=== PATIENT | female | born 1950 | race Caucasian/White ===

== ENCOUNTER → 2018-02-27 05:27 | Outpatient (CLI) | payer MEDICARE, MEDICAID, SELFPAY ==
--- NOTE | 2018-02-27 11:06 | STRESSREP_ITS ---
Stress Test Report Date: 02/27/2018 Procedure: Pharmacologic stress nuclear imaging study Indications: Chest pain; CAD; PCI Consent: Per the patient Procedure: The patient underwent pharmacologic (Regadenoson) evaluation with a peak heart rate of 98 beats per minute (63 predicted maximal heart rate) and a peak blood pressure of 170/82 mmHg. The baseline ECG demonstrated normal sinus rhythm; nonspecific T wave abnormality. The peak pharmacologic ECG demonstrated no obvious ECG changes. There was an isolated PVC during recovery. There was no complaint of chest discomfort during pharmacologic infusion or recovery. The examination was discontinued secondary to completion of protocol. Impression: 1. Pharmacologic (Regadenoson) evaluation 2. Peak pharmacologic ECG with no obvious ECG changes. 3. There was an isolated PVC during recovery 4. Nuclear images pending Myocardial perfusion imaging study: Technique: The patient was injected with 14.5 millicuries of technetium 99m Cardiolite and subsequently rest SPECT Cardiolite nuclear imaging was obtained in the horizontal long, vertical long, and short axis views. The patient underwent pharmacologic (Regadenoson) evaluation with a peak heart rate of 98 beats per minute (63 % percent predicted maximal heart rate) and a peak blood pressure of 170/82 mmHg. The patient was injected with 44.2 millicuries of technetium 99m Cardiolite and subsequently stress SPECT Cardiolite nuclear imaging was obtained in the horizontal long, vertical long, and short axis views. A gated Cardiolite study at peak stress was obtained. Interpretation: Rest and stress SPECT Cardiolite nuclear imaging status post realignment, normalization, and attenuation correction demonstrate relative uniform tracer uptake and myocardial perfusion appearing within normal limits. There is end systolic thickening and brightening. The gated Cardiolite study demonstrates myocardial thickening and inward wall motion. The reported LVEF is 73 %. Impression: 1. Rest and stress SPECT Cardiolite nuclear imaging demonstrate relative uniform tracer uptake and myocardial perfusion appearing within normal limits. 2. The gated Cardiolite study reports an LVEF of 73 %. This note was generated with [employer] software. It may contain incorrect words, spelling, and punctuation that were not noted in checking the note before signing.
== END ==
PROVIDERS: Family Provider Family Medicine; PCP Family Medicine; Visit Provider Family Medicine
DX: R07.89 Other chest pain (principal)
CPT/HCPCS: 78452; 93017; A9500; A4216; J2785

== ENCOUNTER 2018-08-28 18:47 | Inpatient (IN) | payer MEDICARE, MEDICAID, SELFPAY ==
[2018-08-28] VITALS (8 sets, daily range): BP systolic 119–158; BP diastolic 75–93; PULSE 95–141; RESP 16–23; TEMP 36.8–36.9; O2SAT 95–98; BMI 46.5; BMI 44.0
--- NOTE | 2018-08-28 19:27 | EKG12_ITS ---
Test Reason : CP Blood Pressure : / mmHG Vent. Rate : 110 BPM Atrial Rate : 110 BPM P-R Int : 166 ms QRS Dur : 088 ms QT Int : 354 ms P-R-T Axes : 083 -04 017 degrees QTc Int : 479 ms Sinus tachycardia Cannot rule out Anterior infarct , age undetermined Abnormal ECG Confirmed by JENA HENDRICKSON, MELODIE ([id number]), editor publications MILTON CALLEJAS ([id number]) on 09/02/2018 3:50:12 PM Referred By: Pantera Pizano Confirmed By:MELODIE BELLA MD
[2018-08-28 19:38] LABS: Absolute Lymphocyte Count 0.47 X10^3/ul (0.83-4.51); Absolute Neutrophil Count 3.3 X10^3/uL (2.0-7.7); Basophil# 0.01 X10^3/uL; Basophil% 0.2 % (0-1); Eosinophil# 0.47 X10^3/uL; Hematocrit 46.6 % (37-47); Lymphocyte # 0.47 X10^3/ul (4.0); Mean Corp Hgb Conc 34.3 g/gl (32-36); Mean Corpuscular Hgb 31.7 pg (27.0-32.0); Mean Corpuscular Volume 92.3 fL (81-99); Monocyte% 17.3 % (0-10); Neutrophil # 3.34 X10^3/uL (2.7-7.7); Neutrophil % 64.3 % (47-70); Platelet Count 170 K/mm3 (150-450); RBC Distribution Width SD 47.1 fl (35.1-43.9); Red Blood Count 5.05 M/mm3 (4.2-5.4); White Blood Count 5.2 K/mm3 (4.4-11.0)
[2018-08-28 19:40] LABS: Differential Indicated SCAN CRITERIA MET; POSITIVE COUNT NO; POSITIVE DIFFERENTIAL YES; POSITIVE MORPHOLOGY NO
--- NOTE | 2018-08-28 19:42 | RAD_ITS ---
STUDY: X-RAY CHEST REASON FOR EXAM: Female, 68 years old. CHEST PAIN TECHNIQUE: Single frontal view of the chest. COMPARISON: 7. FINDINGS: Chronic appearing increased interstitial lung markings. There is no demonstrated pleural abnormality. Normal heart size. Normal mediastinum and lv. Normal visualized pulmonary arteries. There is atherosclerotic calcification of the aortic arch with tortuosity. There are diffuse degenerative changes of the visualized thoracic spine. There is degenerative osteoarthritis of the bilateral shoulders. There is no demonstrated abnormality of the visualized soft tissue structures of the upper abdomen. RAD/Chest 1 View (Portable) IMPRESSION: There are no acute findings. Electronically Signed: John Kitchen MD at 20:17 EST , Service support ,
[2018-08-28 20:05] LABS: Anion Gap 11 (5-15); BUN 22 mg/dL (7-18); BUN/Creat Ratio 23.9 RATIO (10-20); Calcium,Total 8.7 mg/dL (8.5-10.1); Chloride 101 mmol/L (98-107); Creatinine, Serum 0.92 mg/dL (0.55-1.02); EST Glomerular Filtration Rate 65 mL/min (>60); Est Glom Filt Rate - Afr Amer 79 mL/min (>60); Estimated Creatinine Clearance 43.21 ml/min; Glucose 147 mg/dL (74-106); Potassium 3.7 mmol/L (3.5-5.1); Sodium Level 137 mmol/L (136-145)
[2018-08-28 20:14] LABS: Anisocytosis RARE; Macrocytosis RARE; Platelet Estimate ADEQUATE (ADEQ)
[2018-08-28] MEDS: 0.9% Normal Saline 1,000 ML 150 ML IV (20:22)
--- NOTE | 2018-08-28 20:37 | ED.VISSUMM ---
- ER Visit Summary Date of Service: 08/28/18 Chief Complaint: Chest pain History of Present Illness: The patient is a 68 F who presents via EMS with history of chest pain. Patient states that approximately an hour prior to EMS arrival she laid down to listen to some audiobooks and felt heaviness across her chest that radiated to both arms and into her neck. She denies shortness of breath. She got up and took 2 nitro tabs which she admits were quite old. This did not change her pain. EMS was called. EMS gave her aspirin along with 1 sublingual nitro and her pain resolved. Patient does state she was recently started on an antibiotic for UTI. She is been checking her vital signs this week and noted that her heart rate has been higher than normal, in the 90s instead of the 60s. Patient does have history of cardiac disease with 2 stents, hypertension, and high cholesterol. She continues to smoke a pack and a half a day. Physical Examination: Vital signs at triage are significant for heart rate of 118, otherwise unremarkable. Patient sitting upright in bed no acute distress. Heart rate is in the upper 90s at the time of my exam. Head neck examination is grossly unremarkable. Heart is regular rate and rhythm. Lung sounds are grossly clear. Abdomen is soft, obese, nontender. Extremity examination feels palpable distal pulses. Test Results: EKG is sinus tach at [address] change. Portable chest x-ray shows no acute findings. CBC is significant only for hemoglobin concentrated at 16. Chemistry studies significant only for glucose of 147. Troponin is minimally elevated at 0.052. Emergency Department Course and Treatment: Patient received aspirin and 1 sublingual nitro with EMS. She has remained pain-free throughout her ER stay. Patient did have a nuclear stress test in February of this year that was unremarkable. On repeat evaluation patient denies any chest pain and states overall she feels good at this time. She will be given a dose of Lovenox and admitted for further cycling of her cardiac enzymes and evaluation. MOHINI score: 5/7 Treatment Plan: [] Disposition: Admit Impression: Chest pain This note was generated with [employer] dictation software. It may contain incorrect words, spelling, and punctuation that were not noted in review of the chart prior to signing ED Disposition - Plan for ED Patient: Chief Complaint: Chest Pain Referrals: Adin Zaragoza MD [Primary Care Provider] -
--- NOTE | 2018-08-28 20:41 | PCM.HP.STD ---
Problem List (1) NSTEMI (non-ST elevated myocardial infarction) Status: Acute (2) Pre-diabetes Status: Chronic (3) Hyperlipidemia Status: Chronic (4) Hypertension Status: Chronic (5) Coronary artery disease Status: Chronic History of Present Illness Date of Admission: 08/28/18 Chief Complaint: chest Pain The patient is a 68 year old F with a significant history of hypertension; hyperlipidemia; prediabetes; CAD status post stents about 20 years ago who presented with gradual onset progressively worsening chest pain while she was lying down. Her chest pain started about 1 hour to 1/2 hours prior to presentation. Her chest pain span her entire chest. The chest pain radiated to her bilateral neck into bilateral arms. She described the pain as tingling and aching. She denies any nausea, vomiting, or diaphoresis. She thinks that her CAD about 20 years ago requiring stent was different from this 1. She reported at that time she had a more deeper pain. She has some old nitroglycerin tablets at home that she took but she had no relief from it. She thinks she did not have any relief from the nitroglycerin because it was old. The emergency squad gave him 3 baby aspirin and nitroglycerin which relieved her pain. At home patient takes Tylenol 324 mg daily and on the day of presentation he took the same dose in the morning and later received more aspirin from paramedics as stated above. Patient reported that the last couple of days she had noticed that her heart rate has been high. She reported that typically her heart rate is between 60-70s but recently her heart rate has been in the high 90s. At emergency department patient had sinus tachycardia with heart rate in the 110s. Patient reported that she was started on antibiotics for the last 3 days because of UTI. At emergency department patient received Lovenox therapeutic dose. In February of this year (2017) patient had unremarkable nuclear stress test. Past Medical History Past Medical History (Chronic Problems): Chronic Problems Pre-diabetes (Chronic) Hyperlipidemia (Chronic) Hypertension (Chronic) Coronary artery disease (Chronic) Allergies No Known Allergies Allergy (Verified 08/28/18 18:47) Home Medications: Ambulatory Orders Medication Instructions Recorded Furosemide [Lasix] 20 mg PO DAILY #30 tablet 04/09/15 Amlodipine [Norvasc] 10 mg PO DAILY 04/10/15 Simvastatin [Zocor] 40 mg PO QHS 04/10/15 Benazepril HCl [Lotensin] 20 mg PO BID 10/17/15 Clonidine HCl 0.3 mg PO DAILY 10/17/15 Clopidogrel Bisulfate [Plavix] 75 mg PO DAILY 10/17/15 Hydrochlorothiazide [Hctz] 25 mg PO DAILY 10/17/15 Losartan Potassium [Cozaar] 50 mg PO BID 10/17/15 Acetaminophen [Tylenol Arthritis] 650 mg PO Q4H PRN PRN 08/28/18 Ascorbic Acid [Vitamin C] 500 mg PO DAILY@0800 08/28/18 Aspirin 325 mg PO DAILY@0808/28/18 Calcium Carb/Vitamin D 1 tab PO DAILY@0808/28/18 [Caltrate-600 With Vit D Tab] Glucosam/Rashaun-Msm1/C/Godfrey/Bosw 1 tab PO DAILY 08/28/18 [Osteo Bi-Flex Caplet] Multivit-Min/FA/Lycopen/Lutein 1 tab PO DAILY 08/28/18 [Adults 50+ Multivitamin Tablet] [place]-3 Fatty Acids/Fish Oil [Cvs 1 cap PO BID 08/28/18 Fish Oil 1,200 mg Softgel] Smz/Tmp Ds [Bactrim Ds] 1 tab PO BID 08/28/18 Surgical History: - - Leg surgery secondary to trauma, coronary artery stents Psychiatric History: No pertinent psych hx VOCATIONAL TRAINING DIRECTOR History: No pertinent VOCATIONAL 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 Denies: Palpitations Respiratory: Denies: Cough, Shortness of breath at rest, Sputum production Gastrointestinal: Denies: Abdominal Pain, Nausea, Vomiting Genitourinary: Denies: Dysuria Musculoskeletal: Denies: Joint Pain, Joint Tenderness Skin: Denies: Rash, Wounds Neurological: Denies: Confusion, Focal weakness, Numbness Psychiatric: Denies: Anxiety, Depression, Homicidal Ideations, Suicidal Ideations Hematologic/ Lymphatic: Denies: Easy Bruising, Easy Bleeding VTE Information - Inpt Only VTE Present on Admission: No VTE Mechan Device Prophylaxis: None VTE Pharm Prophylaxis ordered?: No Reason prophylaxis not ordered:: Treatment Not Indicated - Received Lovenox therapeutic dose in the emergency department. Patient Problems: Active and Suspected Problems NSTEMI (non-ST elevated myocardial infarction) (Acute) - Physical Exam General: Alert, Oriented x3, Cooperative HEENT: Atraumatic, PERRLA, EOMI, Normocephalic Neck: Supple, No JVD, Negative Carotid Bruits Lungs: Diminished Cardiovascular: No murmurs, Tachycardic Abdomen: Bowel Sounds Present, Soft, Non Tender Extremities: No edema, Capillary Refill Less than 3 Seconds Skin: No rashes, No breakdown Musculoskeletal: No Tenderness to Palpation of Joints or Extremities Neurological: Neuro grossly intact Psych/Mental Status: Normal Affect, Appropriate Vital Signs Temp Pulse Resp BP Pulse Ox 98.4 F 97 21 H 158/79 H 97 08/28/18 18:48 08/28/18 20:19 08/28/18 20:19 08/28/18 20:19 08/28/18 20:19 Oxygen Flow Rate (L/min) 2 Oxygen Delivery Method Nasal Cannula Weight: 108.2 kg Body Mass Index (BMI) 46.5 Laboratory Tests Past 24 Hrs 08/28/18 08/28/18 18:45 18:45 WBC 5.2 RBC 5.05 Hgb 16.0 H Hct 46.6 MCV 92.3 MCH 31.7 MCHC 34.3 RDW 14.0 RDW Differential 47.1 H Plt Count 170 MPV 11.0 Immature Gran % (Auto) 0.200 Neut % (Auto) 64.3 Lymph % (Auto) 9.0 L [place] % (Auto) 17.3 H Eos % (Auto) 9.0 H Baso % (Auto) 0.2 Absolute Neuts (auto) 3.3 Absolute Lymphs (auto) 0.47 L Total Counted Not Reportable Differential Comment SEE COMMENT Platelet Estimate ADEQUATE Anisocytosis RARE Macrocytosis RARE Sodium 137 Potassium 3.7 Chloride 101 Carbon Dioxide 25.0 Anion Gap 11 BUN 22 H Creatinine 0.92 Estim Creat Clear Calc 43.21 Est GFR (MDRD) Af Amer 79 Est GFR (MDRD) Non-Af 65 BUN/Creatinine Ratio 23.9 H Glucose 147 H Calcium 8.7 Troponin I 0.052 H Assessment/Plan All Active Problems NSTEMI (non-ST elevated myocardial infarction) (Acute) The patient is a 68 year old F with a significant history of hypertension; hyperlipidemia; prediabetes; CAD status post stents about 20 years ago who presented with gradual onset progressively worsening chest pain while she was lying down and found to have elevated troponin on admission consented for likely NSTEMI. Probable NSTEMI MOHINI score of UA/ STEMI equal to five-points who translates to 26% all cause mortality risk, new or recurrent LA, or severe recurrent ischemia requiring urgent revascularization. Positive for MOHINI score were: age more than 65 years; more than 3 CAD risk factors (hypertension, hypercholesterolemia, current smoker); known CAD; aspirin use in past 7 days; and positive cardiac marker. Heart score of 6 points; moderate score. Risk of major adverse cardiac even of 12 to16.6%. Parameters of heart score was moderate suspicion; age more than 65 years; more than 3 risks factors or history of atherosclerotic disease (hypertension; hypercholesterolemia; obesity; current smoking; prior LA.) Admit to a monitored bed on PCU CXR independently reviewed confirms no acute cardiopulmonary pathology. But with chronic appearing increased interstitial lung markings. EKG independently reviewed confirms sinus tachycardia We will load with Plavix and Place Nitropaste on patient chest. Continue home aspirin 325 mg daily Continue home maintenance dose Plavix after Plavix loading.. Received Lovenox therapeutic dose x1 at emergency department. We will hold off further Lovenox until cardiology sees patient. On home low-dose simvastatin. Hold. High intensity Lipitor ordered. Serial cardiac enzymes trended up Stat EKG as needed for chest pain Due to high risk will consult cardiology for further risk stratification and management. Hypertension On admission blood pressure was not within goal Continue amlodipine, benazepril, clonidine and hydrochlorthiazide Trend blood pressures and adjust blood pressure medication as necessary Sinus tachycardia This could be due to her chest pain. Will check TSH to rule out hyperthyroidism.. Tobacco abuse Counseled Patient declined nicotine patch. Acute cystitis. Patient was on treatments with home Bactrim. She was prescribed 20 doses of Bactrim. So far she has taken 7 doses. Bactrim continued. History of bilateral leg swelling. Patient denies heart failure Home Lasix continued. Bilateral leg pain Home absorbine plus rapid relief continue. Tylenol as needed continued. DVT prophylaxis Not indicated as patient received therapeutic dose of Lovenox at emergency department. Patient with bilateral leg pain will not place SCD at this time. Evaluate for further need of chemoprophylaxis. Code Visit OBSV E&M: 15330 Initial observation care L3
[2018-08-28] MEDS: Enoxaparin 100 MG/ML Syringe SC (20:53)
--- NOTE | 2018-08-28 22:14 | EKG12_ITS ---
Test Reason : CP ADMIT Blood Pressure : / mmHG Vent. Rate : 097 BPM Atrial Rate : 097 BPM P-R Int : 178 ms QRS Dur : 094 ms QT Int : 392 ms P-R-T Axes : 070 -13 012 degrees QTc Int : 497 ms Normal sinus rhythm Cannot rule out Anterior infarct , age undetermined Abnormal ECG When compared with ECG of 28-AUG-2018 18:55, MANUAL COMPARISON REQUIRED, DATA IS UNCONFIRMED Confirmed by JENA HENDRICKSON, MELODIE ([id number]), tape editor MILTON CALLEJAS ([id number]) on 09/02/2018 4:02:27 PM Referred By: Pantera Pizano Confirmed By:MELODIE BELLA MD
[2018-08-28] MEDS: Nitroglycerin Oint 1 INCH PACKET TRANSDERM. (22:45)
[2018-08-28] MEDS: Atorvastatin Calcium 80 MG Tablet PO (22:45)
[2018-08-28] MEDS: Clopidogrel Bisulfate 300 MG Tablet PO (22:45)
[2018-08-28] MEDS: Acetaminophen 325 MG Tablet 650 MG PO (22:49)
[2018-08-28 23:13] LABS: Thyroid Stim Hormone (TSH) 1.05 uIU/mL (0.358-3.74)
[2018-08-29] VITALS (14 sets, daily range): BP systolic 95–150; BP diastolic 49–84; PULSE 53–135; RESP 14–18; TEMP 36.2–37.1; O2SAT 93–95
--- NOTE | 2018-08-29 05:55 | EKG12_ITS ---
Test Reason : AM EKG Blood Pressure : / mmHG Vent. Rate : 095 BPM Atrial Rate : 095 BPM P-R Int : 172 ms QRS Dur : 086 ms QT Int : 382 ms P-R-T Axes : 052 -20 -03 degrees QTc Int : 480 ms Normal sinus rhythm Low voltage QRS Cannot rule out Anterior infarct , age undetermined Abnormal ECG When compared with ECG of 28-AUG-2018 21:50, MANUAL COMPARISON REQUIRED, DATA IS UNCONFIRMED Confirmed by JENA HENDRICKSON, MELODIE ([id number]), senior editor MILTON CALLEJAS ([id number]) on 09/02/2018 4:01:46 PM Referred By: Pantera Pizano Confirmed By:MELODIE BELLA MD
[2018-08-29] MEDS: Nitroglycerin Oint 1 INCH PACKET TRANSDERM. (06:00)
[2018-08-29 06:26] LABS: Hematocrit 42.3 % (37-47); Hemoglobin 14.2 g/dl (12.0-15.0); Mean Corp Hgb Conc 33.6 g/gl (32-36); Mean Corpuscular Hgb 31.2 pg (27.0-32.0); Mean Platelet Vol. 11.3 fl (6.2-12.0); Platelet Count 141 K/mm3 (150-450); RBC Distribution Width CV 14.2 % (11.6-14.6); RBC Distribution Width SD 46.9 fl (35.1-43.9); Red Blood Count 4.55 M/mm3 (4.2-5.4)
[2018-08-29 06:27] LABS: Scan Indicated on CBC? Y/N NO
[2018-08-29 06:32] LABS: International Normalized Ratio 1.2
[2018-08-29 06:33] LABS: Partial Thromboplast Time 42.5 Seconds (24.1-36.2)
[2018-08-29 06:46] LABS: Anion Gap 9 (5-15); BUN 15 mg/dL (7-18); Chloride 108 mmol/L (98-107); Cholesterol 85 mg/dL (200); Creatinine, Serum 0.75 mg/dL (0.55-1.02); EST Glomerular Filtration Rate 82 mL/min (>60); Est Glom Filt Rate - Afr Amer 100 mL/min (>60); Estimated Creatinine Clearance 39.75 ml/min; Glucose 123 mg/dL (74-106); High Density Lipoprotein 22 mg/dL; Potassium 3.6 mmol/L (3.5-5.1); Sodium Level 141 mmol/L (136-145); Triglycerides 156 mg/dL; Very Low Density Lipoprotein 31 mg/dL (5-40)
--- NOTE | 2018-08-29 10:08 | CON.PCM_ITS ---
Problem List (1) Chest pain Status: Acute Reason for Consult Date of Consultation: 08/29/18 History of Present Illness: The patient is a 68 year old F with past medical history significant for hypertension, coronary artery disease, dyslipidemia, diabetes mellitus and nicotine dependence. She presented to the emergency room with complaints of chest pain yesterday. According to the patient, the discomfort started at rest. She describes it as a heavy sensation across her anterior chest and some tingling in her right arm. She could not identify any exacerbating factors. According to her, the discomfort was relieved when she was given sublingual nitroglycerin in the emergency room. She has not had any recurrence of her chest pain since then. X Patient denies any recent history of exertional angina or shortness of breath. According to her, she has had coronary stents put in few years ago. However she is not sure of the neck timeframe. Denies any orthopnea or paroxysmal nocturnal dyspnea. [] Past Medical History Allergies/Adverse Reactions: Allergies No Known Allergies Allergy (Verified 08/28/18 18:47) Home Medications: Ambulatory Orders Medication Instructions Recorded Furosemide [Lasix] 20 mg PO DAILY #30 tablet 04/09/15 Amlodipine [Norvasc] 10 mg PO DAILY 04/10/15 Simvastatin [Zocor] 40 mg PO QHS 04/10/15 Benazepril HCl [Lotensin] 20 mg PO BID 10/17/15 Clonidine HCl 0.3 mg PO DAILY 10/17/15 Clopidogrel Bisulfate [Plavix] 75 mg PO DAILY 10/17/15 Hydrochlorothiazide [Hctz] 25 mg PO DAILY 10/17/15 Losartan Potassium [Cozaar] 50 mg PO BID 10/17/15 Acetaminophen [Tylenol Arthritis] 650 mg PO Q4H PRN PRN 08/28/18 Ascorbic Acid [Vitamin C] 500 mg PO DAILY@0800 08/28/18 Aspirin 325 mg PO DAILY@0800 08/28/18 Calcium Carb/Vitamin D 1 tab PO DAILY@0800 08/28/18 [Caltrate-600 With Vit D Tab] Glucosam/Rashaun-Msm1/C/[place]/Bosw 1 tab PO DAILY 08/28/18 [Osteo Bi-Flex Caplet] Multivit-Min/FA/Lycopen/Lutein 1 tab PO DAILY 08/28/18 [Adults 50+ Multivitamin Tablet] [place]-3 Fatty Acids/Fish Oil [Cvs 1 cap PO BID 08/28/18 Fish Oil 1,200 mg Softgel] Smz/Tmp Ds [Bactrim Ds] 1 tab PO BID 08/28/18 Past Medical History (Chronic Problems): Chronic Problems Pre-diabetes (Chronic) Hyperlipidemia (Chronic) Hypertension (Chronic) Coronary artery disease (Chronic) Surgical History: - - Leg surgery secondary to trauma, coronary artery stents Psychiatric History: No pertinent psych hx 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: No pertinent PAPER COATING SUPERVISOR history - *Family History Maternal Family History: Family History (Last Updated 08/28/18 @ 22:32 by Pantera Pizano MD) Brother Cancer History Items: No pertinent history Paternal Family History: Family History (Last Updated 08/28/18 @ 22:32 by Pantera Pizano MD) Brother Cancer History Items: Heart Disease Lives: Alone Smoking Status: Current every day smoker Tobacco Use: Cigarettes Alcohol: None Review of Systems - Review of Systems General: Denies: Fever, Chills Cardiovascular: Reports: Chest Discomfort at Rest - See history of presenting illness, Peripheral Edema. Denies: Orthopnea, PND Respiratory: Denies: Cough, Hemoptysis Gastrointestinal: Denies: Abdominal Discomfort, Jaundice, Nausea Neurological: Reports: History of CVA Subjectve: Comfortable. No apparent distress Objective: Vital Signs Temp Pulse Resp BP Pulse Ox 98.6 F 92 16 141/84 H 94 08/29/18 05:58 08/29/18 07:22 08/29/18 05:58 08/29/18 05:58 08/29/18 07:12 Oxygen Flow Rate (L/min) 2 Oxygen Delivery Method Room Air Weight: 102.3 kg Body Mass Index (BMI) 44.0 General: Awake, Alert, Oriented x 3, No Acute Distress HEENT: Atraumatic, Normocephalic Oral: Moist Mucosa Neck: No JVD Lungs: Clear to auscultation Cardiovascular: Regular Rhythm, Normal S1, Normal S2 Vascular: No Carotid Bruits Abdomen: Bowel Sounds Present, Soft Extremities: Bilateral Edema +1 Neurological: - - Grossly intact Psych/Mental Status: Appropriate 08/28/18 18:45: WBC 5.2, RBC 5.05, Hgb 16.0 H, Hct 46.6, MCV 92.3, MCH 31.7, MCHC 34.3, RDW 14.0, RDW Differential 47.1 H, Plt Count 170, MPV 11.0, Immature Gran % (Auto) 0.200, Neut % (Auto) 64.3, Lymph % (Auto) 9.0 L, [place] % (Auto) 17.3 H, Eos % (Auto) 9.0 H, Baso % (Auto) 0.2, Absolute Neuts (auto) 3.3, Total Counted Not Reportable 08/28/18 18:45: Sodium 137, Potassium 3.7, Chloride 101, Carbon Dioxide 25.0, Anion Gap 11, BUN 22 H, Creatinine 0.92, Est GFR (MDRD) Af Amer 79, Est GFR (MDRD) Non-Af 65, BUN/Creatinine Ratio 23.9 H, Glucose 147 H, Calcium 8.7, Troponin I 0.052 H 08/28/18 21:45: Troponin I 0.079 H 08/29/18 01:05: Troponin I 0.094 H 08/29/18 05:30: WBC 5.0, RBC 4.55, Hgb 14.2, Hct 42.3, MCV 93.0, MCH 31.2, MCHC 33.6, RDW 14.2, RDW Differential 46.9 H, Plt Count 141 L, MPV 11.3 08/29/18 05:30: PT 15.0 H, INR 1.2, APTT 42.5 H 08/29/18 05:30: Sodium 141, Potassium 3.6, Chloride 108 H, Carbon Dioxide 24.0, Anion Gap 9, BUN 15, Creatinine 0.75, Est GFR (MDRD) Af Amer 100, Est GFR (MDRD) Non-Af 82, BUN/Creatinine Ratio 20.0, Glucose 123 H, Calcium 8.0 L, Triglyceri les 156, Cholesterol 85, LDL Cholesterol 32, VLDL Cholesterol 31, HDL Cholesterol 22 L Rhythm: Normal sinus rhythm EKG: Normal sinus rhythm. Nonspecific ST changes ECHO: Stress Test: Cardiac Cath: PCI: CT Surgery: Holter monitor: EPS: PPM: CXR: Chest CT Scan: Assessment/Plan 1. Chest discomfort with minimally elevated troponin. Consider non-ST elevation myocardial infarction/unstable angina. On aspirin. Agree with starting clopidogrel. Start low-dose beta-blockers. Change nitrates to p.o. Patient has had a stress test done about 6 months ago. Her ejection fraction was noted to be 73%. No ischemia was noted. However with this episode of chest discomfort and minimally elevated troponin and her history of coronary artery disease with percutaneous intervention in the past, I recommended cardiac catheterization with coronary angiography and possible revascularization. Risks benefits were explained to the patient in detail. She understands these and wishes to proceed with cardiac catheterization. However she insists that she will have it done as outpatient. She refuses to stay in the hospital. She is aware of risks of another [place], cardiac arrhythmias and sudden cardiac . She understands these but still insists on going home today. 2. Diabetes mellitus. 3. History of CAD. 4. Hypertension. 5. Dyslipidemia. 6. Nicotine dependence. Counseled to quit As noted above, patient insists on going home. Recommend follow-up as outpatient with Dr. Alford early next week.
[2018-08-29] MEDS: cloNIDine HCl 0.1 MG Tablet 0.3 MG PO (10:49)
[2018-08-29] MEDS: Losartan Potassium 50 MG Tablet PO ×2 (10:50→21:38)
[2018-08-29] MEDS: hydroCHLOROthiazide 25 MG Tablet PO (10:51)
[2018-08-29] MEDS: amLODIPine 10 MG Tablet PO (10:52)
[2018-08-29] MEDS: Furosemide 20 MG Tablet PO (10:52)
[2018-08-29] MEDS: Clopidogrel Bisulfate 75 MG Tablet PO (10:53)
[2018-08-29] MEDS: Lisinopril 20 MG Tablet PO ×2 (10:54→21:38)
--- NOTE | 2018-08-29 13:26 | PCM.PROGNOTE ---
Patient Problems: Active and Suspected Problems NSTEMI (non-ST elevated myocardial infarction) (Acute) Chest pain (Acute) Subjective: The patient came in with chest pain across the anterior chest wall with tingling in the right arm and some radiation into the right side of her neck. She states this pain felt like the last time she needed a stent. She states the pain is all gone now. She denies CP/tightness/heaviness/pressure/SOB/dizziness/LH. Initially she wanted to go home this AM, but is now willing to stay for further testing. 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 - Physical Exam General: Alert, Oriented x3, Cooperative HEENT: Atraumatic, PERRLA, EOMI, Normocephalic Neck: Supple, No JVD, Negative Carotid Bruits Lungs: Clear to auscultation, Normal air movement Cardiovascular: Regular rate, No murmurs Abdomen: Bowel Sounds Present, Soft, Non Tender Extremities: No edema, Capillary Refill Less than 3 Seconds Skin: No rashes, No breakdown Musculoskeletal: No Tenderness to Palpation of Joints or Extremities Neurological: Cranial nerves II-XII grossly intact Psych/Mental Status: Normal Affect, Appropriate, Alert and oriented to time, place, person, mood and affect Vital Signs Temp Pulse Resp BP Pulse Ox 97.8 F 85 18 150/76 H 95 08/29/18 10:46 08/29/18 10:46 08/29/18 10:46 08/29/18 10:46 08/29/18 10:46 Oxygen Flow Rate (L/min) 2 Oxygen Delivery Method Room Air Weight: 225 lb 8.526 oz Body Mass Index (BMI) 44.0 Laboratory Tests Past 24 Hrs 08/28/18 08/28/18 08/28/18 18:45 18:45 21:45 WBC 5.2 RBC 5.05 Hgb 16.0 H Hct 46.6 MCV 92.3 MCH 31.7 MCHC 34.3 RDW 14.0 RDW Differential 47.1 H Plt Count 170 MPV 11.0 Immature Gran % (Auto) 0.200 Neut % (Auto) 64.3 Lymph % (Auto) 9.0 L Bennett % (Auto) 17.3 H Eos % (Auto) 9.0 H Baso % (Auto) 0.2 Absolute Neuts (auto) 3.3 Absolute Lymphs (auto) 0.47 L Total Counted Not Reportable Differential Comment SEE COMMENT Platelet Estimate ADEQUATE Anisocytosis RARE Macrocytosis RARE PT INR APTT Sodium 137 Potassium 3.7 Chloride 101 Carbon Dioxide 25.0 Anion Gap 11 BUN 22 H Creatinine 0.92 Estim Creat Clear Calc 43.21 Est GFR (MDRD) Af Amer 79 Est GFR (MDRD) Non-Af 65 BUN/Creatinine Ratio 23.9 H Glucose 147 H Calcium 8.7 Troponin I 0.052 H 0.079 H Triglycerides Cholesterol LDL Cholesterol VLDL Cholesterol HDL Cholesterol TSH 08/28/18 08/29/18 08/29/18 21:45 01:05 05:30 WBC 5.0 RBC 4.55 Hgb 14.2 Hct 42.3 MCV 93.0 MCH 31.2 MCHC 33.6 RDW 14.2 RDW Differential 46.9 H Plt Count 141 L MPV 11.3 Immature Gran % (Auto) Neut % (Auto) Lymph % (Auto) Bennett % (Auto) Eos % (Auto) Baso % (Auto) Absolute Neuts (auto) Absolute Lymphs (auto) Total Counted Differential Comment Platelet Estimate Anisocytosis Macrocytosis PT INR APTT Sodium Potassium Chloride Carbon Dioxide Anion Gap BUN Creatinine Estim Creat Clear Calc Est GFR (MDRD) Af Amer Est GFR (MDRD) Non-Af BUN/Creatinine Ratio Glucose Calcium Troponin I 0.094 H Triglycerides Cholesterol LDL Cholesterol VLDL Cholesterol HDL Cholesterol TSH 1.05 08/29/18 08/29/18 05:30 05:30 WBC RBC Hgb Hct MCV MCH MCHC RDW RDW Differential Plt Count MPV Immature Gran % (Auto) Neut % (Auto) Lymph % (Auto) Bennett % (Auto) Eos % (Auto) Baso % (Auto) Absolute Neuts (auto) Absolute Lymphs (auto) Total Counted Differential Comment Platelet Estimate Anisocytosis Macrocytosis PT 15.0 H INR 1.2 APTT 42.5 H Sodium 141 Potassium 3.6 Chloride 108 H Carbon Dioxide 24.0 Anion Gap 9 BUN 15 Creatinine 0.75 Estim Creat Clear Calc 39.75 Est GFR (MDRD) Af Amer 100 Est GFR (MDRD) Non-Af 82 BUN/Creatinine Ratio 20.0 Glucose 123 H Calcium 8.0 L Troponin I Triglycerides 156 Cholesterol 85 LDL Cholesterol 32 VLDL Cholesterol 31 HDL Cholesterol 22 L TSH Medical Necessity - Tobacco Use Smoking Status: Current every day smoker Tobacco Use: Cigarettes Assessment/Plan All Active Problems NSTEMI (non-ST elevated myocardial infarction) (Acute) Chest pain (Acute) 1. Chest pain / NSTEMI / Hx CAD - Possible cath friday. Cardiology following. Trop 0.094 max. TSH normal. Lipid panel done. Continue tele. Continue statin, aspirin, HCTZ, imdur, lisinopril, losartan, metoprolol, catapres, norvasc. It is unlear why she is on both ROSIE and ARB. Last stress about 6 months ago. 2. Prediabetes - dietary eval/diabetic diet. 3. Nicotine abuse - patch if desired. Needs cessation. 4. HTN - mildly elevated. 5. HLD - statin 6. UTI - started as outpatient on bactrim 3 days prior to admission. This would be day 4, will do one more day then stop. DVT ppx: lovenox DC planning: Pending cath results Friday This patient was seen by Dong Lee PA-C under the supervision of Doctor Schulz.
[2018-08-29] MEDS: Smz/Tmp Ds Tablet 1 TABLET PO (16:18)
--- NOTE | 2018-08-29 16:26 | CM.UR ---
See instrument and control technician. Met face to face with patient, introduced myself and explained my role. She agreed to assessment at this time. Plan is for heart cath on Friday. Originally she asked to be discharged and come back for outpatient heart cath however Dr. braun told her she is not recommending that. Patient's breath smelled like stale cigarette smoke during assessment. Enrique Briceño, JANNY, [facility].
--- NOTE | 2018-08-29 16:28 | CM.UR ---
Heart Cath planned for Friday. has traditional MCR so can be transferred to MCR facility of her choice, should that become necessary. For any questions contact Case mgmt at ext [phone]
[2018-08-29] MEDS: Atorvastatin Calcium 80 MG Tablet PO (21:38)
[2018-08-29] MEDS: Metoprolol Tartrate 25 MG Tablet PO (21:39)
--- NOTE | 2018-08-29 21:56 | NURSING ---
RN in to assess patient and take VS, she is extremely resistive to care. She did allow me to take her VS but refused to let me complete a head to toe assessment. She did allow me to give her her evening medications. She did deny Chest pain at this time.
[2018-08-30] VITALS (13 sets, daily range): BP systolic 106–143; BP diastolic 42–71; PULSE 49–84; RESP 14–19; TEMP 36.4–36.9; O2SAT 95–99
--- NOTE | 2018-08-30 08:16 | PCM.PROGNOTE ---
Patient Problems: Active and Suspected Problems NSTEMI (non-ST elevated myocardial infarction) (Acute) Chest pain (Acute) Subjective: Afebrile, vital signs stable. Telemetry: SB/NSR and 2 runs of NSVT - asymptomatic Denies any CP, SOB, palpitations, lightheadedness All lab was personally reviewed. Plt's are WNL today. HGBA1C is 6.9 She is on both an ROSIE and an ARB and on Lasix and HCTZ - recent EF on nuclear stress was 75%? Objective: General: alert, oriented X3, NAD, appropriate with normal affect Neck: supple, trachea midline, carotids have brisk upstroke and normal pulse volume, no JVD, no carotid bruits Lungs: CTA, symmetric chest expansion, not tachypneic, able to lie flat with no respiratory distress Heart: Regular rate and rhythm, normal S1, normal S2, no murmur, no gallop, no rub, PMI is on the midclavicular line Abdomen: soft, NT, ND, BS's present Extremities: no edema, no calf tenderness, peripheral pulses are normal, no cyanosis - Physical Exam Vital Signs Temp Pulse Resp BP Pulse Ox 97.6 F L 57 L 18 123/62 H 99 08/30/18 02:30 08/30/18 07:27 08/30/18 02:30 08/30/18 02:30 08/30/18 02:30 Oxygen Flow Rate (L/min) 2 Oxygen Delivery Method Room Air Weight: 225 lb 8.526 oz Body Mass Index (BMI) 44.0 Intake and Output for Last 24 Hours 08/28/18 08/29/18 08/30/18 23:59 23:59 23:59 Intake Total 525 / 525 Balance 525 / 525 Medical Necessity - Tobacco Use Smoking Status: Current every day smoker Tobacco Use: Cigarettes Assessment/Plan All Active Problems NSTEMI (non-ST elevated myocardial infarction) (Acute) Chest pain (Acute) Impressions 1. NSTEMI 2. NSVT - potassium and mag are normal 3. tobacco dependence 4. Diabetes mellitus type 2-hemoglobin A1c is 6.9 5. Hyperlipidemia 6. Hypertension 7. History of coronary artery disease Cath in the AM Code Visit Inpatient E&M: 51860 Subs Hosp L2
[2018-08-30 09:27] LABS: Anion Gap 7 (5-15); BUN 18 mg/dL (7-18); BUN/Creat Ratio 20.9 RATIO (10-20); Calcium,Total 8.4 mg/dL (8.5-10.1); Chloride 106 mmol/L (98-107); Creatinine, Serum 0.86 mg/dL (0.55-1.02); EST Glomerular Filtration Rate 70 mL/min (>60); Est Glom Filt Rate - Afr Amer 85 mL/min (>60); Estimated Creatinine Clearance 46.22 ml/min; Glucose 111 mg/dL (74-106); Magnesium 2.2 mg/dL (1.6-2.6); Potassium 4.2 mmol/L (3.5-5.1); Sodium Level 137 mmol/L (136-145)
[2018-08-30 09:29] LABS: Hematocrit 44.7 % (37-47); Hemoglobin 15.1 g/dl (12.0-15.0); Mean Corp Hgb Conc 33.8 g/gl (32-36); Mean Corpuscular Hgb 31.4 pg (27.0-32.0); Mean Corpuscular Volume 92.9 fL (81-99); Mean Platelet Vol. 10.5 fl (6.2-12.0); Platelet Count 151 K/mm3 (150-450); RBC Distribution Width CV 14.3 % (11.6-14.6); RBC Distribution Width SD 48.1 fl (35.1-43.9); Red Blood Count 4.81 M/mm3 (4.2-5.4); White Blood Count 4.5 K/mm3 (4.4-11.0)
[2018-08-30 09:30] LABS: Scan Indicated on CBC? Y/N NO
[2018-08-30] MEDS: Acetaminophen 325 MG Tablet 650 MG PO (09:36)
[2018-08-30] MEDS: Smz/Tmp Ds Tablet 1 TABLET PO ×2 (09:36→17:43)
[2018-08-30] MEDS: Ascorbic Acid 500 MG Tablet PO (09:37)
[2018-08-30] MEDS: Calcium Carb/Vitamin D 1 TABLET Tablet PO (09:37)
[2018-08-30] MEDS: Aspirin 325 MG Tablet PO (09:37)
[2018-08-30] MEDS: Clopidogrel Bisulfate 75 MG Tablet PO (09:39)
[2018-08-30] MEDS: Metoprolol Tartrate 25 MG Tablet PO (09:40)
[2018-08-30] MEDS: amLODIPine 10 MG Tablet PO (09:40)
[2018-08-30] MEDS: hydroCHLOROthiazide 25 MG Tablet PO (09:42)
[2018-08-30] MEDS: Isosorbide Mononitrate 30 MG Tablet PO (09:42)
[2018-08-30] MEDS: Lisinopril 20 MG Tablet PO ×2 (09:43→21:34)
[2018-08-30 09:54] LABS: Hemoglobin A1c 6.9 % (4.2-6.3)
--- NOTE | 2018-08-30 11:48 | PCM.PN.CARD ---
Subjectve: Patient had a very brief episode of chest pressure yesterday in the afternoon. That made her change her mind and she decided to stay in the hospital. Objective: Vital Signs Temp Pulse Resp BP Pulse Ox 97.8 F 66 19 H 143/71 H 97 08/30/18 09:25 08/30/18 09:40 08/30/18 09:25 08/30/18 09:25 08/30/18 09:25 Oxygen Flow Rate (L/min) 2 Oxygen Delivery Method Room Air Weight: 102.3 kg Body Mass Index (BMI) 44.0 Intake and Output for Last 24 Hours 08/28/18 08/29/18 08/30/18 23:59 23:59 23:59 Intake Total 525 / 525 Balance 525 / 525 General: Awake, Alert, Oriented x 3, No Acute Distress HEENT: Atraumatic Neck: Supple Lungs: Clear to auscultation Cardiovascular: Regular Rhythm, Normal S1, Normal S2 Abdomen: Bowel Sounds Present, Soft Extremities: Bilateral Edema +1 Psych/Mental Status: Appropriate 08/30/18 08:54: WBC 4.5, RBC 4.81, Hgb 15.1 H, Hct 44.7, MCV 92.9, MCH 31.4, MCHC 33.8, RDW 14.3, RDW Differential 48.1 H, Plt Count 151, MPV 10.5 08/30/18 08:54: Hemoglobin A1c 6.9 H 08/30/18 08:54: Sodium 137, Potassium 4.2, Chloride 106, Carbon Dioxide 24.0, Anion Gap 7, BUN 18, Creatinine 0.86, Est GFR (MDRD) Af Amer 85, Est GFR (MDRD) Non-Af 70, BUN/Creatinine Ratio 20.9 H, Glucose 111 H, Calcium 8.4 L, Magnesium 2.2 Rhythm: Normal sinus rhythm. 4 beat run of nonsustained ventricular tachycardia yesterday. Also run of PACs yesterday. EKG: ECHO: Stress Test: Cardiac Cath: PCI: CT Surgery: Holter monitor: EPS: PPM: CXR: Chest CT Scan: Medical Necessity - Tobacco Use Smoking Status: Current every day smoker Tobacco Use: Cigarettes Assessment/Plan 1. Non-ST elevation myocardial infarction. Recommend cardiac catheterization with coronary angiography and possible revascularization. Risks benefits and alternatives explained. She understands these and wishes to proceed. We will schedule with Dr. Alford for tomorrow morning. 2. Diabetes mellitus. 3. History of CAD. 4. Hypertension. 5. Dyslipidemia. 6. Nicotine dependence. Counseled to quit 7. Very short run of nonsustained VT in the setting of #1 above. Continue beta-blockers. For cardiac cath. Also check 2D echocardiogram. As noted above, patient insists on going home. Recommend follow-up as outpatient with Dr. Alford early next week.
--- NOTE | 2018-08-30 11:51 | ECHOD_ITS ---
Reason For Study: chest pain Procedure This was a 2D Doppler, Color Flow transthoracic echocardiogram. Exam performed portable in ICU/CCU. Left Ventricle Normal LV size. Left ventricular systolic function is normal. The estimated ejection fraction is 60 %. Stage 1 diastolic dysfunction. No regional wall motion abnormalities noted. Right Ventricle Normal RV size. Normal systolic function. Atria The left atrium is mildly enlarged. Normal right atrium. Mitral Valve Normal mitral valve. Tricuspid Valve Normal tricuspid valve. Aortic Valve Trisinus/trileaflet aortic valve. Mild focal aortic valve calcification. Pulmonic Valve Normal pulmonic valve. Great Vessels Normal aortic root. The pulmonary artery is normal size. Normal inferior vena cava. Pericardium/Pleural No pericardial effusion. MMode/2D Measurements & Calculations LVIDd: 5.1 cm IVSd: 0.92 cm Ao root diam: 3.2 cm LVIDs: 3.3 cm LVPWd: 1.0 cm RVDd: 3.0 cm FS: 36.1 % LAV(MOD-bp): 83.8 ml LA A4 area: 24.6 cm2 LA dimension(2D): 4.0 cm LAV(MOD-bp) Indexed: 42.7 ml/m2 LAV(MOD-sp2): 79.3 ml LAV(MOD-sp4): 85.4 ml RA A4 area: 15.3 cm2 Time Measurements MV dec time: 0.28 sec Doppler Measurements & Calculations MV E max felton: 106.9 cm/sec Lat Peak E' Felton: 7.3 cm/sec Med Peak E' Felton: 8.9 cm/sec MV A max felton: 119.0 cm/sec E/E' lat: 14.7 E/E' med: 12.0 MV E/A: 0.90 Ao V2 max: 186.6 cm/sec LV V1 max: 104.6 cm/sec PA V2 max: 105.5 cm/sec Ao max P.9 mmHg LV V1 max P.4 mmHg Ao V2 mean: 130.9 cm/sec LV V1 mean P.7 mmHg Ao mean P.4 mmHg LV V1 mean: 78.9 cm/sec Ao V2 VTI: 42.0 cm LV V1 VTI: 27.4 cm Interpretation Summary Normal LV size. Left ventricular systolic function is normal. The estimated ejection fraction is 60 %. Stage 1 diastolic dysfunction. The left atrium is mildly enlarged. Mild focal aortic valve calcification. Ordering Physician: Natasha Rodriguez Referring Physician: Pantera Pizano Performed By: Josselyn Knigth, JUS, RVT
[2018-08-30] MEDS: cloNIDine HCl 0.1 MG Tablet 0.3 MG PO (21:34)
[2018-08-30] MEDS: Atorvastatin Calcium 80 MG Tablet PO (21:34)
[2018-08-31] VITALS (40 sets, daily range): BP systolic 94–148; BP diastolic 33–108; PULSE 42–79; RESP 11–25; TEMP 36.6–36.8; O2SAT 91–98; BMI 43.9
[2018-08-31 04:25] LABS: Mean Corp Hgb Conc 33.3 g/gl (32-36); Mean Corpuscular Hgb 31.6 pg (27.0-32.0); Mean Corpuscular Volume 94.9 fL (81-99); Mean Platelet Vol. 11.4 fl (6.2-12.0); Platelet Count 125 K/mm3 (150-450); RBC Distribution Width CV 14.3 % (11.6-14.6); RBC Distribution Width SD 47.4 fl (35.1-43.9); Red Blood Count 4.11 M/mm3 (4.2-5.4); White Blood Count 5.6 K/mm3 (4.4-11.0)
[2018-08-31 04:30] LABS: International Normalized Ratio 1.1; Partial Thromboplast Time 31.4 Seconds (24.1-36.2); Prothrombin Time (Protime)PT. 13.8 SECONDS (11.7-14.9); Scan Indicated on CBC? Y/N NO
[2018-08-31 04:55] LABS: Anion Gap 10 (5-15); BUN 20 mg/dL (7-18); BUN/Creat Ratio 20.6 RATIO (10-20); Calcium,Total 7.9 mg/dL (8.5-10.1); Chloride 109 mmol/L (98-107); Creatinine, Serum 0.97 mg/dL (0.55-1.02); EST Glomerular Filtration Rate 61 mL/min (>60); Est Glom Filt Rate - Afr Amer 74 mL/min (>60); Estimated Creatinine Clearance 40.98 ml/min; Glucose 126 mg/dL (74-106); Potassium 4.1 mmol/L (3.5-5.1); Sodium Level 141 mmol/L (136-145)
--- NOTE | 2018-08-31 05:55 | EKG12_ITS ---
Test Reason : AM EKG Blood Pressure : / mmHG Vent. Rate : 051 BPM Atrial Rate : 051 BPM P-R Int : 184 ms QRS Dur : 090 ms QT Int : 486 ms P-R-T Axes : 083 -16 -12 degrees QTc Int : 447 ms Sinus bradycardia Cannot rule out Anterior infarct , age undetermined Abnormal ECG When compared with ECG of 29-AUG-2018 05:38, MANUAL COMPARISON REQUIRED, DATA IS UNCONFIRMED Confirmed by JENA HENDRICKSON, MELODIE ([id number]), publishing editor MILTON CALLEJAS ([id number]) on 09/02/2018 3:55:22 PM Referred By: Pantera Pizano Confirmed By:MELODIE BELLA MD
[2018-08-31] MEDS: Clopidogrel Bisulfate 75 MG Tablet PO (06:05)
[2018-08-31] MEDS: Lisinopril 20 MG Tablet PO (06:05)
[2018-08-31] MEDS: Isosorbide Mononitrate 30 MG Tablet PO (06:05)
[2018-08-31] MEDS: amLODIPine 10 MG Tablet PO (06:05)
[2018-08-31] MEDS: Aspirin 325 MG Tablet PO (06:05)
--- NOTE | 2018-08-31 08:32 | PCM.PN.CARD ---
Subjectve: Patient seen and evaluated. Appears to be doing better. Underwent cardiac catheterization this morning Objective: Vital Signs Temp Pulse Resp BP Pulse Ox 98.0 F 51 L 16 112/59 L 96 08/31/18 06:02 08/31/18 06:02 08/31/18 06:02 08/31/18 06:02 08/31/18 06:02 Oxygen Flow Rate (L/min) 2 Oxygen Delivery Method Room Air Weight: 225 lb 8.526 oz Body Mass Index (BMI) 44.0 Intake and Output for Last 24 Hours 08/29/18 08/30/18 08/31/18 23:59 23:59 23:59 Intake Total 525 / 525 1175 / 1175 Balance 525 / 525 1175 / 1175 General: Awake, Alert, Oriented x 3 HEENT: PERRL, EOMI, Sclera Non Icteric Neck: Supple, Good ROM, No Lymph Node Enlargement Lungs: Clear to auscultation Cardiovascular: Regular Rhythm, Normal S1, Normal S2, No Murmurs, No Rubs, No Gallops Vascular: No Carotid Bruits, Normal Femoral Pulses, Normal Radial Pulses, Normal Dorsalis Pedal Pulse, Normal Posterior Tibial Pulses Abdomen: Bowel Sounds Present, Soft, Non Tender, No HSM, No Organomegaly Extremities: No Cyanosis, No Clubbing, No edema Lymphatic: No Lymph Node Enlargement Neurological: No Focal Motor or Sensory Deficit 08/30/18 08:54: WBC 4.5, RBC 4.81, Hgb 15.1 H, Hct 44.7, MCV 92.9, MCH 31.4, MCHC 33.8, RDW 14.3, RDW Differential 48.1 H, Plt Count 151, MPV 10.5 08/30/18 08:54: Hemoglobin A1c 6.9 H 08/30/18 08:54: Sodium 137, Potassium 4.2, Chloride 106, Carbon Dioxide 24.0, Anion Gap 7, BUN 18, Creatinine 0.86, Est GFR (MDRD) Af Amer 85, Est GFR (MDRD) Non-Af 70, BUN/Creatinine Ratio 20.9 H, Glucose 111 H, Calcium 8.4 L, Magnesium 2.2 08/31/18 03:54: WBC 5.6, RBC 4.11 L, Hgb 13.0, Hct 39.0, MCV 94.9, MCH 31.6, MCHC 33.3, RDW 14.3, RDW Differential 47.4 H, Plt Count 125 L, MPV 11.4 08/31/18 03:54: PT 13.8, INR 1.1, APTT 31.4 08/31/18 03:54: Sodium 141, Potassium 4.1, Chloride 109 H, Carbon Dioxide 22.0, Anion Gap 10, BUN 20 H, Creatinine 0.97, Est GFR (MDRD) Af Amer 74, Est GFR (MDRD) Non-Af 61, BUN/Creatinine Ratio 20.6 H, Glucose 126 H, Calcium 7.9 L Rhythm: EKG: ECHO: Stress Test: Cardiac Cath: PCI: CT Surgery: Holter monitor: EPS: PPM: CXR: Chest CT Scan: Medical Necessity - Tobacco Use Smoking Status: Current every day smoker Tobacco Use: Cigarettes Assessment/Plan 1. Non-ST elevation myocardial infarction Patient presented with chest discomfort and a non-ST elevation myocardial infarction. Underwent cardiac catheterization which demonstrated the following: Normal left main coronary artery. Left anterior descending artery with mid 75% stenosis. Left circumflex artery with mid 85% stenosis and a codominant vessel. First obtuse marginal branch with an ostial 75% stenosis. Codominant right coronary artery with a 60-70% stenosis. Left ventricle with low normal ejection fraction. Based on the above angiographic findings the patient would be considered for multivessel angioplasty. 2. Hypertension Continue current medical therapy Thank you for allowing me to participate in the care of your patient. Please don't hesitate to call if any issues arise
--- NOTE | 2018-08-31 08:35 | PN.CARD_ITS ---
Subjectve: Patient seen and evaluated. Appears to be doing better. Underwent cardiac catheterization this morning Objective: Vital Signs Temp Pulse Resp BP Pulse Ox 98.0 F 51 L 16 112/59 L 96 08/31/18 06:02 08/31/18 06:02 08/31/18 06:02 08/31/18 06:02 08/31/18 06:02 Oxygen Flow Rate (L/min) 2 Oxygen Delivery Method Room Air Weight: 225 lb 8.526 oz Body Mass Index (BMI) 44.0 Intake and Output for Last 24 Hours 08/29/18 08/30/18 08/31/18 23:59 23:59 23:59 Intake Total 525 / 525 1175 / 1175 Balance 525 / 525 1175 / 1175 General: Awake, Alert, Oriented x 3 HEENT: PERRL, EOMI, Sclera Non Icteric Neck: Supple, Good ROM, No Lymph Node Enlargement Lungs: Clear to auscultation Cardiovascular: Regular Rhythm, Normal S1, Normal S2, No Murmurs, No Rubs, No Gallops Vascular: No Carotid Bruits, Normal Femoral Pulses, Normal Radial Pulses, Normal Dorsalis Pedal Pulse, Normal Posterior Tibial Pulses Abdomen: Bowel Sounds Present, Soft, Non Tender, No HSM, No Organomegaly Extremities: No Cyanosis, No Clubbing, No edema Lymphatic: No Lymph Node Enlargement Neurological: No Focal Motor or Sensory Deficit 08/30/18 08:54: WBC 4.5, RBC 4.81, Hgb 15.1 H, Hct 44.7, MCV 92.9, MCH 31.4, MCHC 33.8, RDW 14.3, RDW Differential 48.1 H, Plt Count 151, MPV 10.5 08/30/18 08:54: Hemoglobin A1c 6.9 H 08/30/18 08:54: Sodium 137, Potassium 4.2, Chloride 106, Carbon Dioxide 24.0, Anion Gap 7, BUN 18, Creatinine 0.86, Est GFR (MDRD) Af Amer 85, Est GFR (MDRD) Non-Af 70, BUN/Creatinine Ratio 20.9 H, Glucose 111 H, Calcium 8.4 L, Magnesium 2.2 08/31/18 03:54: WBC 5.6, RBC 4.11 L, Hgb 13.0, Hct 39.0, MCV 94.9, MCH 31.6, MCHC 33.3, RDW 14.3, RDW Differential 47.4 H, Plt Count 125 L, MPV 11.4 08/31/18 03:54: PT 13.8, INR 1.1, APTT 31.4 08/31/18 03:54: Sodium 141, Potassium 4.1, Chloride 109 H, Carbon Dioxide 22.0, Anion Gap 10, BUN 20 H, Creatinine 0.97, Est GFR (MDRD) Af Amer 74, Est GFR (MDRD) Non-Af 61, BUN/Creatinine Ratio 20.6 H, Glucose 126 H, Calcium 7.9 L Rhythm: EKG: ECHO: Stress Test: Cardiac Cath: PCI: CT Surgery: Holter monitor: EPS: PPM: CXR: Chest CT Scan: Medical Necessity - Tobacco Use Smoking Status: Current every day smoker Tobacco Use: Cigarettes Assessment/Plan 1. Non-ST elevation myocardial infarction * Patient presented with chest discomfort and a non-ST elevation myocardial infarction. Underwent cardiac catheterization which demonstrated the following: Normal left main coronary artery. Left anterior descending artery with mid 75% stenosis. Left circumflex artery with mid 85% stenosis and a codominant vessel. First obtuse marginal branch with an ostial 75% stenosis. Codominant right coronary artery with a 60-70% stenosis. Left ventricle with low normal ejection fraction. Based on the above angiographic findings the patient would be considered for multivessel angioplasty. 2. Hypertension * Continue current medical therapy * * Thank you for allowing me to participate in the care of your patient. Please don't hesitate to call if any issues arise
--- NOTE | 2018-08-31 08:42 | CL.D_ITS ---
Patient Name: ESPERANZA CHURCH Study Date: 08/31/2018 Performing: Giovani Alford MD Ht: 59.84 inches 152 cm : 1950 Wt: 224.87 lbs 102 kg Age: 68 Gender: female BSA: 1.96 PROCEDURE(S) PERFORMED [id number]/LV CLINICAL PROFILE AND INDICATIONS Indications: ACS <= 24 hrs Heart Failure: None Stress/Imaging Stress/Image Study Performed: No CONCLUSIONS Type vessel coronary artery disease with severe stenosis of the mid left circumflex artery, moderatel y severe disease noted of the mid left anterior descending artery, ostial first obtuse marginal branc h, and moderate proximal right coronary artery stenosis in a codominant vessel. RECOMMENDATIONS Referred for immediate PCI DESCRIPTION OF PROCEDURE The patient arrived to the procedure lab. The risks and benefits of the procedure as well as a full d escription of our services here and current unavailability of surgical backup were fully explained to the patient and/or their significant other prior to the catheterization. The Timeout was completed, verifying the correct patient and procedure. The patient's procedural site was prepped and draped in the usual fashion. Local anesthetic was given subcutaneously to right groin region with Lidocaine 2%. Using a modified Seldinger technique, arterial access was obtained via the right femoral artery, a 5 Fr sheath was inserted. Left Coronary Artery selective angiography was performed in multiple views u sing a 5 Fr. JL4 catheter. Right Coronary Artery selective angiography was then performed in multiple views using a 5 Fr. 3DRC (Silvano) catheter. Left Ventriculography was performed in ROOT projection using a 5 Fr. Pigtail catheter. LV to AO pullback pressures were then recorded. CORONARY ANGIOGRAPHY DOMINANCE: Co- Dominant LEFT HEART ASSESSMENT Left Ventricular Ejection Fraction: by LV Gram 55 % Normal LV wall motion Normal Left Ventricular systolic function LEFT MAIN: Mild calcification LEFT ANTERIOR DECENDING ARTERY: PROX LAD: Previously placed stent is patent MID LAD: 75 % Stenosis CIRCUMFLEX ARTERY: Previously placed stent is patent MID CIRC: 85 % Stenosis OM 1: Ostial - 75 % Stenosis RIGHT CORONARY ARTERY: PROX RCA: 65 % Stenosis COMPLICATIONS PROCEDURE MEDICATIONS Versed 1 mg IV Fentanyl 50 mcg IV Fentanyl 25 mcg IV Oxygen: 2 L/min via nasal cannula Heparin 6000 unit(s) IV 08/31/2018 08:39:17 IV Bolus: .9 NaCl ml total 08/31/2018 08:40:09 SUMMARY OF HEMODYNAMIC DATA Time AIR REST ECG 08:02:04 AO 130/63 (87) SA 08:17:28 LV 127/-2, 15 08:25:31 LV 127/0, 18 08:25:37 LV 121/9, 15 08:26:20 LVp 118/11, 18 08:26:24 AOp 117/-29 (24) 08:26:29 Signed By Giovani Alford MD On 08/31/2018 08:41:31 Giovani Alford MD
--- NOTE | 2018-08-31 09:43 | CL.I_ITS ---
Patient Name: ESPERANZA CHURCH Study Date: 08/31/2018 Performing: Joe Oates MD Ht: 59.84 inches 152 cm : 1950 Wt: 224.87 lbs 102 kg Age: 68 Gender: female BSA: 1.96 PROCEDURE(S) PERFORMED [id number] W OR WO PTCA, SINGLE CORONARY ARTERY [id number], EACH ADD'L CORONARY ART, SAME MAJOR CLINICAL PROFILE AND CO-MORBIDITIES Indications: ACS <= 24 hrs, ACS > 24 hrs, New Onset Angina <= 2 months, Stable Known CAD Heart Failure: None Stress/Imaging Stress/Image Study Performed: No Stress/Image Study Performed: No Angina Classification Anginal Classification w/in 2 Weeks: CCS IV CAD Presentations: Non-STEMI. Symptom onset Date/Time: 08/29/2018 Time Not Available Unstable ang minoo. Comorbidities/Risk Factors: Hypertension Dyslipidemia Prior PCI Current/Recent Smoker (< 1year) CONCLUSIONS Successful PTCA/RUTHY of mid LCX utilizing a 2.5 x 20 Promus Synergy; 85%-->0%, no dissection. Successful PCI with PTCA to the ostial OM#1 with a 2.0 x 8 Balloon; 85%-->10%, no dissection. Successful PCI with PTCA to the ostial OM#1 with a 1.5 x 10 Balloon; 85%-->10%, no dissection. RECOMMENDATIONS Highly recommend quitting all tobacco products Follow up with primary manager social Risk factor modification ASA Indefinitley Plavix for at least 12 months Routine post interventional care Refer for Outpatient Cardiac Rehab Manual sheath removal per protocol Follow up with Dr. Alford Stress test in 3 weeks to eval LAD and RCA distribution. If PCI is needed would recommend long 55 cm sheath. Unable to Mynx groin due to severe diffuse PVD. DESCRIPTION OF PROCEDURE The patient arrived to the procedure lab. The risks and benefits of the procedure as well as a full d escription of our services here and current unavailability of surgical backup were fully explained to the patient and/or their significant other prior to the catheterization. The Timeout was completed, verifying the correct patient and procedure. The patient's procedural site was prepped and draped in the usual fashion. Local anesthetic was given subcutaneously to right groin region with Lidocaine 2% Using a modified Seldinger technique,arterial access was obtained via the right femoral artery, a 5Fr sheath was inserted. Left Coronary Artery selective angiography was performed in multiple views usin g a 5 Fr. JL4 catheter. Right Coronary Artery selective angiography was then performed in multiple vi ews using a 5 Fr. 3DRC (Silvano) catheter. Left Ventriculography was performed in ROOT projection usi ng a 5 Fr. Pigtail catheter. LV to AO pullback pressures were then recorded.The images were reviewed and options discussed. A decision was then made to proceed with an Intervention, IVUS o r other adjunct procedure. Arterial sheath was exchanged for a 6 Fr Sheath. EBU 3.75 Guide catheter was inserted and engaged into the LCA. BMW Guide wire was advanced to the Circumflex. Angiogram performed pre balloon dilatat ion. Emerge 2.00x12 Balloon catheter was inserted. PTCA balloon inflated at 6 atms for 6 secs. PTCA b alloon inflated at 6 atms for 17 secs. PTCA balloon inflated at 6 atms for 6 secs. PTCA balloon infla viral at 6 atms for 7 secs. Angiogram performed post balloon dilatation. Synergy 2.50x20 Drug Eluting s tent was inserted. Angiogram performed post stent deployment. BMW Guide wire was inserted as a stefany wire OM #2 Emerge 2.00x8 Balloon catheter was inserted. Angiogram performed pre balloon dilatation. P TCA balloon inflated at 6 atms for 31 secs. PTCA balloon inflated at 6 atms for 8 secs. Angiogram per formed post balloon dilatation. BMW Guide wire was repositioned to the 1st OM Emerge 2.00x8 Balloon c atheter was inserted. Angiogram performed pre balloon dilatation. Emerge push 1.50x8 Balloon catheter was inserted. Euphora SC 1.5x10 Balloon catheter was inserted. PTCA balloon inflated at 8 atms for 14 secs. Angiogram performed post balloon dilatation. Contrast was injected through th e sheath and the Right Iliac and Femoral artery were assessed for possible closure device. The arter ial sheath was sutured in place and capped INTERVENTION INFORMATION LESION SITE: Circumflex (Mid) Lesion Complexity: High/C, lesion at bifurcation: No, thrombus present: No, lesion length: 20 mm, cul prit lesion: Yes Pre Stenosis: 85 % Pre intervention MOHINI flow: 2 PROCEDURE: Drug Eluting Stent with pre dilatation. Post Stenosis: 0 % Post intervention MOHINI flow: 3 Lesion Devices: Duran .014 BMW Shelby Straight 190cm [place] Sci EMERGE MR 2.00x12 BALLOON [place] Sci Synergy MR RUTHY 2.50x20 LESION SITE: 2nd OM (Ostial) Lesion Complexity: Non-High/Non-C, lesion at bifurcation: Yes, thrombus present: No, lesion length: 8 mm, culprit lesion: No Pre Stenosis: 75 % Pre intervention MOHINI flow: 2 PROCEDURE: Balloon Angioplasty Post Stenosis: 10 % Post intervention MOHINI flow: 3 Lesion Devices: Duran .014 BMW Shelby Straight 190cm [place] Sci EMERGE MR 2.00x08 BALLOON LESION SITE: 1st OM (Ostial) Lesion Complexity: Non-High/Non-C, lesion at bifurcation: Yes, thrombus present: No, lesion length: 8 mm, culprit lesion: No Pre Stenosis: 85 % Pre intervention MOHINI flow: 3 PROCEDURE: Balloon Angioplasty 10 % Post intervention MOHINI flow: 3 Lesion Devices: Duran .014 BMW Shelby Straight 190cm [place] Sci EMERGE MR 2.00x08 BALLOON [place] [employer] EMERGE PUSH MR 1.50x08 BALLOON Medtronic SC EUPHORA RX 1.5x10 BALLOON COMPLICATIONS No Complications PROCEDURE MEDICATIONS Versed 1 mg IV Fentanyl 50 mcg IV Fentanyl 25 mcg IV Fentanyl 25 mcg IV Fentanyl 25 mcg IV Fentanyl 25 mcg IV Oxygen: 2 L/min via nasal cannula Heparin 6000 unit(s) IV 08/31/2018 08:39:17 Nitro 200 mcg IC 08/31/2018 08:41:45 Nitro 200 mcg IC 08/31/2018 08:41:45 IV Bolus: .9 NaCl 700ml total 08/31/2018 08:40:09 SUMMARY OF HEMODYNAMIC DATA Time AIR REST ECG 08:02:04 AO 130/63 (87) SA 08:17:28 LV 127/-2, 15 08:25:31 LV 127/0, 18 08:25:37 LV 121/9, 15 08:26:20 LVp 118/11, 18 08:26:24 AOp 117/-29 (24) 08:26:29 Signed By Joe Oates MD On 08/31/2018 09:43:09 Joe Oates MD
[2018-08-31] MEDS: 0.9% Normal Saline 1,000 ML 150 ML IV (10:00)
[2018-08-31] MEDS: Morphine 2 MG/ML Syringe IV (10:00)
--- NOTE | 2018-08-31 10:00 | NURSING ---
Pt arrived to ICU writhing in the bed in pain from her left hip hurting. Pramod, optical laboratory technician staff reports pt was painful during whole procedure. Reports pt received Fentanyl for a total of 150mcg. IV noted to appear infiltrated. New IV placed and Morphine 2mg IV given. Dr Schulz on floor and to pt room to assess for pain relief interventions.
--- NOTE | 2018-08-31 10:03 | PN_ITS ---
Patient Problems: Active and Suspected Problems NSTEMI (non-ST elevated myocardial infarction) (Acute) Chest pain (Acute) Subjective: All events of the past 24 hours of been reviewed. Patient is a 68-year-old female with a history of coronary artery disease and stents who continues to smoke. She was admitted to the hospital with NSTEMI and went for cardiac catheterization today. Cardiac catheterization revealed a 55% ejection fraction with normal left ventricular wall motion. There was a 75% stenosis in the mid LAD, 85% stenosis of the mid circumflex artery and 75% stenosis of the OM1 branch. The right coronary artery had a 65% stenosis. She underwent cardiac intervention by Dr. Joe Oates had successful PTCA/RUTHY of the mid left circumflex lesion, PCI with PTCA to the ostial OM #1 branch and PTCA to the second OM lesion. The RCA was not stented. Dr. Oates recommends a stress test in 3 weeks to evaluate LAD and RCA distribution. Dr. Oates also mentions she has severe diffuse peripheral vascular disease. She is afebrile and vital signs are stable. She is 94-96% saturated on room air today. All lab was personally reviewed. CBC is remarkable for a low platelet count at 125,000 but is otherwise unremarkable. Electrolytes are within normal limits and the BUN is 20 with a creatinine of 0.97 today, up from 0.75 at admission. - Physical Exam Vital Signs Temp Pulse Resp BP Pulse Ox 98.0 F 51 L 16 112/59 L 96 08/31/18 06:02 08/31/18 06:02 08/31/18 06:02 08/31/18 06:02 08/31/18 06:02 Oxygen Flow Rate (L/min) 2 Oxygen Delivery Method Room Air Weight: 225 lb 8.526 oz Body Mass Index (BMI) 44.0 Intake and Output for Last 24 Hours 08/29/18 08/30/18 08/31/18 23:59 23:59 23:59 Intake Total 525 / 525 1175 / 1175 Balance 525 / 525 1175 / 1175 Laboratory Tests Past 24 Hrs 08/31/18 08/31/18 08/31/18 03:54 03:54 03:54 WBC 5.6 RBC 4.11 L Hgb 13.0 Hct 39.0 MCV 94.9 MCH 31.6 MCHC 33.3 RDW 14.3 RDW Differential 47.4 H Plt Count 125 L MPV 11.4 PT 13.8 INR 1.1 APTT 31.4 Sodium 141 Potassium 4.1 Chloride 109 H Carbon Dioxide 22.0 Anion Gap 10 BUN 20 H Creatinine 0.97 Estim Creat Clear Calc 40.98 Est GFR (MDRD) Af Amer 74 Est GFR (MDRD) Non-Af 61 BUN/Creatinine Ratio 20.6 H Glucose 126 H Calcium 7.9 L Medical Necessity - Tobacco Use Smoking Status: Current every day smoker Tobacco Use: Cigarettes Assessment/Plan All Active Problems History of coronary artery stent placement (Acute 08/31/18) Atherosclerosis of coronary artery of [place] heart with angina pectoris (Acute) NSTEMI (non-ST elevated myocardial infarction) (Acute) Chest pain (Acute)
[2018-08-31] MEDS: fentaNYL 100 MCG/2 ML Ampul 25 MCG IV ×3 (10:15→11:52)
[2018-08-31] MEDS: 0.9% NaCl Peripheral Flush Adult/Peds IV ×2 (10:18→10:38)
[2018-08-31 11:45] LABS: ACT Activated Clotting Time 136 sec (74-137)
--- NOTE | 2018-08-31 11:45 | CRPHASE1 ---
Patient Data/Charges Surface Grinder Tender:: Joe Oates Refer Phase II:: Yes Phase II Referral:: [facility] Start Phase II:: After follow up visit with Cardiology Phase I Charge:: Level I - Education Risk Factors/Lifestyle Smoking Status: Current every day smoker Hx Hypertension: Yes Hx Metabolic Disorders: Yes Hx Dyslipidemia: Yes Hx Obesity: Yes Height: 5 ft Weight:: 225 lb BMI: 43.9 Post-Menopausal: Yes Stress: Long-standing Risk Factor for Sedentary Lifestyle: Highest Risk Family History: Family History (Last Updated 08/28/18 @ 22:32 by Pantera Pizano MD) Brother Cancer Past Cardiac Illness: Coronary Artery Disease, Previous PCI w/Stent Laboratory Values: Cardiac Rehab Phase I Labs Hemoglobin A1c 6.9 % (4.2-6.3) H 08/30/18 08:54 Triglycerides 156 mg/dL (-199) 08/29/18 05:30 Cholesterol 85 mg/dL (200) 08/29/18 05:30 LDL Cholesterol 32 mg/dL (0-130) 08/29/18 05:30 HDL Cholesterol 22 mg/dL (40-) L 08/29/18 05:30 Phase I Education Given On:: [place], Nutrition, Antiplatelet medication, CHF, Smoking cessation Issues Affecting Care:: Physical Knowledge of Condition:: Yes Learning Preferences: Verbal, Written, Audio/Visual, Demonstration Medical/Surgical History [place]:: Yes - NSTEMI CAD:: Yes Hypertension:: Yes Dyslipidemia:: Yes PTCA:: Yes - years ago Ambulation Notes:: uses a walker, post CVA
--- NOTE | 2018-08-31 11:49 | CRPHASE1_ITS ---
Patient Data/Charges Medical Social Worker:: Joe Oates Refer Phase II:: Yes Phase II Referral:: [facility] Start Phase II:: After follow up visit with Cardiology Phase I Charge:: Level I - Education Risk Factors/Lifestyle Smoking Status: Current every day smoker Hx Hypertension: Yes Hx Metabolic Disorders: Yes Hx Dyslipidemia: Yes Hx Obesity: Yes Height: 5 ft Weight:: 225 lb BMI: 43.9 Post-Menopausal: Yes Stress: Long-standing Risk Factor for Sedentary Lifestyle: Highest Risk Family History: Family History (Last Updated 08/28/18 @ 22:32 by Pantera Pizano MD) Brother Cancer Past Cardiac Illness: Coronary Artery Disease, Previous PCI w/Stent Laboratory Values: Cardiac Rehab Phase I Labs Hemoglobin A1c 6.9 % (4.2-6.3) H 08/30/18 08:54 Triglycerides 156 mg/dL (-199) 08/29/18 05:30 Cholesterol 85 mg/dL (200) 08/29/18 05:30 LDL Cholesterol 32 mg/dL (0-130) 08/29/18 05:30 HDL Cholesterol 22 mg/dL (40-) L 08/29/18 05:30 Phase I Education Given On:: [place], Nutrition, Antiplatelet medication, CHF, Smoking cessation Issues Affecting Care:: Physical Knowledge of Condition:: Yes Learning Preferences: Verbal, Written, Audio/Visual, Demonstration Medical/Surgical History [place]:: Yes - NSTEMI CAD:: Yes Hypertension:: Yes Dyslipidemia:: Yes PTCA:: Yes - years ago Ambulation Notes:: uses a walker, post CVA
--- NOTE | 2018-08-31 11:49 | CRPH1.INSTRU ---
General Education CAD and cardiac anatomy and function:: Patient communicates acknowledgment, Needs reinforcement Explanation of diagnoses and procedures:: Patient communicates acknowledgment, Needs reinforcement Sign/Symptoms of [place]:: Patient communicates acknowledgment, Needs reinforcement Antiplatelet therapy: Patient communicates acknowledgment, Needs reinforcement Proper use of NTG-SL: Patient communicates acknowledgment, Needs reinforcement Emergency procedures and activation of EMS: Patient communicates acknowledgment, Needs reinforcement Compliance of all prescribed medications: Patient communicates acknowledgment, Needs reinforcement Smoking Patient Nicotine/Smoking Risk Factors Are:: Cigarettes Recommendations Include:: Smoking cessation strategies/Smoking packet, Participation in a smoking cessation program Nicotine/Smoking Response Code:: Patient communicates acknowledgment, Needs reinforcement Dyslipidemia Patient Dyslipidemia Risk Factors Are:: Total Cholesterol, Triglycerides, HDL, LDL Recommendations Include:: Lipid profile provided, Reviewed NCEP/ATP guidelines, Therapeutic Lifestyle Change dietary guidelines Dyslipidemia Response Code:: Patient communicates acknowledgment, Needs reinforcement Overweight/Obesity Patient Overweight/Obesity Risk Factors Are:: Obesity - > or = 30 Recommendations Include:: Weight loss of 5-10%, Reduced calorie diet, Exercise 5-7 times/week Overweight/Obesity:: Patient communicates acknowledgment, Needs reinforcement Hypertension Recommendations Include:: Maintain BP <130/85, DASH dietary guidelines, Decrease/maintain normal body weight, Moderation of ETOH Hypertension:: Patient communicates acknowledgment, Needs reinforcement Heart Disease Patient Heart Disease Risk Factors Are:: Previous cardiac event Recommendations Include:: Educated family members of their risk, Educated family members of importance of prevention of heart disease Heart Disease Response Code:: Patient communicates acknowledgment, Needs reinforcement Diabetes Patient Diabetes Risk Factors Are:: No documented hx of diabetes Diabetes:: Not instructed Metabolic Syndrome Patient Metabolic Syndrome Risk Factors Are [3 of 5]:: Waist circumference > 35 [female] or 40 [male], High triglyceride >150, Hypertension, Low HDL <40 [male] or < 50 [female] Recommendations Include:: Reinforce compliance to risk factor modifications, Encouraged follow-up with Primary Care Physician Metabolic Syndrome Response Code:: Patient communicates acknowledgment, Needs reinforcement Sedentary Patient Sedentary Risk Factors Are:: Lack of regular exercise Recommendations Include:: Aerobic exercise 5-7 times/week for 20-30 minutes continuously, Benefits of regular exercise, Discussed home walking program, Monitored Outpatient Cardiac Rehab Sedentary Response Code:: Patient communicates acknowledgment, Needs reinforcement Stress Recommendations Include:: Identification of stressors, and assessment of coping skills, Stress management techniques Stress Response Code:: Patient communicates acknowledgment, Needs reinforcement
[2018-08-31 11:50] LABS: ACT Activated Clotting Time 175 sec (74-137)
--- NOTE | 2018-08-31 11:52 | CRPH1.INST_ITS ---
General Education CAD and cardiac anatomy and function:: Patient communicates acknowledgment, Needs reinforcement Explanation of diagnoses and procedures:: Patient communicates acknowledgment, Needs reinforcement Sign/Symptoms of [place]:: Patient communicates acknowledgment, Needs reinforcement Antiplatelet therapy: Patient communicates acknowledgment, Needs reinforcement Proper use of NTG-SL: Patient communicates acknowledgment, Needs reinforcement Emergency procedures and activation of EMS: Patient communicates acknowledgment, Needs reinforcement Compliance of all prescribed medications: Patient communicates acknowledgment, Needs reinforcement Smoking Patient Nicotine/Smoking Risk Factors Are:: Cigarettes Recommendations Include:: Smoking cessation strategies/Smoking packet, Participation in a smoking cessation program Nicotine/Smoking Response Code:: Patient communicates acknowledgment, Needs re inforcement Dyslipidemia Patient Dyslipidemia Risk Factors Are:: Total Cholesterol, Triglycerides, HDL, LDL Recommendations Include:: Lipid profile provided, Reviewed NCEP/ATP guidelines, Therapeutic Lifestyle Change dietary guidelines Dyslipidemia Response Code:: Patient communicates acknowledgment, Needs re inforcement Overweight/Obesity Patient Overweight/Obesity Risk Factors Are:: Obesity - > or = 30 Recommendations Include:: Weight loss of 5-10%, Reduced calorie diet, Exercise 5-7 times/week Overweight/Obesity:: Patient communicates acknowledgment, Needs reinforcement Hypertension Recommendations Include:: Maintain BP <130/85, DASH dietary guidelines, Decrease/maintain normal body weight, Moderation of ETOH Hypertension:: Patient communicates acknowledgment, Needs reinforcement Heart Disease Patient Heart Disease Risk Factors Are:: Previous cardiac event Recommendations Include:: Educated family members of their risk, Educated family members of importance of prevention of heart disease Heart Disease Response Code:: Patient communicates acknowledgment, Needs reinforcement Diabetes Patient Diabetes Risk Factors Are:: No documented hx of diabetes Diabetes:: Not instructed Metabolic Syndrome Patient Metabolic Syndrome Risk Factors Are [3 of 5]:: Waist circumference > 35 [female] or 40 [male], High triglyceride >150, Hypertension, Low HDL <40 [male] or < 50 [female] Recommendations Include:: Reinforce compliance to risk factor modifications, Encouraged follow-up with Primary Care Physician Metabolic Syndrome Response Code:: Patient communicates acknowledgment, Needs reinforcement Sedentary Patient Sedentary Risk Factors Are:: Lack of regular exercise Recommendations Include:: Aerobic exercise 5-7 times/week for 20-30 minutes continuously, Benefits of regular exercise, Discussed home walking program, Monitored Outpatient Cardiac Rehab Sedentary Response Code:: Patient communicates acknowledgment, Needs reinforcement Stress Recommendations Include:: Identification of stressors, and assessment of coping skills, Stress management techniques Stress Response Code:: Patient communicates acknowledgment, Needs reinforcement
--- NOTE | 2018-08-31 15:18 | PN_ITS ---
Patient Problems: Active and Suspected Problems NSTEMI (non-ST elevated myocardial infarction) (Acute) Chest pain (Acute) Subjective: Pt seen post cath post stent/balloon procedure. No CP, no SOB. No Tightness/heaviness/pressure. Pt c/o hip pain. She is otherwise resting comfortably. - Physical Exam General: Alert, Oriented x3, Cooperative HEENT: Atraumatic, PERRLA, EOMI, Normocephalic Neck: Supple, No JVD, Negative Carotid Bruits Lungs: Clear to auscultation, Normal air movement Cardiovascular: Regular rate, No murmurs Abdomen: Bowel Sounds Present, Soft, Non Tender Extremities: No edema, Capillary Refill Less than 3 Seconds Skin: No rashes, No breakdown Musculoskeletal: No Tenderness to Palpation of Joints or Extremities Neurological: Cranial nerves II-XII grossly intact Psych/Mental Status: Normal Affect, Appropriate, Alert and oriented to time, place, person, mood and affect Vital Signs Temp Pulse Resp BP Pulse Ox 98.1 F 64 19 H 118/69 98 08/31/18 12:00 08/31/18 14:30 08/31/18 14:00 08/31/18 14:30 08/31/18 14:00 Oxygen Flow Rate (L/min) 2 Oxygen Delivery Method Room Air Weight: 225 lb Body Mass Index (BMI) 44.0 Intake and Output for Last 24 Hours 08/29/18 08/30/18 08/31/18 23:59 23:59 23:59 Intake Total 525 / 525 1175 / 1175 379 / 379 Balance 525 / 525 1175 / 1175 379 / 379 Laboratory Tests Past 24 Hrs 08/31/18 08/31/18 08/31/18 03:54 03:54 03:54 WBC 5.6 RBC 4.11 L Hgb 13.0 Hct 39.0 MCV 94.9 MCH 31.6 MCHC 33.3 RDW 14.3 RDW Differential 47.4 H Plt Count 125 L MPV 11.4 PT 13.8 INR 1.1 APTT 31.4 Activated Clotting Time Sodium 141 Potassium 4.1 Chloride 109 H Carbon Dioxide 22.0 Anion Gap 10 BUN 20 H Creatinine 0.97 Estim Creat Clear Calc 40.98 Est GFR (MDRD) Af Amer 74 Est GFR (MDRD) Non-Af 61 BUN/Creatinine Ratio 20.6 H Glucose 126 H Calcium 7.9 L 08/31/18 08/31/18 09:25 11:34 WBC RBC Hgb Hct MCV MCH MCHC RDW RDW Differential Plt Count MPV PT INR APTT Activated Clotting Time 175 H 136 Sodium Potassium Chloride Carbon Dioxide Anion Gap BUN Creatinine Estim Creat Clear Calc Est GFR (MDRD) Af Amer Est GFR (MDRD) Non-Af BUN/Creatinine Ratio Glucose Calcium Medical Necessity - Tobacco Use Smoking Status: Current every day smoker Tobacco Use: Cigarettes Assessment/Plan All Active Problems History of coronary artery stent placement (Acute 08/31/18) Atherosclerosis of coronary artery of [place] heart with angina pectoris (Acute) NSTEMI (non-ST elevated myocardial infarction) (Acute) Chest pain (Acute) 1. Chest pain / NSTEMI / Hx CAD - s/p cath, PTCA/RUTHY LCX, PCI x2 with no stent. Will need stress test in 3 weeks. Cardiology following. Trop 0.094 max. TSH normal. Continue asa, statin, catapres, plavix, hctz, lopressor, lisinopril, imdur. 2. T2DM with morbid obesity - not on any medications at home. Should start metformin as o/p will need to wait at least 3 days. A1C 6.9. She should also stick to a cardiac and calorie controlled diet at discharge with the goal of both losing weight and decreasing her A1C. 3. Nicotine abuse - patch if desired. Needs cessation. Pt reluctant to quit, however given the severity of her cardiac disease this is very important. 4. HTN - Improved. 5. HLD - statin 6. UTI - completed 5 days bactrim - dc bactrim. DVT ppx: lovenox DC planning: Likely home tomorrow. This patient was seen by Dong Lee PA-C under the supervision of Doctor Lev andrade.
--- NOTE | 2018-08-31 18:35 | NURSING ---
Pt up s/p bedrest. Walked to and used BR and then assisted to chair. R groin w/ slight bruising but remains soft and free of drainage. Will continue to monitor.
[2018-08-31] MEDS: Atorvastatin Calcium 80 MG Tablet PO (21:19)
[2018-08-31] MEDS: cloNIDine HCl 0.1 MG Tablet PO (21:32)
[2018-09-01] VITALS (12 sets, daily range): BP systolic 108–150; BP diastolic 51–67; PULSE 46–83; RESP 14–20; TEMP 36.4–36.9; O2SAT 91–100
[2018-09-01 04:04] LABS: Hematocrit 41.5 % (37-47); Hemoglobin 13.8 g/dl (12.0-15.0); Mean Corp Hgb Conc 33.3 g/gl (32-36); Mean Corpuscular Hgb 30.9 pg (27.0-32.0); Mean Platelet Vol. 10.4 fl (6.2-12.0); Platelet Count 151 K/mm3 (150-450); RBC Distribution Width CV 14.1 % (11.6-14.6); Red Blood Count 4.46 M/mm3 (4.2-5.4); White Blood Count 5.3 K/mm3 (4.4-11.0)
[2018-09-01 04:09] LABS: Scan Indicated on CBC? Y/N NO
[2018-09-01 04:19] LABS: Anion Gap 9 (5-15); BUN 16 mg/dL (7-18); BUN/Creat Ratio 20.8 RATIO (10-20); Chloride 110 mmol/L (98-107); Creatinine, Serum 0.77 mg/dL (0.55-1.02); EST Glomerular Filtration Rate 80 mL/min (>60); Est Glom Filt Rate - Afr Amer 97 mL/min (>60); Estimated Creatinine Clearance 39.75 ml/min; Glucose 91 mg/dL (74-106); Potassium 4.1 mmol/L (3.5-5.1); Sodium Level 143 mmol/L (136-145)
--- NOTE | 2018-09-01 07:13 | PCM.PN.CARD ---
Subjectve: Patient seen and evaluated. Appears to be doing better this morning. No chest pain no groin pain Objective: Vital Signs Temp Pulse Resp BP Pulse Ox 98.4 F 60 14 128/61 H 98 09/01/18 04:00 09/01/18 06:00 09/01/18 06:00 09/01/18 06:00 09/01/18 06:00 Oxygen Flow Rate (L/min) 2 Oxygen Delivery Method Room Air Weight: 225 lb Body Mass Index (BMI) 44.0 Intake and Output for Last 24 Hours 08/30/18 08/31/18 09/01/18 23:59 23:59 23:59 Intake Total 1175 / 1175 1152 / 1152 Output Total 200 / 200 Balance 1175 / 1175 952 / 952 General: Awake, Alert, Oriented x 3 HEENT: PERRL, EOMI, Sclera Non Icteric Neck: Supple, Good ROM, No Lymph Node Enlargement Lungs: Clear to auscultation Cardiovascular: Regular Rhythm, Normal S1, Normal S2, No Murmurs, No Rubs, No Gallops Vascular: No Carotid Bruits, Normal Femoral Pulses, Normal Radial Pulses, Normal Dorsalis Pedal Pulse, Normal Posterior Tibial Pulses Abdomen: Bowel Sounds Present, Soft, Non Tender, No HSM, No Organomegaly Extremities: No Cyanosis, No Clubbing, No edema Neurological: No Focal Motor or Sensory Deficit Psych/Mental Status: Appropriate 09/01/18 03:50: WBC 5.3, RBC 4.46, Hgb 13.8, Hct 41.5, MCV 93.0, MCH 30.9, MCHC 33.3, RDW 14.1, RDW Differential 48.0 H, Plt Count 151, MPV 10.4 09/01/18 03:50: Sodium 143, Potassium 4.1, Chloride 110 H, Carbon Dioxide 24.0, Anion Gap 9, BUN 16, Creatinine 0.77, Est GFR (MDRD) Af Amer 97, Est GFR (MDRD) Non-Af 80, BUN/Creatinine Ratio 20.8 H, Glucose 91, Calcium 8.0 L Rhythm: EKG: ECHO: Stress Test: Cardiac Cath: PCI: CT Surgery: Holter monitor: EPS: PPM: CXR: Chest CT Scan: Medical Necessity - Tobacco Use Smoking Status: Current every day smoker Tobacco Use: Cigarettes Assessment/Plan 1. Non-ST elevation myocardial infarction Patient presented with chest discomfort and a non-ST elevation myocardial infarction. Underwent cardiac catheterization which demonstrated the following: Normal left main coronary artery. Left anterior descending artery with mid 75% stenosis. Left circumflex artery with mid 85% stenosis and a codominant vessel. First obtuse marginal branch with an ostial 75% stenosis. Codominant right coronary artery with a 60-70% stenosis. Left ventricle with low normal ejection fraction. Based on the above angiographic findings the patient underwent angioplasty and stenting of the mid circumflex artery with ballooning of the diagonal vessel. The hemo globin remained stable and creatinine remained stable. No EKG changes noted. The patient will be brought back electively for stenting of the left anterior descending artery by Dr. Oates. Would maintain the current medications for now. Patient would be arranged to follow-up in the interim with a physician travel assistant in the office prior to the next angioplasty and then eventual follow-up with me. 2. Hypertension Continue current medical therapy Stable from my standpoint for discharge Thank you for allowing me to participate in the care of your patient. Please don't hesitate to call if any issues arise
--- NOTE | 2018-09-01 07:16 | PN.CARD_ITS ---
Subjectve: Patient seen and evaluated. Appears to be doing better this morning. No chest pain no groin pain Objective: Vital Signs Temp Pulse Resp BP Pulse Ox 98.4 F 60 14 128/61 H 98 09/01/18 04:00 09/01/18 06:00 09/01/18 06:00 09/01/18 06:00 09/01/18 06:00 Oxygen Flow Rate (L/min) 2 Oxygen Delivery Method Room Air Weight: 225 lb Body Mass Index (BMI) 44.0 Intake and Output for Last 24 Hours 08/30/18 08/31/18 09/01/18 23:59 23:59 23:59 Intake Total 1175 / 1175 1152 / 1152 Output Total 200 / 200 Balance 1175 / 1175 952 / 952 General: Awake, Alert, Oriented x 3 HEENT: PERRL, EOMI, Sclera Non Icteric Neck: Supple, Good ROM, No Lymph Node Enlargement Lungs: Clear to auscultation Cardiovascular: Regular Rhythm, Normal S1, Normal S2, No Murmurs, No Rubs, No Gallops Vascular: No Carotid Bruits, Normal Femoral Pulses, Normal Radial Pulses, Normal Dorsalis Pedal Pulse, Normal Posterior Tibial Pulses Abdomen: Bowel Sounds Present, Soft, Non Tender, No HSM, No Organomegaly Extremities: No Cyanosis, No Clubbing, No edema Neurological: No Focal Motor or Sensory Deficit Psych/Mental Status: Appropriate 09/01/18 03:50: WBC 5.3, RBC 4.46, Hgb 13.8, Hct 41.5, MCV 93.0, MCH 30.9, MCHC 33.3, RDW 14.1, RDW Differential 48.0 H, Plt Count 151, MPV 10.4 09/01/18 03:50: Sodium 143, Potassium 4.1, Chloride 110 H, Carbon Dioxide 24.0, Anion Gap 9, BUN 16, Creatinine 0.77, Est GFR (MDRD) Af Amer 97, Est GFR (MDRD) Non-Af 80, BUN/Creatinine Ratio 20.8 H, Glucose 91, Calcium 8.0 L Rhythm: EKG: ECHO: Stress Test: Cardiac Cath: PCI: CT Surgery: Holter monitor: EPS: PPM: CXR: Chest CT Scan: Medical Necessity - Tobacco Use Smoking Status: Current every day smoker Tobacco Use: Cigarettes Assessment/Plan 1. Non-ST elevation myocardial infarction * Patient presented with chest discomfort and a non-ST elevation myocardial infarction. Underwent cardiac catheterization which demonstrated the following: Normal left main coronary artery. Left anterior descending artery with mid 75% stenosis. Left circumflex artery with mid 85% stenosis and a codominant vessel. First obtuse marginal branch with an ostial 75% stenosis. Codominant right coronary artery with a 60-70% stenosis. Left ventricle with low normal ejection fraction. Based on the above angiographic findings the patient underwent angioplasty and stenting of the mid circumflex artery with ballooning of the diagonal vessel. The hemo globin remained stable and creatinine remained stable. No EKG changes noted. * The patient will be brought back electively for stenting of the left anterior descending artery by Dr. Oates. Would maintain the current medications for now. * Patient would be arranged to follow-up in the interim with a physician library media assistant in the office prior to the next angioplasty and then eventual follow-up with me. 2. Hypertension * Continue current medical therapy * * Stable from my standpoint for discharge * * Thank you for allowing me to participate in the care of your patient. Please don't hesitate to call if any issues arise
--- NOTE | 2018-09-01 08:28 | PCM.DC ---
- Discharge Diagnoses Current Active Problems: Current Active and Chronic Problems NSTEMI (non-ST elevated myocardial infarction) (Acute) Chest pain (Acute) You will use the following diet at home:: Cardiac - carb controlled Your food should be the consistency of: Regular Your liquids should be the consistency of: Regular/Thin Discharge Activity: - - Try and work up to walking for 30 minutes at least 6 times a week. No hills for the next few weeks. May shower in (days): 1 Weight Bearing Status: Full weight bearing Lifting Restrictions: no more than 10 lbs Call your doctor if your incision/area has: Continuous Slow Oozing, Sudden Increased Bleeding, Increased Pain/ Swelling, Increased Redness, Foul Smelling Discharge, Swelling at the incision site Call your doctor if you observe: Fever of 101 or Higher, Shortness of breath, Dizziness, Fainting spells, Chest pain, Increased palpitations (irregular heartbeat), Calf discomfort Instructions: Tips for Quitting Smoking (Cardiovascular), Planning to Quit Smoking, Getting Support for Quitting Smoking, Understanding Peripheral Artery Disease Additional Instructions: You had a stent placed in the circumflex artery and the diagonal branch was dilated with a balloon but did not get a stent. There is still disease in the Left anterior descending artery and the right coronary artery and this will need to be addressed going forward.......you will most likely need more stents. In addition to coronary artery disease you also have peripheral vascular disease. This was obvious when the femoral artery in the right groin was accessed during the cardiac catheterization. You may need stents in your legs going forward. It is adviseable to quit smoking. There is a program for smoking cessation at the hospital and it is run by the respiratory therapists. You are no longer pre-diabetic you have diabetes mellitus type II. You should discuss treatment with your PCP. Your medications have changed to better protect your hard until you can have stents to the other arteries that are occluded. Please take your medications as instructed. Pending Tests on Discharge: ECHO report Allergies/Adverse Reactions: Allergies No Known Allergies Allergy (Verified 08/28/18 18:47) Medications to take at Discharge Amlodipine [Norvasc] 10 mg PO DAILY 04/10/15 Benazepril HCl [Lotensin] 20 mg PO BID 10/17/15 Clopidogrel Bisulfate [Plavix] 75 mg PO DAILY 10/17/15 Hydrochlorothiazide [Hctz] 25 mg PO DAILY 10/17/15 Acetaminophen [Tylenol Arthritis] 650 mg PO Q4H PRN PRN 08/28/18 Ascorbic Acid [Vitamin C] 500 mg PO DAILY@0800 08/28/18 Aspirin 325 mg PO DAILY@0800 08/28/18 Calcium Carb/Vitamin D [Caltrate-600 With Vit D Tab] 1 tab PO DAILY@0800 08/28/18 Glucosam/Rashaun-Msm1/C/Godfrey/Bosw [Osteo Bi-Flex Caplet] 1 tab PO DAILY 08/28/18 Multivit-Min/FA/Lycopen/Lutein [Adults 50 Plus Multivitamin Tb] 1 tab PO DAILY 08/28/18 [place]-3 Fatty Acids/Fish Oil [Cvs Fish Oil 1,200 mg Softgel] 1 cap PO BID 08/28/18 Atorvastatin Calcium [Lipitor] 80 mg PO QHS #30 tablet 09/01/18 Isosorbide Mononitrate [Imdur] 30 mg PO DAILY #30 tablet 09/01/18 Lisinopril [Zestril] 20 mg PO BID #60 tablet 09/01/18 Metoprolol Tartrate [Lopressor (beta kiel)] 25 mg PO BID #60 tablet 09/01/18 Nitroglycerin [Nitrostat] 0.4 mg SUBLINGUAL Q5M PRN #1 bottle 09/01/18 The following prescriptions were given: Atorvastatin Calcium [Lipitor] 80 mg PO QHS #30 tablet Isosorbide Mononitrate [Imdur] 30 mg PO DAILY #30 tablet Nitroglycerin [Nitrostat] 0.4 mg SUBLINGUAL Q5M PRN #1 bottle PRN Reason: Cardiac/Chest Pain Lisinopril [Zestril] 20 mg PO BID #60 tablet Metoprolol Tartrate [Lopressor (beta kiel)] 25 mg PO BID #60 tablet Primary Care Physician: Adin Zaragoza MD [Primary Care Provider] - Please follow up with your Primary Care Physician in: 5-7 days Test Results: Test results from this visit will be discussed in further detail at your follow-up appointment, if applicable. Please Follow Up With: Giovani Alford MD When: VOLUNTEER SERVICES DIRECTOR or PA in Rocío's office in 2 weeks
--- NOTE | 2018-09-01 08:41 | PCM.DC.SUM ---
Discharge Date and Diagnosis Date of Admission: 08/28/18 Date of Discharge: 09/01/18 - Primary Discharge Diagnosis Active and Suspected Problems NSTEMI (non-ST elevated myocardial infarction) (Acute) - type I NSVT (nonsustained ventricular tachycardia) (Acute) Post PTCA (Acute) - Secondary Discharge Diagnosis Chronic Problems Tobacco dependence (Chronic) PVD (peripheral vascular disease) (Chronic) Diabetes mellitus type 2 in obese (Chronic) History of coronary artery stent placement (Chronic 08/31/18) Hyperlipidemia (Chronic) Hypertension (Chronic) Hospital Course and Treatment Imaging Results: Clinical Impression(s) from Imaging Studies Chest X-Ray 08/28/18 19:42 IMPRESSION: There are no acute findings. Electronically Signed: John Kitchen MD at 20:17 EST , Service support , Laboratory Results - last 24 hr 08/31/18 08/31/18 09/01/18 09:25 11:34 03:50 WBC 5.3 RBC 4.46 Hgb 13.8 Hct 41.5 MCV 93.0 MCH 30.9 MCHC 33.3 RDW 14.1 RDW Differential 48.0 H Plt Count 151 MPV 10.4 Activated Clotting Time 175 H 136 Sodium Potassium Chloride Carbon Dioxide Anion Gap BUN Creatinine Estim Creat Clear Calc Est GFR (MDRD) Af Amer Est GFR (MDRD) Non-Af BUN/Creatinine Ratio Glucose Calcium 09/01/18 03:50 WBC RBC Hgb Hct MCV MCH MCHC RDW RDW Differential Plt Count MPV Activated Clotting Time Sodium 143 Potassium 4.1 Chloride 110 H Carbon Dioxide 24.0 Anion Gap 9 BUN 16 Creatinine 0.77 Estim Creat Clear Calc 39.75 Est GFR (MDRD) Af Amer 97 Est GFR (MDRD) Non-Af 80 BUN/Creatinine Ratio 20.8 H Glucose [address] Operations: None Procedures: Cardiac catheterization - with PTCA/RUTHY to the mid circumflex artery and balloon angioplasty of the OM#1. Still has a 75% stenosis of the LAD and a 65% stenosis of the RCA Summary of Care Provided: The patient is a 68 year old F with a past medical history of coronary artery disease, PTCA, tobacco dependence, diabetes mellitus type 2, morbid obesity, hypertension and hyperlipidemia who presented to the emergency department at [facility] on 08/28/2018 complaining of chest pain. She had received aspirin and nitroglycerin in the squad and this relieved her pain. At presentation to the emergency room the EKG revealed sinus tachycardia with a heart rate in the 110s. There was no ST segment elevation. The troponin was 0.052 at presentation to the emergency room and the third troponin was 0.094. She was loaded with Plavix in the emergency department and received Nitropaste and a therapeutic dose of Lovenox. Aspirin and statin were continued. She was seen in consultation by Dr. Rodriguez from cardiology who recommended a cardiac catheterization. Catheterization was performed by Dr. Giovani Alford on 08/31/2018 and showed an 85% stenosis of the mid circumflex, 75% stenosis of the OM1, 75% stenosis of the LAD and 65% stenosis of the proximal RCA. The left ventriculogram showed a 55% ejection fraction with normal left ventricular wall motion. She was referred to Dr. Oates for intervention and had successful PTCA/RUTHY of the mid circumflex lesion and successful PCI with PTCA to the ostial OM #1. Dr. Oates mentioned in his dictation that she has severe peripheral vascular disease as evidenced at the time of the puncture of the right femoral artery for cardiac catheterization. Postprocedure she was transported to the cardiac care unit. Overnight she had no significant dysrhythmia but had an occasional isolated PAC. She had an echocardiogram done prior to discharge but the results are not available at this time. She was seen by Dr. Alford and cleared for discharge. She will be brought back electively for stenting of the left anterior descending artery by Dr. Oates. The right groin site had minimal ecchymosis with no hematoma formation at the time of discharge. The bandage was dry with no bleeding. She will follow-up in the [facility] office with the physician's anesthesiologists' assistant in 2 weeks. General: alert, oriented X3, NAD, appropriate with normal affect Neck: supple, trachea midline, carotids have brisk upstroke and normal pulse volume, no JVD, no carotid bruits Lungs: CTA, symmetric chest expansion, not tachypneic, able to lie flat with no respiratory distress Heart: Regular rate and rhythm, normal S1, normal S2, no murmur, no gallop, no rub, PMI is on the midclavicular line Abdomen: soft, NT, ND, BS's present Extremities: no edema, no calf tenderness, peripheral pulses are normal, no cyanosis This note was generated with [employer] dictation software. It may contain incorrect words, spelling, and punctuation that were not noted in checking the note before signing. - Physical Exam Vital Signs Temp Pulse Resp BP Pulse Ox 97.5 F L 67 18 150/67 H 100 09/01/18 08:00 09/01/18 08:00 09/01/18 08:00 09/01/18 08:00 09/01/18 08:00 Oxygen Flow Rate (L/min) 2 Oxygen Delivery Method Room Air Weight: 225 lb Body Mass Index (BMI) 44.0 Intake and Output for Last 24 Hours 08/30/18 08/31/18 09/01/18 23:59 23:59 23:59 Intake Total 1175 / 1175 1152 / 1152 Output Total 200 / 200 Balance 1175 / 1175 952 / 952 Laboratory Tests Past 24 Hrs 08/31/18 08/31/18 09/01/18 09:25 11:34 03:50 WBC 5.3 RBC 4.46 Hgb 13.8 Hct 41.5 MCV 93.0 MCH 30.9 MCHC 33.3 RDW 14.1 RDW Differential 48.0 H Plt Count 151 MPV 10.4 Activated Clotting Time 175 H 136 Sodium Potassium Chloride Carbon Dioxide Anion Gap BUN Creatinine Estim Creat Clear Calc Est GFR (MDRD) Af Amer Est GFR (MDRD) Non-Af BUN/Creatinine Ratio Glucose Calcium 09/01/18 03:50 WBC RBC Hgb Hct MCV MCH MCHC RDW RDW Differential Plt Count MPV Activated Clotting Time Sodium 143 Potassium 4.1 Chloride 110 H Carbon Dioxide 24.0 Anion Gap 9 BUN 16 Creatinine 0.77 Estim Creat Clear Calc 39.75 Est GFR (MDRD) Af Amer 97 Est GFR (MDRD) Non-Af 80 BUN/Creatinine Ratio 20.8 H Glucose 91 Calcium 8.0 L Discharge Activity: - - Try and work up to walking for 30 minutes at least 6 times a week. No hills for the next few weeks. May shower in (days): 1 Weight Bearing Status: Full weight bearing Call your doctor if your incision/area has: Continuous Slow Oozing, Sudden Increased Bleeding, Increased Pain/ Swelling, Increased Redness, Foul Smelling Discharge, Swelling at the incision site Call your doctor if you observe: Fever of 101 or Higher, Shortness of breath, Dizziness, Fainting spells, Chest pain, Increased palpitations (irregular heartbeat), Calf discomfort Home Medications: Medications to take at Discharge Amlodipine [Norvasc] 10 mg PO DAILY 04/10/15 Benazepril HCl [Lotensin] 20 mg PO BID 10/17/15 Clopidogrel Bisulfate [Plavix] 75 mg PO DAILY 10/17/15 Hydrochlorothiazide [Hctz] 25 mg PO DAILY 10/17/15 Acetaminophen [Tylenol Arthritis] 650 mg PO Q4H PRN PRN 08/28/18 Ascorbic Acid [Vitamin C] 500 mg PO DAILY@0800 08/28/18 Aspirin 325 mg PO DAILY@0800 08/28/18 Calcium Carb/Vitamin D [Caltrate-600 With Vit D Tab] 1 tab PO DAILY@0800 08/28/18 Glucosam/Rashaun-Msm1/C/Godfrey/Bosw [Osteo Bi-Flex Caplet] 1 tab PO DAILY 08/28/18 Multivit-Min/FA/Lycopen/Lutein [Adults 50 Plus Multivitamin Tb] 1 tab PO DAILY 08/28/18 [place]-3 Fatty Acids/Fish Oil [Cvs Fish Oil 1,200 mg Softgel] 1 cap PO BID 08/28/18 Atorvastatin Calcium [Lipitor] 80 mg PO QHS #30 tablet 09/01/18 Isosorbide Mononitrate [Imdur] 30 mg PO DAILY #30 tablet 09/01/18 Lisinopril [Zestril] 20 mg PO BID #60 tablet 09/01/18 Metoprolol Tartrate [Lopressor (beta darwin)] 25 mg PO BID #60 tablet 09/01/18 Nitroglycerin [Nitrostat] 0.4 mg SUBLINGUAL Q5M PRN #1 bottle 09/01/18 Following Prescrptions Were Given to Patient: Atorvastatin Calcium [Lipitor] 80 mg PO QHS #30 tablet Isosorbide Mononitrate [Imdur] 30 mg PO DAILY #30 tablet Nitroglycerin [Nitrostat] 0.4 mg SUBLINGUAL Q5M PRN #1 bottle PRN Reason: Cardiac/Chest Pain Lisinopril [Zestril] 20 mg PO BID #60 tablet Metoprolol Tartrate [Lopressor (beta darwin)] 25 mg PO BID #60 tablet Primary Care Physician: Adin Zaragoza MD [Primary Care Provider] - Please follow up with your Primary Care Physician in: 5-7 days Please Follow Up With: Giovani Alford MD When: AUXILIARY ENGINEER or PA in [place]'s office in 2 weeks Patient Instructions: Tips for Quitting Smoking (Cardiovascular), Understanding Peripheral Artery Disease, Planning to Quit Smoking, Getting Support for Quitting Smoking Medical Necessity - Tobacco Use Smoking Status: Current every day smoker - 1 PPD Tobacco Use: Cigarettes Meaningful Use Info Meaningful Use Diagnoses (Choose all that apply): AMI - AMI Aspirin given w/in 24hrs of arrival?: Yes ASA at discharge?: Yes Statins at discharge?: Yes Quoc/ARB at discharge?: Yes Beta Darwin at discharge?: Yes Done w/ Acute MT measure.: Yes Code Visit Inpatient E&M: 78682 Disch Hosp
[2018-09-01] MEDS: Ascorbic Acid 500 MG Tablet PO (08:57)
[2018-09-01] MEDS: Calcium Carb/Vitamin D 1 TABLET Tablet PO (08:57)
[2018-09-01] MEDS: Aspirin 325 MG Tablet PO (08:57)
[2018-09-01] MEDS: Isosorbide Mononitrate 30 MG Tablet PO (08:58)
[2018-09-01] MEDS: Metoprolol Tartrate 25 MG Tablet PO (08:58)
[2018-09-01] MEDS: Clopidogrel Bisulfate 75 MG Tablet PO (08:59)
[2018-09-01] MEDS: amLODIPine 10 MG Tablet PO (08:59)
[2018-09-01] MEDS: hydroCHLOROthiazide 25 MG Tablet PO (08:59)
[2018-09-01] MEDS: Lisinopril 20 MG Tablet PO (09:00)
--- NOTE | 2018-09-01 10:00 | EKG12_ITS ---
Test Reason : AM EKG Blood Pressure : / mmHG Vent. Rate : 061 BPM Atrial Rate : 061 BPM P-R Int : 184 ms QRS Dur : 092 ms QT Int : 444 ms P-R-T Axes : 079 -18 -04 degrees QTc Int : 446 ms Normal sinus rhythm Low voltage QRS Borderline ECG When compared with ECG of 31-AUG-2018 10:50, MANUAL COMPARISON REQUIRED, DATA IS UNCONFIRMED Confirmed by JENA HENDRICKSON, MELODIE ([id number]), field map editor MILTON CALLEJAS ([id number]) on 09/04/2018 2:23:57 PM Referred By: Pantera Pizano Confirmed By:MELODIE BELLA MD
--- NOTE | 2018-09-04 16:31 | CASEMGMT ---
JANNY BARRAGAN Discharge Follow-up Phone Call: YESSICA: Baltazar Strata: 3 Call Date: 09/02/18 & 09/04/18 Discharge Date: 09/01/18 Time of Call: 1630 Duration: 0 ? Admitting Diagnosis: NSTEMI This RN LAUREL attempted to contact pt via phone regarding discharge follow-up. Attempts on 09/02 and 09/04 both with no answer, no voicemail option. Derrick Keith RN
--- OUTSIDE RECORDS SUMMARY | 2018-12-02 07:42 | XMS RPT_ITS ---
:1950 Author Organization OHIP Support Name Relationship Address Phone R Unavailable Unavailable Unavailable RADHA WILLIS Unavailable Unavailable + [place] R Unavailable Unavailable Unavailable R Unavailable Unavailable Unavailable HAVEN, DRE Unavailable [address] + [place] [address] R Unavailable Unavailable Unavailable HAVEN, DRE Unavailable [address] + [place] [address] R Unavailable Unavailable Unavailable R Unavailable Unavailable Unavailable R Unavailable Unavailable Unavailable R Unavailable Unavailable Unavailable R Unavailable Unavailable Unavailable HAVEN, DRE Unavailable [address] + [place] [address] R Unavailable Unavailable Unavailable R Unavailable Unavailable Unavailable R Unavailable Unavailable Unavailable R Unavailable Unavailable Unavailable R Unavailable Unavailable Unavailable R Unavailable Unavailable Unavailable R Unavailable Unavailable Unavailable R Unavailable Unavailable Unavailable R Unavailable Unavailable Unavailable R Unavailable Unavailable Unavailable NONE Unavailable Unavailable Unavailable NONE Unavailable Unavailable Unavailable NONE Unavailable Unavailable Unavailable NONE Unavailable Unavailable Unavailable HAVEN, DRE Unavailable [address] + [place] [address] R Unavailable Unavailable Unavailable D Unavailable Unavailable Unavailable HAVEN, DRE Unavailable [address] + [place] [address] NONE Unavailable Unavailable Unavailable NONE Unavailable Unavailable Unavailable NONE Unavailable Unavailable Unavailable NONE Unavailable Unavailable Unavailable Care Team Providers Name Role Phone ADIN HUERTA MD Attending Unavailable ADIN HUERTA MD Primary Care Unavailable ADIN HUERTA MD Attending Unavailable ADIN HUERTA MD Primary Care Unavailable ADIN HUERTA MD Attending Unavailable ADIN HUERTA MD Primary Care Unavailable ADIN HUERTA MD Attending Unavailable ADIN HURETA MD Primary Care Unavailable ADIN HUERTA Primary Care Unavailable Pantera iPzano Admitting Unavailable Pantera Pizano Referring Unavailable Natasha Rodriguez Consulting Unavailable Larissa Schulz Attending Unavailable Agyepong, Pantera Admitting Unavailable Agyepong, Pantera Attending Unavailable Agyepong, Pantera Referring Unavailable [facility] Unavailable Agyepong, Pantera Consulting Unavailable Agyepong, Pantera Admitting Unavailable Agyepong, Pantera Referring Unavailable [facility] Unavailable Michael, Natasha Consulting Unavailable Sementi, Larissa Attending Unavailable Sementi, Larissa Consulting Unavailable Agyepong, Pantera Admitting Unavailable Michael, Natasha Attending Unavailable Agyepong, Pantera Referring Unavailable [facility] Unavailable Michael, Natasha Consulting Unavailable Sementi, Larissa Consulting Unavailable Agyepong, Pantera Admitting Unavailable Sementi, Larissa Attending Unavailable Agyepong, Pantera Referring Unavailable [facility] Unavailable Michael, Natasha Consulting Unavailable Sementi, Larissa Consulting Unavailable Sementi, Larissa Attending Unavailable Agyepong, Pantera Admitting Unavailable Agyepong, Pantera Referring Unavailable [facility] Unavailable Michael, Natasha Consulting Unavailable Sementi, Larissa Consulting Unavailable ADIN HUERTA Attending Unavailable HUERTAADIN Referring Unavailable [facility] Unavailable Agyepong, Pantera Admitting Unavailable Rocío, Giovani Attending Unavailable Agyepong, Pantera Referring Unavailable [facility] Unavailable Michael, Natasha Consulting Unavailable Sementi, Larissa Consulting Unavailable Agyepong, Pantera Admitting Unavailable Sementi, Larissa Attending Unavailable Agyepong, Pantera Referring Unavailable [facility] Unavailable Michael, Natasha Consulting Unavailable Sementi, Larissa Consulting Unavailable Will Smyth Attending Unavailable [facility] Referring Unavailable [facility] Unavailable Joe Oates Attending Unavailable Joe Oates Referring Unavailable Michael, Natasha Consulting Unavailable Rocío, Giovani Attending Unavailable Agyepong, Pantera Referring Unavailable Rocío, Giovani Attending Unavailable Agyepong, Pantera Referring Unavailable Rocío, Clairfield Attending Unavailable Sementi, Larissa Referring Unavailable [place] Attending Unavailable ADIN HUERTA Referring Unavailable PROBLEMS PROBLEMS DATE TYPE CONDITION / CODE ATTENDING STATUS SOURCE Unknown R94.31 - Abnormal Rocío, Giovani Active [facility] electro[facility]ogram Community [ECG] [EKG] / Hospital R94.31(ICD-10) Repository Unknown I47.2 - Ventricular Rocío, Giovani Active [facility] tachycardia / Community I47.2(ICD-10) Hospital Repository Unknown I10 - Essential Rocío, Clairfield Active [facility] (primary) hypertension Community / I10(ICD-10) Hospital Repository Unknown Z95.5 - Presence of Rocío, Clair[place] Active [facility] coronary angioplasty Community implant and graft / Hospital Z95.5(ICD-10) Repository Admitting Urinary tract DEANNA HENDRICKSON, Active [place] [address] Diagnosis infection, site not ADIN DCait [facility] specified / Repository N39.0(ICD-10) Admitting Type 2 diabetes DEANNA HENDRICKSON, Active [place] [address] Diagnosis mellitus without ADIN D. [facility] complications / Repository E11.9(ICD-10) Unknown R07.89 - Other chest ADIN HUERTA Active [facility] pain / R07.89(ICD-10) [facility] Hospital Repository Admitting Essential (primary) DEANNA HENDRICKSON, Active [place] [address] Diagnosis hypertension / ADIN Hathaway [facility] I10(ICD-10) Repository Admitting Mixed hyperlipidemia / DEANNA HENDRICKSON, Active [place] [address] Diagnosis E78.2(ICD-10) ADIN D. [facility] Repository PROCEDURES PROCEDURES No Procedure Records FoundRESULTS RESULTS 12 LEAD ELECTROCARDIOGRAM Observed: 10/05/2018 Status: F Source: [place] 9:56 AM [facility] REPOSITORY [facility] Cardiovascular Services [address] [place] [address] 12 Lead EKG 09/30/18 1534 MR#: [id number] Acct: [id number] Name: MAKI CHURCH Rep #: [id number] : 1950 68 From: Giovani Alford MD Attending Dr: Joe Oates MD [place] [facility] [place]: Joe Oates MD Date: 09/30/18 Location: [facility] Sex: F C Admitted: Test Reason : POST PCI Blood Pressure : / mmHG Vent. Rate : 103 BPM Atrial Rate : 103 BPM P-R Int : 196 ms QRS Dur : 086 ms QT Int : 370 ms P-R-T Axes : 075 -15 035 degrees QTc Int : 484 ms Sinus tachycardia with occasional Premature ventricular complexes Low voltage QRS Borderline ECG When compared with ECG of 01-SEP-2018 04:33, Premature ventricular complexes are now Present Vent. rate has increased BY 42 BPM Confirmed by GIOVANI ALFORD MD ([id number]), desk editor MAYITO GONZALEZ ([id number]) on 10/05/2018 9:55:59 AM Referred By: Joe Oates Confirmed By:GIOVANI ALFORD MD 10/05/18 0956 Date Giovani Alford MD CC: Joe Oates MD; Adin Huerta MD Signed 12 LEAD ELECTROCARDIOGRAM Observed: 10/05/2018 Status: F Source: [place] 9:55 AM [facility] Cardiovascular Services [address] [place] [address] 12 Lead EKG 10/01/18 0523 MR#: [id number] Acct: [id number] Name: MAKI CHURCH Rep #: [id number] : 1950 68 From: Giovani Alford MD Attending Dr: Joe Oates MD Status: [facility] Ordering Dr: Joe Oates MD Date: 10/01/18 Location: [facility] Sex: F C Admitted: Test Reason : AM EKG Blood Pressure : / mmHG Vent. Rate : 077 BPM Atrial Rate : 077 BPM P-R Int : 148 ms QRS Dur : 092 ms QT Int : 440 ms P-R-T Axes : 020 -16 -17 degrees QTc Int : 497 ms Normal sinus rhythm Normal ECG When compared with ECG of 30-SEP-2018 15:34, MANUAL COMPARISON REQUIRED, DATA IS UNCONFIRMED Confirmed by GIOVANI ALFORD MD ([id number]), desk editor MAYITO GONZALEZ ([id number]) on 10/05/2018 9:55:26 AM Referred By: Joe Oates Confirmed By:GIOVANI ALFORD MD 10/05/18 0955 Date Giovani Alford MD CC: Joe Oates MD; Adin Huerta MD Signed DISCHARGE INSTRUCTION Observed: 10/01/2018 Status: F Source: [place] 10:13 AM [facility] REPOSITORY [facility] Medical Records Department [address] [place] [address] Instructions for Home/Discharge Instructions 10/01/18 0907 MR#: [id number] Acct: [id number] Name: MAKI CHURCH Rep #: [id number] : 1950 68 From: Eun JACK PCP: Adin Huerta MD Status: REG SDC Discharge Diet: No Restrictions - You may continue your normal diet. Discharge Activity: Return to Normal Activity May resume sexual activity in: 1 week - if no groin problems occur. Lifting Restrictions: 10 pounds and also avoid any pushing or pulling for 3 days after your test. Call your doctor if your incision/area has: Increased Pain/ Swelling, Increased Redness, Foul Smelling Discharge, Swelling at the incision site Call your doctor if you observe: Fever of 101 or Higher Remove Dressing in (days):: 1 Additional Dressing/Incision Instructions:: Keep the dressing (bandage) on until the next morning. You may then shower, but do not take a tub bath for 5 days after your test. It is normal to have some tenderness and discomfort at the puncture site. Sometimes bruising also occurs. However, if pain, numbness, or coldness occurs below the puncture site (in your leg, toes, arms or fingers) call your doctor at once. You may have a small, marble sized knot at the puncture site. This is normal. Do not rub it. It will go away in 4-6 weeks. Bleeding can occur from the area where the puncture was done. Blood may spurt or drip from the site. If blood spurts, apply pressure right away to stop bleeding and call 911. Although rare, bleeding into the tissue (hematoma) can also occur. If this happens, a large, firm area goose egg under the skin will appear. If any of these occur, lie down as flat as you can and have someone apply firm pressure to the cath site with a gauze pad or a clean washcloth for 10-15 minutes. Call 911 or go to the Emergency Department. Additional Instructions: You need to stay on your Plavix for at least one year before it may be stopped. We switched your metoprolol to Coreg. A new Rx was sent to [facility]. This medication is also taken twice a day. At your F/U appt we will discuss cardiac rehab further Allergies/Adverse Reactions: Allergies No Known Allergies Allergy (Verified 09/23/18 07:31) Medications to take at Discharge RX: Amlodipine [Norvasc] 10 mg PO DAILY 04/10/15 RX: Clopidogrel Bisulfate [Plavix] 75 mg PO DAILY 10/17/15 RX: Hydrochlorothiazide [Hctz] 25 mg PO DAILY 10/17/15 RX: Acetaminophen [Tylenol Arthritis] 650 mg PO Q4H PRN PRN 08/28/18 RX: Ascorbic Acid [Vitamin C] 500 mg PO DAILY@0800 08/28/18 RX: Aspirin 325 mg PO DAILY@0800 08/28/18 RX: Calcium Carb/Vitamin D [Caltrate-600 With Vit D Tab] 1 tab PO DAILY@0800 08/28/18 RX: Glucosam/Rashaun-Msm1/C/Godfrey/Bosw [Osteo Bi-Flex Caplet] 1 tab PO DAILY 08/28/18 RX: Multivit-Min/FA/Lycopen/Lutein [Adults 50 Plus Multivitamin Tb] 1 tab PO DAILY 08/28/18 RX: [place]-3 Fatty Acids/Fish Oil [Cvs Fish Oil 1,200 mg Softgel] 1 cap PO BID 08/28/18 RX: Nitroglycerin [Nitrostat] 0.4 mg SUBLINGUAL Q5M PRN #1 bottle 09/01/18 atorvastatin 80 mg tablet 80 mg PO QHS #30 tab 09/14/18 isosorbide mononitrate ER 30 mg tablet,extended release 24 hr 30 mg PO DAILY #30 tab 09/14/18 lisinopril 20 mg tablet 20 mg PO BID #60 tab 09/14/18 RX: Carvedilol [Coreg (Beta Darwin)] 6.25 mg PO BID #60 tablet 10/01/18 The following prescriptions were given: RX: Carvedilol [Coreg (Beta Darwin)] 6.25 mg PO BID #60 tablet Primary Care Physician: Adin Huerta MD [Primary Care Provider] - Test Results: Test results from this visit will be discussed in further detail at your follow-up appointment, if applicable. Please Follow Up With: Will Smyth NP-C - call the office if you need the time, this was schedule prior to your cath When: 10/12 Cardiac Rehabilitation Info Cardiac Rehabilitation Program Information: Cardiac Rehabilitation is important for patients like you who are recovering from a heart problem. Cardiac rehabilitation programs are recognized as integral to the continued care of the patient with coronary heart disease. The cardiac rehabilitation program is designed to optimize a patient's physical, psychological, and social functioning. Health physician primary care sports medicine work in cardiac rehabilitation programs and assist you with getting the treatments you need to get stronger and healthier - like exercise, healthy eating habits, and medications. Cardiac rehabilitation has been show to help people with heart problems live longer and have better life enjoyment than people who do not go to cardiac rehabilitation. Please contact the Cardiac Rehabilitation Program at [facility] at in two weeks if you have not heard from them. 10/01/18 1013 <Electronically signed by Eun JACK> Date Eun JACK CC: Natasha Rodriguez MD; Adin Huerta MD Signed CBC-COMPLETE BLOOD CNT Collected: 10/01/2018 Status: F Source: [place] NO DIFF 4:00 AM [facility] REPOSITORY TYPE CODE TESTS RESULT OUT OF RANGE REFERENCE UNITS LAB L100.1000 4.4-11.0 K/mm3 Normal WBC 9.2 LAB L100.1200 4.2-5.4 M/mm3 Normal RBC 4.50 LAB L100.1300 12.0-15.0 g/dl Normal HGB 14.1 LAB L100.1400 37-47 % Normal HCT 43.7 LAB L100.1500 81-99 fL Normal MCV 97.1 LAB L100.1600 27.0-32.0 pg Normal MCH 31.3 LAB L100.1700 32-36 g/gl Normal MCHC 32.3 LAB L100.1810 11.6-14.6 % High RDW CV 14.9 LAB L100.1820 35.1-43.9 fl High RDW SD 52.6 LAB L100.1900 150-450 K/mm3 Normal PLT 183 LAB L100.2000 6.2-12.0 fl Normal MPV 11.1 Performed By: #### L100.0500 #### [facility] [address] [place], [address] BASIC METABOLIC Collected: 10/01/2018 Status: F Source: [place] PRO[place] (BMP) 4:00 AM [facility] REPOSITORY TYPE CODE TESTS RESULT OUT OF RANGE REFERENCE UNITS LAB L501.0100 74-106 mg/dL High GLU 124 Result Comment: Fasting Glucose result from 100 to 125 mg/dL suggests IMPAIRED HOMEOSTASIS per A.D.A. criteria. Please note revised GLUCOSE reference range effective 2017. LAB L501.1000 7-18 mg/dL Normal BUN 16 LAB L501.1100 0.55-1.02 mg/dL Normal CREAT,SERUM 0.59 Result Comment: The validity of the calculated GFR AND GFRAA in patients over 70 years has not been determined. Clinical correlation is essential. LAB L501.1110 >60 mL/min Normal EST GFR 108 Result Comment: Non- GFR Calc LAB L501.1115 >60 mL/min Normal EST GFR - AA 131 Result Comment: GFR Calc LAB L501.1255 ml/min Normal Estimated CRCL 39.75 LAB L501.1300 10-20 RATIO High BUN/CRE 27.0 LAB L501.2200 8.5-10 mg/dL Normal .1 CA 8.5 LAB L501.5300 136-14 mmol/L Normal 5 NA 143 LAB L501.5600 3.5-5. mmol/L Normal 1 K 5.1 Result Comment: Moderate Hemolysis, Result may be falsely increased. LAB L501.5900 98-107 mmol/L High CL 109 LAB L501.6100 21.0-32.0 mmol/L Normal CO2 26.0 LAB L501.6200 5-15 Normal 8 GAP Performed By: #### L500.2500 #### [facility] [address] [place], [place], [address] ACT ACTIVATED CLOTTING Collected: 09/30/2018 Status: F Source: [place] 2:17 PM [facility] REPOSITORY TYPE CODE TESTS RESULT OUT OF RANGE REFERENCE UNITS LAB L9100.0100 74-137 sec High ACTk CLOT 169 TIME Performed By: #### L9100.0100 #### [facility] Point of Care [address] [place] [address] CONSULTATION Observed: 09/24/2018 Status: F Source: [place] 4:04 PM [facility] REPOSITORY [facility] Medical Records Department [address] [place] [address] Consultation 08/29/18 1003 MR#: [id number] Acct: [id number] Name: MAKI CHURCH Rep #: [id number] : 1950 68 From: Natasha Rodriguez MD PCP: Adin Huerta MD Status: DIS IN Y Location: ICU [place] [address] Problem List (1) Chest pain Status: Acute Reason for Consult Date of Consultation: 08/29/18 History of Present Illness: The patient is a 68 year old F with past medical history significant for hypertension, coronary artery disease, dyslipidemia, diabetes mellitus and nicotine dependence. She presented to the emergency room with complaints of chest pain yesterday. According to the patient, the discomfort started at rest. She describes it as a heavy sensation across her anterior chest and some tingling in her right arm. She could not identify any exacerbating factors. According to her, the discomfort was relieved when she was given sublingual nitroglycerin in the emergency room. She has not had any recurrence of her chest pain since then. X Patient denies any recent history of exertional angina or shortness of breath. According to her, she has had coronary stents put in few years ago. However she is not sure of the neck timeframe. Denies any orthopnea or paroxysmal nocturnal dyspnea. 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 Denies: Orthopnea, PND Respiratory: Denies: Cough, Hemoptysis Gastrointestinal: Denies: Abdominal Discomfort, Jaundice, Nausea Neurological: Reports: History of CVA Subjectve: Comfortable. No apparent distress Objective: Vital Signs Temp Pulse Resp BP Pulse Ox 98.6 F 92 16 141/84 H 94 08/29/18 05:58 08/29/18 07:22 08/29/18 05:58 08/29/18 05:58 08/29/18 07:12 Oxygen Flow Rate (L/min) 2 Oxygen Delivery Method Room Air Weight: 102.3 kg Body Mass Index (BMI) 44.0 General: Awake, Alert, Oriented x 3, No Acute Distress HEENT: Atraumatic, Normocephalic Oral: Moist Mucosa Neck: No JVD Lungs: Clear to auscultation Cardiovascular: Regular Rhythm, Normal S1, Normal S2 Vascular: No Carotid Bruits Abdomen: Bowel Sounds Present, Soft Extremities: Bilateral Edema +1 Neurological: - - Grossly intact Psych/Mental Status: Appropriate 08/28/18 18:45: WBC 5.2, RBC 5.05, Hgb 16.0 H, Hct 46.6, MCV 92.3, MCH 31.7, MCHC 34.3, RDW 14.0, RDW Differential 47.1 H, Plt Count 170, MPV 11.0, Immature Gran % (Auto) 0.200, Neut % (Auto) 64.3, Lymph % (Auto) 9.0 L, Zavala % (Auto) 17.3 H, Eos % (Auto) 9.0 H, Baso % (Auto) 0.2, Absolute Neuts (auto) 3.3, Total Counted Not Reportable 08/28/18 18:45: Sodium 137, Potassium 3.7, Chloride 101, Carbon Dioxide 25.0, Anion Gap 11, BUN 22 H, Creatinine 0.92, Est GFR (MDRD) Af Amer 79, Est GFR (MDRD) Non-Af 65, BUN/Creatinine Ratio 23.9 H, Glucose 147 H, Calcium 8.7, Troponin I 0.052 H 08/28/18 21:45: Troponin I 0.079 H 08/29/18 01:05: Troponin I 0.094 H 08/29/18 05:30: WBC 5.0, RBC 4.55, Hgb 14.2, Hct 42.3, MCV 93.0, MCH 31.2, MCHC 33.6, RDW 14.2, RDW Differential 46.9 H, Plt Count 141 L, MPV 11.3 08/29/18 05:30: PT 15.0 H, INR 1.2, APTT 42.5 H 08/29/18 05:30: Sodium 141, Potassium 3.6, Chloride 108 H, Carbon Dioxide 24.0, Anion Gap 9, BUN 15, Creatinine 0.75, Est GFR (MDRD) Af Amer 100, Est GFR (MDRD) Non-Af 82, BUN/Creatinine Ratio 20.0, Glucose 123 H, Calcium 8.0 L, Triglycerides 156, Cholesterol 85, LDL Cholesterol 32, VLDL Cholesterol 31, HDL Cholesterol 22 L Rhythm: Normal sinus rhythm EKG: Normal sinus rhythm. Nonspecific ST changes ECHO: Stress Test: Cardiac Cath: PCI: CT Surgery: Holter monitor: EPS: PPM: CXR: Chest CT Scan: Assessment/Plan 1. Chest discomfort with minimally elevated troponin. Consider non-ST elevation myocardial infarction/unstable angina. On aspirin. Agree with starting clopidogrel. Start low-dose beta-blockers. Change nitrates to p.o. Patient has had a stress test done about 6 months ago. Her ejection fraction was noted to be 73%. No ischemia was noted. However with this episode of chest discomfort and minimally elevated troponin and her history of coronary artery disease with percutaneous intervention in the past, I recommended cardiac catheterization with coronary angiography and possible revascularization. Risks benefits were explained to the patient in detail. She understands these and wishes to proceed with cardiac catheterization. However she insists that she will have it done as outpatient. She refuses to stay in the hospital. She is aware of risks of another SC, cardiac arrhythmias and sudden cardiac . She understands these but still insists on going home today. 2. Diabetes mellitus. 3. History of CAD. 4. Hypertension. 5. Dyslipidemia. 6. Nicotine dependence. Counseled to quit As noted above, patient insists on going home. Recommend follow-up as outpatient with Dr. Alford early next week. 09/24/18 1604 <Electronically signed by Natasha Rodriguez MD> Date Natasha Rodriguez MD Cosigner Signature (if applicable): Date CC: Natasha Rodriguez MD; Pantera Pizano MD; Adin Huerta MD Signed 12 LEAD ELECTROCARDIOGRAM Observed: 09/04/2018 Status: F Source: [place] 2:24 PM [facility] REPOSITORY [facility] Cardiovascular Services [address] [place] [address] 12 Lead EKG 09/01/18 0433 MR#: [id number] Acct: [id number] Name: MAKI CHURCH Rep #: [id number] : 1950 68 From: Giovani Alford MD Attending Dr: Larissa Schulz Status: DIS IN Ordering Dr: Joe Oates MD Date: 09/01/18 Location: ICU Sex: F C Admitted: 08/29/18 Test Reason : AM EKG Blood Pressure : / mmHG Vent. Rate : 061 BPM Atrial Rate : 061 BPM P-R Int : 184 ms QRS Dur : 092 ms QT Int : 444 ms P-R-T Axes : 079 -18 -04 degrees QTc Int : 446 ms Normal sinus rhythm Low voltage QRS Borderline ECG When compared with ECG of 31-AUG-2018 10:50, MANUAL COMPARISON REQUIRED, DATA IS UNCONFIRMED Confirmed by ROCÍO HENDRICKSON, GIOVANI ([id number]), desk editor MILTON CALLEJAS ([id number]) on 09/04/2018 2:23:57 PM Referred By: Pantera Pizano Confirmed By:GIOVANI ALFORD MD 09/04/18 1424 Date Giovani Alford MD CC: Larissa Schulz; Joe Oates MD; Pantera Pizano MD; Adin Huerta MD Signed 12 LEAD ELECTROCARDIOGRAM Observed: 09/04/2018 Status: F Source: [place] 2:24 PM [facility] REPOSITORY [facility] Cardiovascular Services [address] [place] [address] 12 Lead EKG 08/31/18 1050 MR#: [id number] Acct: [id number] Name: MAKI CHURCH Rep #: [id number] : 1950 68 From: Giovani Alford MD Attending Dr: Larissa Schulz Status: DIS IN Ordering Dr: Joe Oates MD Date: 08/31/18 Location: ICU Sex: F C Admitted: 08/29/18 Test Reason : S Blood Pressure : / mmHG Vent. Rate : 065 BPM Atrial Rate : 065 BPM P-R Int : 180 ms QRS Dur : 086 ms QT Int : 460 ms P-R-T Axes : 050 -11 016 degrees QTc Int : 478 ms Normal sinus rhythm Low voltage QRS Borderline ECG When compared with ECG of 31-AUG-2018 05:48, MANUAL COMPARISON REQUIRED, DATA IS UNCONFIRMED Confirmed by ROCÍO HENDRICKSON, GIOVANI ([id number]), desk editor MILTON CALLEJAS ([id number]) on 09/04/2018 2:24:06 PM Referred By: Pantera Pizano Confirmed By:GIOVANI ALFORD MD 09/04/18 1424 Date Giovani Alford MD CC: Larissa Schulz; Joe Oates MD; Pantera Pizano MD; Adin Huerta MD Signed 12 LEAD ELECTROCARDIOGRAM Observed: 09/02/2018 Status: F Source: [place] 4:02 PM [facility] REPOSITORY [facility] Cardiovascular Services [address] [place] [address] 12 Lead EKG 08/29/18 0538 MR#: [id number] Acct: [id number] Name: MAKI CHURCH Rep #: [id number] : 1950 68 From: Giovani Alford MD Attending Dr: Larissa Schulz Status: DIS IN Ordering Dr: Pantera Pizano MD Date: 08/29/18 Location: ICU Sex: F C Admitted: 08/29/18 Test Reason : AM EKG Blood Pressure : / mmHG Vent. Rate : 095 BPM Atrial Rate : 095 BPM P-R Int : 172 ms QRS Dur : 086 ms QT Int : 382 ms P-R-T Axes : 052 -20 -03 degrees QTc Int : 480 ms Normal sinus rhythm Low voltage QRS Cannot rule out Anterior infarct , age undetermined Abnormal ECG When compared with ECG of 28-AUG-2018 21:50, MANUAL COMPARISON REQUIRED, DATA IS UNCONFIRMED Confirmed by ROCÍO HENDRICKSON, GIOVANI ([id number]), desk editor MILTON CALLEJAS ([id number]) on 09/02/2018 4:01:46 PM Referred By: Pantera Pizano Confirmed By:GIOVANI ALFORD MD 09/02/18 1601 Date Giovani Alford MD CC: Larissa Shculz; Pantera Pizano MD; Adin Huerta MD Signed 12 LEAD ELECTROCARDIOGRAM Observed: 09/02/2018 Status: F Source: [place]ASH 4:02 PM [facility] REPOSITORY [facility] Cardiovascular Services [address] [place] [address] 12 Lead EKG 08/28/18 2150 MR#: [id number] Acct: [id number] Name: MAKI CHURCH Rep #: [id number] : 1950 68 From: Giovani Alford MD Attending Dr: Larissa Schulz Status: DIS IN Ordering Dr: Pantera Pizano MD Date: 08/28/18 Location: ICU Sex: F C Admitted: 08/29/18 Test Reason : CP ADMIT Blood Pressure : / mmHG Vent. Rate : 097 BPM Atrial Rate : 097 BPM P-R Int : 178 ms QRS Dur : 094 ms QT Int : 392 ms P-R-T Axes : 070 -13 012 degrees QTc Int : 497 ms Normal sinus rhythm Cannot rule out Anterior infarct , age undetermined Abnormal ECG When compared with ECG of 28-AUG-2018 18:55, MANUAL COMPARISON REQUIRED, DATA IS UNCONFIRMED Confirmed by ROCÍO HENDRICKSON, GIOVANI ([id number]), desk editor MILTON CALLEJAS ([id number]) on 09/02/2018 4:02:27 PM Referred By: Pantera Pizano Confirmed By:GIOVANI ALFORD MD 09/02/18 1602 Date Giovani Alfrod MD CC: Larissa Schulz; Pantera Pizano MD; Adin Huerta MD Signed 12 LEAD ELECTROCARDIOGRAM Observed: 09/02/2018 Status: F Source: [place] 3:55 PM [facility] REPOSITORY [facility] Cardiovascular Services [address] [place] [id number] 12 Lead EKG 08/31/18 0548 MR#: [id number] Acct: [id number] Name: MAKI CHURCH Rep #: [id number] : 1950 68 From: Giovani Alford MD Attending Dr: Larissa Schulz Status: DIS IN Ordering Dr: Rene Schulz DO Date: 08/31/18 Location: ICU Sex: F C Admitted: 08/29/18 Test Reason : AM EKG Blood Pressure : / mmHG Vent. Rate : 051 BPM Atrial Rate : 051 BPM P-R Int : 184 ms QRS Dur : 090 ms QT Int : 486 ms P-R-T Axes : 083 -16 -12 degrees QTc Int : 447 ms Sinus bradycardia Cannot rule out Anterior infarct , age undetermined Abnormal ECG When compared with ECG of 29-AUG-2018 05:38, MANUAL COMPARISON REQUIRED, DATA IS UNCONFIRMED Confirmed by GIOVANI ALFORD MD ([id number]), desk editor MILTON CALLEJAS ([id number]) on 09/02/2018 3:55:22 PM Referred By: Pantera Pizano Confirmed By:GIOVANI ALFORD MD 09/02/18 9461 Date Giovani Alford MD CC: Larissa Schulz; Pantera Pizano MD; Adin Huerta MD Signed 12 LEAD ELECTROCARDIOGRAM Observed: 09/02/2018 Status: F Source: [place] 3:50 PM [facility] REPOSITORY [facility] Cardiovascular Services [address] [place] [address] 12 Lead EKG 08/28/18 1855 MR#: [id number] Acct: [id number] Name: MAKI CHURCH Rep #: [id number] : 1950 68 From: Giovani Alford MD Attending Dr: Larissa Schulz Status: DIS IN Ordering Dr: Provider,Ed P. Date: 08/28/18 Location: ICU Sex: F C Admitted: 08/29/18 Test Reason : CP Blood Pressure : / mmHG Vent. Rate : 110 BPM Atrial Rate : 110 BPM P-R Int : 166 ms QRS Dur : 088 ms QT Int : 354 ms P-R-T Axes : 083 -04 017 degrees QTc Int : 479 ms Sinus tachycardia Cannot rule out Anterior infarct , age undetermined Abnormal ECG Confirmed by GIOVANI ALFORD MD ([id number]), desk editor MILTON CALLEJAS ([id number]) on 09/02/2018 3:50:12 PM Referred By: Pantera Pizano Confirmed By:GIOVANI ALFORD MD 09/02/18 5329 Date Giovani Alford MD CC: Larissa Schulz; ED PHYSICIAN PROVIDER; Pantera Pizano MD; Adin Huerta MD Signed DISCHARGE SUMMARY Observed: 09/01/2018 Status: F Source: [place] 5:58 PM [facility] REPOSITORY [facility] Medical Records Department [address] [place] [address] Discharge Summary 09/01/18 0841 MR#: [id number] Acct: [id number] Name: MAKI CHURCH Rep #: [id number] : 1950 68 From: Rene Schulz DO PCP: Adin Huerta MD Status: DIS IN Y Location: ICU [id number] Discharge Date and Diagnosis Date of Admission: 08/28/18 Date of Discharge: 09/01/18 - Primary Discharge Diagnosis Active and Suspected Problems NSTEMI (non-ST elevated myocardial infarction) (Acute) - type I NSVT (nonsustained ventricular tachycardia) (Acute) Post PTCA (Acute) - Secondary Discharge Diagnosis Chronic Problems Tobacco dependence (Chronic) PVD (peripheral vascular disease) (Chronic) Diabetes mellitus type 2 in obese (Chronic) History of coronary artery stent placement (Chronic 08/31/18) Hyperlipidemia (Chronic) Hypertension (Chronic) Hospital Course and Treatment Imaging Results: Clinical Impression(s) from Imaging Studies Chest X-Ray 08/28/18 19:42 IMPRESSION: There are no acute findings. Electronically Signed: John Kitchen MD at 20:17 EST , Service support , Laboratory Results - last 24 hr WBC 5.3 RBC 4.[address] [facility] None Procedures: Cardiac catheterization - with PTCA/RUTHY to the mid circumflex artery and balloon angioplasty of the OM#1. Still has a 75% stenosis of the LAD and a 65% stenosis of the RCA Summary of Care Provided: The patient is a 68 year old F with a past medical history of coronary artery disease, PTCA, tobacco dependence, diabetes mellitus type 2, morbid obesity, hypertension and hyperlipidemia who presented to the emergency department at [facility] on 08/28/2018 complaining of chest pain. She had received aspirin and nitroglycerin in the squad and this relieved her pain. At presentation to the emergency room the EKG revealed sinus tachycardia with a heart rate in the 110s. There was no ST segment elevation. The troponin was 0.052 at presentation to the emergency room and the third troponin was 0.094. She was loaded with Plavix in the emergency department and received Nitropaste and a therapeutic dose of Lovenox. Aspirin and statin were continued. She was seen in consultation by Dr. Rodriguez from cardiology who recommended a cardiac catheterization. Catheterization was performed by Dr. Giovani Alford on 08/31/2018 and showed an 85% stenosis of the mid circumflex, 75% stenosis of the OM1, 75% stenosis of the LAD and 65% stenosis of the proximal RCA. The left ventriculogram showed a 55% ejection fraction with normal left ventricular wall motion. She was referred to Dr. Oates for intervention and had successful PTCA/RUTHY of the mid circumflex lesion and successful PCI with PTCA to the ostial OM #1. Dr. Oates mentioned in his dictation that she has severe peripheral vascular disease as evidenced at the time of the puncture of the right femoral artery for cardiac catheterization. Postprocedure she was transported to the cardiac care unit. Overnight she had no significant dysrhythmia but had an occasional isolated PAC. She had an echocardiogram done prior to discharge but the results are not available at this time. She was seen by Dr. Alford and cleared for discharge. She will be brought back electively for stenting of the left anterior descending artery by Dr. Oates. The right groin site had minimal ecchymosis with no hematoma formation at the time of discharge. The bandage was dry with no bleeding. She will follow-up in the [facility] office with the physician's planning assistant in 2 weeks. General: alert, oriented X3, NAD, appropriate with normal affect Neck: supple, trachea midline, carotids have brisk upstroke and normal pulse volume, no JVD, no carotid bruits Lungs: CTA, symmetric chest expansion, not tachypneic, able to lie flat with no respiratory distress Heart: Regular rate and rhythm, normal S1, normal S2, no murmur, no gallop, no rub, PMI is on the midclavicular line Abdomen: soft, NT, ND, BS's present Extremities: no edema, no calf tenderness, peripheral pulses are normal, no cyanosis This note was generated with [employer] dictation software. It may contain incorrect words, spelling, and punctuation that were not noted in checking the note before signing. - Physical Exam Vital Signs Temp Pulse Resp BP Pulse Ox 97.5 F L 67 18 150/67 H 100 09/01/18 08:00 09/01/18 08:00 09/01/18 08:00 09/01/18 08:00 09/01/18 08:00 Oxygen Flow Rate (L/min) 2 Oxygen Delivery Method Room Air Weight: 225 lb Body Mass Index (BMI) 44.0 Intake and Output for Last 24 Hours Intake Total 1175 / 1175 1152 / 1152 Output Total 200 / 200 Balance 1175 / 1175 952 / 952 Laboratory Tests Past 24 Hrs WBC 5.3 RBC 4.46 Hgb 13.8 Hct 41.5 Discharge Activity: - - Try and work up to walking for 30 minutes at least 6 times a week. No hills for the next few weeks. May shower in (days): 1 Weight Bearing Status: Full weight bearing Call your doctor if your incision/area has: Continuous Slow Oozing, Sudden Increased Bleeding, Increased Pain/ Swelling, Increased Redness, Foul Smelling Discharge, Swelling at the incision site Call your doctor if you observe: Fever of 101 or Higher, Shortness of breath, Dizziness, Fainting spells, Chest pain, Increased palpitations (irregular heartbeat), Calf discomfort Home Medications: Medications to take at Discharge Amlodipine [Norvasc] 10 mg PO DAILY 04/10/15 Benazepril HCl [Lotensin] 20 mg PO BID 10/17/15 Clopidogrel Bisulfate [Plavix] 75 mg PO DAILY 10/17/15 Hydrochlorothiazide [Hctz] 25 mg PO DAILY 10/17/15 Acetaminophen [Tylenol Arthritis] 650 mg PO Q4H PRN PRN 08/28/18 Ascorbic Acid [Vitamin C] 500 mg PO DAILY@0808/28/18 Aspirin 325 mg PO DAILY@79908/28/18 Calcium Carb/Vitamin D [Caltrate-600 With Vit D Tab] 1 tab PO DAILY@0800 08/28/18 Glucosam/Rashaun-Msm1/C/Godfrey/Bosw [Osteo Bi-Flex Caplet] 1 tab PO DAILY 08/28/18 Multivit-Min/FA/Lycopen/Lutein [Adults 50 Plus Multivitamin Tb] 1 tab PO DAILY 08/28/18 [place]-3 Fatty Acids/Fish Oil [Cvs Fish Oil 1,200 mg Softgel] 1 cap PO BID 08/28/18 Atorvastatin Calcium [Lipitor] 80 mg PO QHS #30 tablet 09/01/18 Isosorbide Mononitrate [Imdur] 30 mg PO DAILY #30 tablet 09/01/18 Lisinopril [Zestril] 20 mg PO BID #60 tablet 09/01/18 Metoprolol Tartrate [Lopressor (beta darwin)] 25 mg PO BID #60 tablet 09/01/18 Nitroglycerin [Nitrostat] 0.4 mg SUBLINGUAL Q5M PRN #1 bottle 09/01/18 Following Prescrptions Were Given to Patient: Atorvastatin Calcium [Lipitor] 80 mg PO QHS #30 tablet Isosorbide Mononitrate [Imdur] 30 mg PO DAILY #30 tablet Nitroglycerin [Nitrostat] 0.4 mg SUBLINGUAL Q5M PRN #1 bottle PRN Reason: Cardiac/Chest Pain Lisinopril [Zestril] 20 mg PO BID #60 tablet Metoprolol Tartrate [Lopressor (beta darwin)] 25 mg PO BID #60 tablet Primary Care Physician: Adin Huerta MD [Primary Care Provider] - Please follow up with your Primary Care Physician in: 5-7 days Please Follow Up With: Giovani Alford MD When: ROLL FORMING SUPERVISOR or PA in Rocío's office in 2 weeks Patient Instructions: Tips for Quitting Smoking (Cardiovascular), Understanding Peripheral Artery Disease, Planning to Quit Smoking, Getting Support for Quitting Smoking Medical Necessity - Tobacco Use Smoking Status: Current every day smoker - 1 PPD Tobacco Use: Cigarettes Meaningful Use Info Meaningful Use Diagnoses (Choose all that apply): AMI - AMI Aspirin given w/in 24hrs of arrival?: Yes ASA at discharge?: Yes Statins at discharge?: Yes Quoc/ARB at discharge?: Yes Beta Darwin at discharge?: Yes Done w/ Acute SC measure.: Yes Code Visit Inpatient E AND M: 40475 Disch Hosp 09/01/18 8049 <Electronically signed by Rene Schulz DO> Date M [facility] Signature (if applicable): Date CC: Larissa Schulz; Giovani Alford MD; Adin Huerta MD Signed ECHOCARDIOGRAM COMPLETE Observed: 09/01/2018 Status: F Source: [place] 12:45 PM [facility] REPOSITORY [facility] Cardiovascular Services [address] [place] [address] Echo Complete 09/01/18 0808 MR#: [id number] Acct: [id number] Name: MAKI CUHRCH Rep #: [id number] : 1950 68 From: Giovani Alford MD Attending Dr: Larissa Schulz Status: DIS IN Ordering Dr: Natasha Rodriguez MD Date: 08/30/18 Location: ICU Sex: F C Admitted: 08/29/18 Reason For Study: chest pain Procedure This was a 2D Doppler, Color Flow transthoracic echocardiogram. Exam performed portable in ICU/CCU. Left Ventricle Normal LV size. Left ventricular systolic function is normal. The estimated ejection fraction is 60 %. Stage 1 diastolic dysfunction. No regional wall motion abnormalities noted. Right Ventricle Normal RV size. Normal systolic function. Atria The left atrium is mildly enlarged. Normal right atrium. Mitral Valve Normal mitral valve. Tricuspid Valve Normal tricuspid valve. Aortic Valve Trisinus/trileaflet aortic valve. Mild focal aortic valve calcification. Pulmonic Valve Normal pulmonic valve. Great Vessels Normal aortic root. The pulmonary artery is normal size. Normal inferior vena cava. Pericardium/Pleural No pericardial effusion. MMode/2D Measurements AND Calculations LVIDd: 5.1 cm IVSd: 0.92 cm Ao root diam: 3.2 cm LVIDs: 3.3 cm LVPWd: 1.0 cm RVDd: 3.0 cm FS: 36.1 % LAV(MOD-bp): 83.8 ml LA A4 area: 24.6 cm2 LA dimension(2D): 4.0 cm LAV(MOD-bp) Indexed: 42.7 ml/m2 LAV(MOD-sp2): 79.3 ml LAV(MOD-sp4): 85.4 ml RA A4 area: 15.3 cm2 Time Measurements MV dec time: 0.28 sec Doppler Measurements AND Calculations MV E max felton: 106.9 cm/sec Lat Peak E' Felton: 7.3 cm/sec Med Peak E' Felton: 8.9 cm/sec MV A max felton: 119.0 cm/sec E/E' lat: 14.7 E/E' med: 12.0 MV E/A: 0.90 Ao V2 max: 186.6 cm/sec LV V1 max: 104.6 cm/sec PA V2 max: 105.5 cm/sec Ao max P.9 mmHg LV V1 max P.4 mmHg Ao V2 mean: 130.9 cm/sec LV V1 mean P.7 mmHg Ao mean P.4 mmHg LV V1 mean: 78.9 cm/sec Ao V2 VTI: 42.0 cm LV V1 VTI: 27.4 cm Interpretation Summary Normal LV size. Left ventricular systolic function is normal. The estimated ejection fraction is 60 %. Stage 1 diastolic dysfunction. The left atrium is mildly enlarged. Mild focal aortic valve calcification. Ordering Physician: Natasha Rodriguez Referring Physician: Pantera Pizano Performed By: Josselyn Knight, RDCS, RVT 09/01/18 1245 Date Giovani Alford MD CC: Natasha Rodriguez MD; Larissa Schulz; Pantera Pizano MD; Adin Huerta MD Date Dictated: 09/01/18 0808 Date Transcribed: 09/01/18 124 Industrial Machine Operator: Signed DISCHARGE INSTRUCTION Observed: 09/01/2018 Status: F Source: [place] 8:41 AM [facility] REPOSITORY [facility] Medical Records Department [address] [facility] [place] [address] Instructions for Home/Discharge Instructions 09/01/18827 MR#: [id number] Acct: [id number] Name: MAKI CHURCH Rep #: [id number] : 1950 68 From: Rene Schulz DO PCP: Adin Huerta MD Status: ADM IN - Discharge Diagnoses Current Active Problems: Current Active and Chronic Problems NSTEMI (non-ST elevated myocardial infarction) (Acute) Chest pain (Acute) You will use the following diet at home:: Cardiac - carb controlled Your food should be the consistency of: Regular Your liquids should be the consistency of: Regular/Thin Discharge Activity: - - Try and work up to walking for 30 minutes at least 6 times a week. No hills for the next few weeks. May shower in (days): 1 Weight Bearing Status: Full weight bearing Lifting Restrictions: no more than 10 lbs Call your doctor if your incision/area has: Continuous Slow Oozing, Sudden Increased Bleeding, Increased Pain/ Swelling, Increased Redness, Foul Smelling Discharge, Swelling at the incision site Call your doctor if you observe: Fever of 101 or Higher, Shortness of breath, Dizziness, Fainting spells, Chest pain, Increased palpitations (irregular heartbeat), Calf discomfort Instructions: Tips for Quitting Smoking (Cardiovascular), Planning to Quit Smoking, Getting Support for Quitting Smoking, Understanding Peripheral Artery Disease Additional Instructions: You had a stent placed in the circumflex artery and the diagonal branch was dilated with a balloon but did not get a stent. There is still disease in the Left anterior descending artery and the right coronary artery and this will need to be addressed going forward.......you will most likely need more stents. In addition to coronary artery disease you also have peripheral vascular disease. This was obvious when the femoral artery in the right groin was accessed during the cardiac catheterization. You may need stents in your legs going forward. It is adviseable to quit smoking. There is a program for smoking cessation at the hospital and it is run by the respiratory therapists. You are no longer pre-diabetic you have diabetes mellitus type II. You should discuss treatment with your PCP. Your medications have changed to better protect your hard until you can have stents to the other arteries that are occluded. Please take your medications as instructed. Pending Tests on Discharge: ECHO report Allergies/Adverse Reactions: Allergies No Known Allergies Allergy (Verified 08/28/18 18:47) Medications to take at Discharge Amlodipine [Norvasc] 10 mg PO DAILY 04/10/15 Benazepril HCl [Lotensin] 20 mg PO BID 10/17/15 Clopidogrel Bisulfate [Plavix] 75 mg PO DAILY 10/17/15 Hydrochlorothiazide [Hctz] 25 mg PO DAILY 10/17/15 Acetaminophen [Tylenol Arthritis] 650 mg PO Q4H PRN PRN 08/28/18 Ascorbic Acid [Vitamin C] 500 mg PO DAILY@0808/28/18 Aspirin 325 mg PO DAILY@79908/28/18 Calcium Carb/Vitamin D [Caltrate-600 With Vit D Tab] 1 tab PO DAILY@79908/28/18 Glucosam/Rashaun-Msm1/C/Godfrey/Bosw [Osteo Bi-Flex Caplet] 1 tab PO DAILY 08/28/18 Multivit-Min/FA/Lycopen/Lutein [Adults 50 Plus Multivitamin Tb] 1 tab PO DAILY 08/28/18 [place]-3 Fatty Acids/Fish Oil [Cvs Fish Oil 1,200 mg Softgel] 1 cap PO BID 08/28/18 Atorvastatin Calcium [Lipitor] 80 mg PO QHS #30 tablet 09/01/18 Isosorbide Mononitrate [Imdur] 30 mg PO DAILY #30 tablet 09/01/18 Lisinopril [Zestril] 20 mg PO BID #60 tablet 09/01/18 Metoprolol Tartrate [Lopressor (beta darwin)] 25 mg PO BID #60 tablet 09/01/18 Nitroglycerin [Nitrostat] 0.4 mg SUBLINGUAL Q5M PRN #1 bottle 09/01/18 The following prescriptions were given: Atorvastatin Calcium [Lipitor] 80 mg PO QHS #30 tablet Isosorbide Mononitrate [Imdur] 30 mg PO DAILY #30 tablet Nitroglycerin [Nitrostat] 0.4 mg SUBLINGUAL Q5M PRN #1 bottle PRN Reason: Cardiac/Chest Pain Lisinopril [Zestril] 20 mg PO BID #60 tablet Metoprolol Tartrate [Lopressor (beta darwin)] 25 mg PO BID #60 tablet Primary Care Physician: Adin Huerta MD [Primary Care Provider] - Please follow up with your Primary Care Physician in: 5-7 days Test Results: Test results from this visit will be discussed in further detail at your follow-up appointment, if applicable. Please Follow Up With: Giovani Alford MD When: ROLL FORMING SUPERVISOR or PA in Rocío's office in 2 weeks 09/01/18 0841 <Electronically signed by Rene Schulz DO> Date Rene Schulz DO CC: Natasha Rodriguez MD; Giovani Alford MD; Adin Huerta MD CBC-COMPLETE BLOOD CNT Collected: 09/01/2018 Status: F Source: [place] NO DIFF 3:50 AM [facility] REPOSITORY TYPE CODE TESTS RESULT OUT OF RANGE REFERENCE UNITS LAB L100.1000 4.4-11.0 K/mm3 Normal WBC 5.3 LAB L100.1200 4.2-5.4 M/mm3 Normal RBC 4.46 LAB L100.1300 12.0-15.0 g/dl Normal HGB 13.8 LAB L100.1400 37-47 % Normal HCT 41.5 LAB L100.1500 81-99 fL Normal MCV 93.0 LAB L100.1600 27.0-32.0 pg Normal MCH 30.9 LAB L100.1700 32-36 g/gl Normal MCHC 33.3 LAB L100.1810 11.6-14.6 % Normal RDW CV 14.1 LAB L100.1820 35.1-43.9 fl High RDW SD 48.0 LAB L100.1900 150-450 K/mm3 Normal PLT 151 LAB L100.2000 6.2-12.0 fl Normal MPV 10.4 Performed By: #### L100.0500 #### [facility] [address], [address] BASIC METABOLIC Collected: 09/01/2018 Status: F Source: [place] PROFILE (BMP) 3:50 AM [facility] REPOSITORY TYPE CODE TESTS RESULT OUT OF RANGE REFERENCE UNITS LAB L501.0100 74-106 mg/dL Normal GLU 91 Result Comment: Please note revised GLUCOSE reference range effective 2017. LAB L501.1000 7-18 mg/dL Normal BUN 16 LAB L501.1100 0.55-1.02 mg/dL Normal CREAT,SERUM 0.77 Result Comment: The validity of the calculated GFR AND GFRAA in patients over 70 years has not been determined. Clinical correlation is essential. LAB L501.1110 >60 mL/min Normal EST GFR 80 Result Comment: Non- GFR Calc LAB L501.1115 >60 mL/min Normal EST GFR - AA 97 Result Comment: GFR Calc LAB L501.1255 ml/min Normal Estimated CRCL 39.75 LAB L501.1300 10-20 RATIO High BUN/CRE 20.8 LAB L501.2200 8.5-10 mg/dL Low .1 CA 8.0 LAB L501.5300 136-14 mmol/L Normal 5 NA 143 LAB L501.5600 3.5-5. mmol/L Normal 1 K 4.1 LAB L501.5900 98-107 mmol/L High CL 110 LAB L501.6100 21.0-3 mmol/L Normal 2.0 CO2 24.0 LAB L501.6200 5-15 Normal GAP 9 Performed By: #### L500.2500 #### [facility] [address] [place], [address] ACT ACTIVATED CLOTTING Collected: 08/31/2018 Status: F Source: [place] TIME 11:34 AM [facility] REPOSITORY TYPE CODE TESTS RESULT OUT OF RANGE REFERENCE UNITS LAB L9100.0100 74-137 sec Normal ACTk CLOT 136 TIME Performed By: #### L9100.0100 #### [facility] Point of Care [address] [place] [address] ACT ACTIVATED CLOTTING Collected: 08/31/2018 Status: F Source: [place] TIME 9:25 AM [facility] REPOSITORY TYPE CODE TESTS RESULT OUT OF RANGE REFERENCE UNITS LAB L9100.0100 74-137 sec High ACTk CLOT 175 TIME Performed By: #### L9100.0100 #### [facility] Point of Care [address] [place] [address] CBC-COMPLETE BLOOD CNT Collected: 08/31/2018 Status: F Source: [place] NO DIFF 3:54 AM [facility] REPOSITORY TYPE CODE TESTS RESULT OUT OF RANGE REFERENCE UNITS LAB L100.1000 4.4-11.0 K/mm3 Normal WBC 5.6 LAB L100.1200 4.2-5.4 M/mm3 Low RBC 4.11 LAB L100.1300 12.0-15.0 g/dl Normal HGB 13.0 LAB L100.1400 37-47 % Normal HCT 39.0 LAB L100.1500 81-99 fL Normal MCV 94.9 LAB L100.1600 27.0-32.0 pg Normal MCH 31.6 LAB L100.1700 32-36 g/gl Normal MCHC 33.3 LAB L100.1810 11.6-14.6 % Normal RDW CV 14.3 LAB L100.1820 35.1-43.9 fl High RDW SD 47.4 LAB L100.1900 150-450 K/mm3 Low PLT 125 LAB L100.2000 6.2-12.0 fl Normal MPV 11.4 Performed By: #### L100.0500 #### [facility] [address] [place], [address] PROTHROMBIN TIME W/INR Collected: 08/31/2018 Status: F Source: [place] 3:54 AM [facility] REPOSITORY TYPE CODE TESTS RESULT OUT OF RANGE REFERENCE UNITS LAB L300.4150 11.7-14.9 SECONDS Normal PROTIME 13.8 LAB L300.4200 Normal INR 1.1 Performed By: #### L300.3900, L300.4310 #### [facility] [address] [facility] [place], [address] PARTIAL THROMBOPLAST Collected: 08/31/2018 Status: F Source: [place] TIME 3:54 AM [facility] REPOSITORY TYPE CODE TESTS RESULT OUT OF RANGE REFERENCE UNITS LAB L300.4310 24.1-36.2 Seconds Normal PTT 31.4 Performed By: #### L300.3900, L300.4310 #### [facility] [address] [facility] [place], [address] BASIC METABOLIC Collected: 08/31/2018 Status: F Source: [place] PROFILE (BMP) 3:54 AM [facility] REPOSITORY TYPE CODE TESTS RESULT OUT OF RANGE REFERENCE UNITS LAB L501.0100 74-106 mg/dL High GLU 126 Result Comment: Fasting Glucose result greater than or equal to 126 mg/dL suggests DIABETES MELLITUS per A.D.A. criteria. Please note revised GLUCOSE reference range effective 2017. LAB L501.1000 7-18 mg/dL High BUN 20 LAB L501.1100 0.55-1.02 mg/dL Normal CREAT,SERUM 0.97 Result Comment: The validity of the calculated GFR AND GFRAA in patients over 70 years has not been determined. Clinical correlation is essential. LAB L501.1110 >60 mL/min Normal EST GFR 61 Result Comment: Non- GFR Calc LAB L501.1115 >60 mL/min Normal EST GFR - AA 74 Result Comment: GFR Calc LAB L501.1255 ml/min Normal Estimated CRCL 40.98 LAB L501.1300 10-20 RATIO High BUN/CRE 20.6 LAB L501.2200 8.5-10 mg/dL Low .1 CA 7.9 LAB L501.5300 136-14 mmol/L Normal 5 NA 141 LAB L501.5600 3.5-5. mmol/L Normal 1 K 4.1 LAB L501.5900 98-107 mmol/L High CL 109 LAB L501.6100 21.0-3 mmol/L Normal 2.0 CO2 22.0 LAB L501.6200 5-15 Normal GAP 10 Performed By: #### L500.2500 #### [facility] [address] [place], [address] BASIC METABOLIC Collected: 08/30/2018 Status: F Source: [place] PROFILE (BMP) 8:54 AM [facility] REPOSITORY TYPE CODE TESTS RESULT OUT OF RANGE REFERENCE UNITS LAB L501.0100 74-106 mg/dL High GLU 111 Result Comment: Fasting Glucose result from 100 to 125 mg/dL suggests IMPAIRED HOMEOSTASIS per A.D.A. criteria. Please note revised GLUCOSE reference range effective 2017. LAB L501.1000 7-18 mg/dL Normal BUN 18 LAB L501.1100 0.55-1.02 mg/dL Normal CREAT,SERUM 0.86 Result Comment: The validity of the calculated GFR AND GFRAA in patients over 70 years has not been determined. Clinical correlation is essential. LAB L501.1110 >60 mL/min Normal EST GFR 70 Result Comment: Non- GFR Calc LAB L501.1115 >60 mL/min Normal EST GFR - AA 85 Result Comment: GFR Calc LAB L501.1255 ml/min Normal Estimated CRCL 46.22 LAB L501.1300 10-20 RATIO High BUN/CRE 20.9 LAB L501.2200 8.5-10 mg/dL Low .1 CA 8.4 LAB L501.5300 136-14 mmol/L Normal 5 NA 137 LAB L501.5600 3.5-5. mmol/L Normal 1 K 4.2 LAB L501.5900 98-107 mmol/L Normal CL 106 LAB L501.6100 21.0-3 mmol/L Normal 2.0 CO2 24.0 LAB L501.6200 5-15 Normal GAP 7 Performed By: #### L500.2500, L501.5200 #### [facility] [address] [place], [place], [address] MAGNESIUM Collected: 08/30/2018 Status: F Source: [place] 8:54 AM [facility] REPOSITORY TYPE CODE TESTS RESULT OUT OF RANGE REFERENCE UNITS LAB L501.5200 1.6-2.6 mg/dL Normal MG 2.2 Performed By: #### L500.2500, L501.5200 #### [facility] [address] [facility] [id number] CBC-COMPLETE BLOOD CNT Collected: 08/30/2018 Status: F Source: [place] NO DIFF 8:54 AM [facility] REPOSITORY TYPE CODE TESTS RESULT OUT OF RANGE REFERENCE UNITS LAB L100.1000 4.4-11.0 K/mm3 Normal WBC 4.5 LAB L100.1200 4.2-5.4 M/mm3 Normal RBC 4.81 LAB L100.1300 12.0-15.0 g/dl High HGB 15.1 LAB L100.1400 37-47 % Normal HCT 44.7 LAB L100.1500 81-99 fL Normal MCV 92.9 LAB L100.1600 27.0-32.0 pg Normal MCH 31.4 LAB L100.1700 32-36 g/gl Normal MCHC 33.8 LAB L100.1810 11.6-14.6 % Normal RDW CV 14.3 LAB L100.1820 35.1-43.9 fl High RDW SD 48.1 LAB L100.1900 150-450 K/mm3 Normal PLT 151 LAB L100.2000 6.2-12.0 fl Normal MPV 10.5 Performed By: #### L100.0500 #### [facility] [address] [place], [place], [address] HEMOGLOBIN A1C Collected: 08/30/2018 Status: F Source: [place] 8:54 AM [facility] REPOSITORY TYPE CODE TESTS RESULT OUT OF RANGE REFERENCE UNITS LAB L501.9985 4.2-6.3 % High HGB A1C 6.9 Performed By: #### L501.9985 #### [facility] [address] [place], [address] HISTORY AND PHYSICAL Observed: 08/29/2018 Status: F Source: [place] EXAM 6:28 AM [facility] REPOSITORY [facility] Medical Records Department [address] [place] [address] History and Physical 08/28/182040 MR#: [id number] Acct: [id number] Name: MAKI CHURCH Rep #: [id number] : 1950 68 From: Pantera Pizano MD PCP: Adin Huerta MD Status: ADM NELIDA Y Location: [place] [address] Problem List (1) NSTEMI (non-ST elevated myocardial infarction) Status: Acute (2) Pre-diabetes Status: Chronic (3) Hyperlipidemia Status: Chronic (4) Hypertension Status: Chronic (5) Coronary artery disease Status: Chronic History of Present Illness Date of Admission: 08/28/18 Chief Complaint: chest Pain The patient is a 68 year old F with a significant history of hypertension; hyperlipidemia; prediabetes; CAD status post stents about 20 years ago who presented with gradual onset progressively worsening chest pain while she was lying down. Her chest pain started about 1 hour to 1/2 hours prior to presentation. Her chest pain span her entire chest. The chest pain radiated to her bilateral neck into bilateral arms. She described the pain as tingling and aching. She denies any nausea, vomiting, or diaphoresis. She thinks that her CAD about 20 years ago requiring stent was different from this 1. She reported at that time she had a more deeper pain. She has some old nitroglycerin tablets at home that she took but she had no relief from it. She thinks she did not have any relief from the nitroglycerin because it was old. The emergency squad gave him 3 baby aspirin and nitroglycerin which relieved her pain. At home patient takes Tylenol 324 mg daily and on the day of presentation he took the same dose in the morning and later received more aspirin from paramedics as stated above. Patient reported that the last couple of days she had noticed that her heart rate has been high. She reported that typically her heart rate is between 60-70s but recently her heart rate has been in the high 90s. At emergency department patient had sinus tachycardia with heart rate in the 110s. Patient reported that she was started on antibiotics for the last 3 days because of UTI. At emergency department patient received Lovenox therapeutic dose. In February of this year (2017) patient had unremarkable nuclear stress test. 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 Denies: Palpitations Respiratory: Denies: Cough, Shortness of breath at rest, Sputum production Gastrointestinal: Denies: Abdominal Pain, Nausea, Vomiting Genitourinary: Denies: Dysuria Musculoskeletal: Denies: Joint Pain, Joint Tenderness Skin: Denies: Rash, Wounds Neurological: Denies: Confusion, Focal weakness, Numbness Psychiatric: Denies: Anxiety, Depression, Homicidal Ideations, Suicidal Ideations Hematologic/ Lymphatic: Denies: Easy Bruising, Easy Bleeding VTE Information - Inpt Only VTE Present on Admission: No VTE Mechan Device Prophylaxis: None VTE Pharm Prophylaxis ordered?: No Reason prophylaxis not ordered:: Treatment Not Indicated - Received Lovenox therapeutic dose in the emergency department. Patient Problems: Active and Suspected Problems NSTEMI (non-ST elevated myocardial infarction) (Acute) - Physical Exam General: Alert, Oriented x3, Cooperative HEENT: Atraumatic, PERRLA, EOMI, Normocephalic Neck: Supple, No JVD, Negative Carotid Bruits Lungs: Diminished Cardiovascular: No murmurs, Tachycardic Abdomen: Bowel Sounds Present, Soft, Non Tender Extremities: No edema, Capillary Refill Less than 3 Seconds Skin: No rashes, No breakdown Musculoskeletal: No Tenderness to Palpation of Joints or Extremities Neurological: Neuro grossly intact Psych/Mental Status: Normal Affect, Appropriate Vital Signs Temp Pulse Resp BP Pulse Ox 98.4 F 97 21 H 158/79 H 97 08/28/18 18:48 08/28/18 20:19 08/28/18 20:19 08/28/18 20:19 08/28/18 20:19 Oxygen Flow Rate (L/min) 2 Oxygen Delivery Method Nasal Cannula Weight: 108.2 kg Body Mass Index (BMI) 46.5 Laboratory Tests Past 24 Hrs WBC 5.2 RBC 5.05 Hgb 16.0 H Assessment/Plan All Active Problems NSTEMI (non-ST elevated myocardial infarction) (Acute) The patient is a 68 year old F with a significant history of hypertension; hyperlipidemia; prediabetes; CAD status post stents about 20 years ago who presented with gradual onset progressively worsening chest pain while she was lying down and found to have elevated troponin on admission consented for likely NSTEMI. Probable NSTEMI MOHINI score of UA/ STEMI equal to five-points who translates to 26% all cause mortality risk, new or recurrent SC, or severe recurrent ischemia requiring urgent revascularization. Positive for MOHINI score were: age more than 65 years; more than 3 CAD risk factors (hypertension, hypercholesterolemia, current smoker); known CAD; aspirin use in past 7 days; and positive cardiac marker. Heart score of 6 points; moderate score. Risk of major adverse cardiac even of 12 to16.6%. Parameters of heart score was moderate suspicion; age more than 65 years; more than 3 risks factors or history of atherosclerotic disease (hypertension; hypercholesterolemia; obesity; current smoking; prior SC.) Admit to a monitored bed on PCU CXR independently reviewed confirms no acute cardiopulmonary pathology. But with chronic appearing increased interstitial lung markings. EKG independently reviewed confirms sinus tachycardia We will load with Plavix and Place Nitropaste on patient chest. Continue home aspirin 325 mg daily Continue home maintenance dose Plavix after Plavix loading.. Received Lovenox therapeutic dose x1 at emergency department. We will hold off further Lovenox until cardiology sees patient. On home low-dose simvastatin. Hold. High intensity Lipitor ordered. Serial cardiac enzymes trended up Stat EKG as needed for chest pain Due to high risk will consult cardiology for further risk stratification and management. Hypertension On admission blood pressure was not within goal Continue amlodipine, benazepril, clonidine and hydrochlorthiazide Trend blood pressures and adjust blood pressure medication as necessary Sinus tachycardia This could be due to her chest pain. Will check TSH to rule out hyperthyroidism.. Tobacco abuse Counseled Patient declined nicotine patch. Acute cystitis. Patient was on treatments with home Bactrim. She was prescribed 20 doses of Bactrim. So far she has taken 7 doses. Bactrim continued. History of bilateral leg swelling. Patient denies heart failure Home Lasix continued. Bilateral leg pain Home absorbine plus rapid relief continue. Tylenol as needed continued. DVT prophylaxis Not indicated as patient received therapeutic dose of Lovenox at emergency department. Patient with bilateral leg pain will not place SCD at this time. Evaluate for further need of chemoprophylaxis. Code Visit OBSV E AND M: 05602 Initial observation care L3 08/29/18 0628 <Electronically signed by Pantera Pizano MD> Date Pantera Pizano MD Cosigner Signature: Date (if applicable) CC: Pantera Pizano MD; Adin Huerta MD Signed CBC-COMPLETE BLOOD CNT Collected: 08/29/2018 Status: F Source: [place] NO DIFF 5:30 AM [facility] REPOSITORY TYPE CODE TESTS RESULT OUT OF RANGE REFERENCE UNITS LAB L100.1000 4.4-11.0 K/mm3 Normal WBC 5.0 LAB L100.1200 4.2-5.4 M/mm3 Normal RBC 4.55 LAB L100.1300 12.0-15.0 g/dl Normal HGB 14.2 LAB L100.1400 37-47 % Normal HCT 42.3 LAB L100.1500 81-99 fL Normal MCV 93.0 LAB L100.1600 27.0-32.0 pg Normal MCH 31.2 LAB L100.1700 32-36 g/gl Normal MCHC 33.6 LAB L100.1810 11.6-14.6 % Normal RDW CV 14.2 LAB L100.1820 35.1-43.9 fl High RDW SD 46.9 LAB L100.1900 150-450 K/mm3 Low PLT 141 LAB L100.2000 6.2-12.0 fl Normal MPV 11.3 Performed By: #### L100.0500 #### [facility] [address] [place], [address] PROTHROMBIN TIME W/INR Collected: 08/29/2018 Status: F Source: [place] 5:30 AM [facility] REPOSITORY TYPE CODE TESTS RESULT OUT OF RANGE REFERENCE UNITS LAB L300.4150 11.7-14.9 SECONDS High PROTIME 15.0 LAB L300.4200 Normal INR 1.2 Performed By: #### L300.3900, L300.4310 #### [facility] [address] [place], [address] PARTIAL THROMBOPLAST Collected: 08/29/2018 Status: F Source: [place] TIME 5:30 AM [facility] REPOSITORY TYPE CODE TESTS RESULT OUT OF REFERENCE UNITS RANGE LAB L300.4310 24.1-36.2 Seconds High PTT 42.5 Performed By: #### L300.3900, L300.4310 #### [facility] [address] [place], [address] BASIC METABOLIC Collected: 08/29/2018 Status: F Source: [place] PROFILE (BMP) 5:30 AM [facility] REPOSITORY TYPE CODE TESTS RESULT OUT OF RANGE REFERENCE UNITS LAB L501.0100 74-106 mg/dL High GLU 123 Result Comment: Fasting Glucose result from 100 to 125 mg/dL suggests IMPAIRED HOMEOSTASIS per A.D.A. criteria. Please note revised GLUCOSE reference range effective 2017. LAB L501.1000 7-18 mg/dL Normal BUN 15 LAB L501.1100 0.55-1.02 mg/dL Normal CREAT,SERUM 0.75 Result Comment: The validity of the calculated GFR AND GFRAA in patients over 70 years has not been determined. Clinical correlation is essential. LAB L501.1110 >60 mL/min Normal EST GFR 82 Result Comment: Non- GFR Calc LAB L501.1115 >60 mL/min Normal EST GFR - AA 100 Result Comment: GFR Calc LAB L501.1255 ml/min Normal Estimated CRCL 39.75 LAB L501.1300 10-20 RATIO Normal BUN/CRE 20.0 LAB L501.2200 8.5-10 mg/dL Low .1 CA 8.0 LAB L501.5300 136-14 mmol/L Normal 5 NA 141 LAB L501.5600 3.5-5. mmol/L Normal 1 K 3.6 LAB L501.5900 98-107 mmol/L High CL 108 LAB L501.6100 21.0-3 mmol/L Normal 2.0 CO2 24.0 LAB L501.6200 5-15 Normal GAP 9 Performed By: #### L500.2500, L500.4100 #### [facility] [address] [place], [address] LIPID PROFILE Collected: 08/29/2018 Status: F Source: [place] 5:30 AM [facility] REPOSITORY TYPE CODE TESTS RESULT OUT OF RANGE REFERENCE UNITS LAB L501.4900 200 mg/dL Normal CHOL 85 Result Comment: <200 mg/dL Desirable 200-240 mg/dL Borderline >240 mg/dL High Risk LAB L501.5000 mg/dL Normal TRIG 156 Result Comment: The drugs N-Acetylcysteine and Metamizole may falsely depress this assay. Serum Triglycerides Reference Interval Normal <150 mg/dL Borderline high 150 - 199 mg/dL High 200 - 499 mg/dL Very High > or = 500 mg/dL LAB L501.6400 mg/dL Low HDL 22 Result Comment: The drugs N-Acetylcysteine and Metamizole may falsely depress this assay. Reference Range HDL <40 mg/dL Low HDL Cholesterol HDL >or= 60 mg/dL High HDL Cholesterol LAB L501.6500 0-130 mg/dL Normal LDL 32 LAB L501.6600 5-40 mg/dL Normal VLDL 31 Performed By: #### L500.2500, L500.4100 #### [facility] [address] [place], [address] TROPONIN-I Collected: 08/29/2018 Status: F Source: [place] 1:05 AM [facility] REPOSITORY Order Comment: 'TROP' Serial specimen #1, #2 or #3: 3 TYPE CODE TESTS RESULT OUT OF RANGE REFERENCE UNITS LAB L501.4010 <0.045 ng/mL High 0.094 TROPONIN-I Result Comment: TROPONIN-I EXPECTED VALUES <0.045 Negative 0.045 - 0.590 Consistent with Cardiac Damage > OR = 0.600 Critical Value Not every elevated troponin is indicative of SC. These values should be used with clinical judgement in examining the patient's clinical picture for diagnosis. To establish a diagnosis of SC versus myocardial injury, there must be a demonstrated rise and/or fall in the troponin values, in addition to ischemic symptoms, EKG changes, new regional wall motion abnormality, and/or angiographical evidence. PLEASE NOTE: REFERENCE RANGES EDITED 18 Performed By: #### L501.4010 #### [facility] [address] [facility] [place], [address] EMERGENCY DEPARTMENT Observed: 08/29/2018 Status: F Source: [place] SUMMARY 12:06 AM [facility] REPOSITORY [facility] Medical Records Department [address] [facility] [address] [place] [address] Emergency Department Summary 08/28/182036 MR#: [id number] Acct: [id number] Name: MAKI CHURCH Rep #: [id number] : 1950 68 From: Sabrina Ludwig MD PCP: Adin Huerta MD Status: ADM NELIDA - ER Visit Summary Date of Service: 08/28/18 Chief Complaint: Chest pain History of Present Illness: The patient is a 68 F who presents via EMS with history of chest pain. Patient states that approximately an hour prior to EMS arrival she laid down to listen to some audiobooks and felt heaviness across her chest that radiated to both arms and into her neck. She denies shortness of breath. She got up and took 2 nitro tabs which she admits were quite old. This did not change her pain. EMS was called. EMS gave her aspirin along with 1 sublingual nitro and her pain resolved. Patient does state she was recently started on an antibiotic for UTI. She is been checking her vital signs this week and noted that her heart rate has been higher than normal, in the 90s instead of the 60s. Patient does have history of cardiac disease with 2 stents, hypertension, and high cholesterol. She continues to smoke a pack and a half a day. Physical Examination: Vital signs at triage are significant for heart rate of 118, otherwise unremarkable. Patient sitting upright in bed no acute distress. Heart rate is in the upper 90s at the time of my exam. Head neck examination is grossly unremarkable. Heart is regular rate and rhythm. Lung sounds are grossly clear. Abdomen is soft, obese, nontender. Extremity examination feels palpable distal pulses. Test Results: EKG is sinus tach at [address] change. Portable chest x-ray shows no acute findings. CBC is significant only for hemoglobin concentrated at 16. Chemistry studies significant only for glucose of 147. Troponin is minimally elevated at 0.052. Emergency Department Course and Treatment: Patient received aspirin and 1 sublingual nitro with EMS. She has remained pain-free throughout her ER stay. Patient did have a nuclear stress test in February of this year that was unremarkable. On repeat evaluation patient denies any chest pain and states overall she feels good at this time. She will be given a dose of Lovenox and admitted for further cycling of her cardiac enzymes and evaluation. MOHINI score: 5/7 Treatment Plan: [] Disposition: Admit Impression: Chest pain This note was generated with [employer] dictation software. It may contain incorrect words, spelling, and punctuation that were not noted in review of the chart prior to signing ED Disposition - Plan for ED Patient: Chief Complaint: Chest Pain Referrals: Adin Huerta MD [Primary Care Provider] - What to do if you have Problems For any increased pain, shortness of breath, bleeding, nausea or vomiting, chest pain, or any unexpected problems, contact your Primary Care Provider. Call [facility] ([phone]) or report to the closest Emergency Room. Call 911 if necessary. 08/29/18 0006 <Electronically signed by Sabrina Ludwig MD> Date Sabrina Ludwig MD Cosigner Signature (If Indicated): Date CC: Adin Huerta MD TROPONIN-I Collected: 08/28/2018 Status: F Source: [place] 9:45 PM [facility] REPOSITORY Order Comment: 'TROP' Serial specimen #1, #2 or #3: 2 TYPE CODE TESTS RESULT OUT OF RANGE REFERENCE UNITS LAB L501.4010 <0.045 ng/mL High 0.079 TROPONIN-I Result Comment: TROPONIN-I EXPECTED VALUES <0.045 Negative 0.045 - 0.590 Consistent with Cardiac Damage > OR = 0.600 Critical Value Not every elevated troponin is indicative of SC. These values should be used with clinical judgement in examining the patient's clinical picture for diagnosis. To establish a diagnosis of SC versus myocardial injury, there must be a demonstrated rise and/or fall in the troponin values, in addition to ischemic symptoms, EKG changes, new regional wall motion abnormality, and/or angiographical evidence. PLEASE NOTE: REFERENCE RANGES EDITED 18 Performed By: #### L501.4010 #### [facility] [address] [facility] [address] [place], [place], [address] THYROID STIM HORMONE Collected: 08/28/2018 Status: F Source: [place] (TSH) 9:45 PM [facility] REPOSITORY TYPE CODE TESTS RESULT OUT OF RANGE REFERENCE UNITS LAB L501.9520 0.358-3.74 uIU/mL Normal TSH 1.05 Performed By: #### L501.9520 #### [facility] [address] [place], [address] CHEST 1 VIEW Observed: 08/28/2018 Status: F Source: [place] (PORTABLE) 7:28 PM [facility] REPOSITORY [facility] Imaging Services [address] [place] [address] Chest 1 View (Portable) MR#: [id number] Acct: [id number] Name: CHURCHMAKI PARISI Rep #: [id number] : 1950 F 68 From: John Kitchen MD PCP: Adin Huerta MD Status: REG ER Study: Chest 1 View (Portable) Date of Exam: 08/28/18 Exam# [id number] Ordering Dr: Sabrina Ludwig MD STUDY: X-RAY CHEST REASON FOR EXAM: Female, 68 years old. CHEST PAIN TECHNIQUE: Single frontal view of the chest. COMPARISON: 7.26.15 FINDINGS: Chronic appearing increased interstitial lung markings. There is no demonstrated pleural abnormality. Normal heart size. Normal mediastinum and lv. Normal visualized pulmonary arteries. There is atherosclerotic calcification of the aortic arch with tortuosity. There are diffuse degenerative changes of the visualized thoracic spine. There is degenerative osteoarthritis of the bilateral shoulders. There is no demonstrated abnormality of the visualized soft tissue structures of the upper abdomen. RAD/Chest 1 View (Portable) IMPRESSION: There are no acute findings. Electronically Signed: John Kitchen MD at 20:17 EST , Service support , CC: Sabrina Ludwig MD; Adin Huerta MD Industrial Machine Operator: Signed CBC W/DIFF, AUTOMATED Collected: 08/28/2018 Status: F Source: [place] 6:45 PM [facility] REPOSITORY TYPE CODE TESTS RESULT OUT OF RANGE REFERENCE UNITS LAB L100.1000 4.4-11.0 K/mm3 Normal WBC 5.2 LAB L100.1200 4.2-5.4 M/mm3 Normal RBC 5.05 LAB L100.1300 12.0-15.0 g/dl High HGB 16.0 LAB L100.1400 37-47 % Normal HCT 46.6 LAB L100.1500 81-99 fL Normal MCV 92.3 LAB L100.1600 27.0-32.0 pg Normal MCH 31.7 LAB L100.1700 32-36 g/gl Normal MCHC 34.3 LAB L100.1810 11.6-14.6 % Normal RDW CV 14.0 LAB L100.1820 35.1-43.9 fl High RDW SD 47.1 LAB L100.1900 150-450 K/mm3 Normal PLT 170 LAB L100.2000 6.2-12.0 fl Normal MPV 11.0 LAB L100.2100 47-70 % Normal NEUT% 64.3 LAB L100.2200 19-41 % Low LY% 9.0 LAB L100.2300 0-10 % High MONO% 17.3 LAB L100.2400 0-5 % High EO% 9.0 LAB L100.2500 0-1 % Normal BASO% 0.2 LAB L100.2550 0.0-0.9 % Normal IM GRAN % 0.200 Result Comment: IG% - Immature Granulocytes (promyelocytes, myelocytes and metamyelocytes) > 1% indicates that a LEFT SHIFT is Present. LAB L100.2620 2.0-7.7 X10 3/uL Normal Absolute Neut 3.3 LAB L100.2720 0.83-4.51 X10 3/ul Low Absolute Lymph 0.47 LAB L100.4500 Normal SMEAR COMMENT SEE COMMENT Result Comment: LYMPHOPENIA NOTED LAB L100.5500 ADEQ PLT EST Normal ADEQUATE LAB L100.7300 ANISO RARE Normal LAB L100.7800 RARE Normal MACROCYTE Performed By: #### L100.0100 #### [facility] [address] [place] [place], [address] BASIC METABOLIC Collected: 08/28/2018 Status: F Source: [place] PROFILE (BMP) 6:45 PM [facility] REPOSITORY TYPE CODE TESTS RESULT OUT OF RANGE REFERENCE UNITS LAB L501.0100 74-106 mg/dL High GLU 147 Result Comment: Fasting Glucose result greater than or equal to 126 mg/dL suggests DIABETES MELLITUS per A.D.A. criteria. Please note revised GLUCOSE reference range effective 2017. LAB L501.1000 7-18 mg/dL High BUN 22 LAB L501.1100 0.55-1.02 mg/dL Normal CREAT,SERUM 0.92 Result Comment: The validity of the calculated GFR AND GFRAA in patients over 70 years has not been determined. Clinical correlation is essential. LAB L501.1110 >60 mL/min Normal EST GFR 65 Result Comment: Non- GFR Calc LAB L501.1115 >60 mL/min Normal EST GFR - AA 79 Result Comment: GFR Calc LAB L501.1255 ml/min Normal Estimated CRCL 43.21 LAB L501.1300 10-20 RATIO High BUN/CRE 23.9 LAB L501.2200 8.5-10 mg/dL Normal .1 CA 8.7 LAB L501.5300 136-14 mmol/L Normal 5 NA 137 LAB L501.5600 3.5-5. mmol/L Normal 1 K 3.7 Result Comment: Moderate Hemolysis, Result may be falsely increased. LAB L501.5900 98-107 mmol/L Normal CL 101 LAB L501.6100 21.0-32.0 mmol/L Normal CO2 25.0 LAB L501.6200 5-15 Normal GAP 11 Performed By: #### L500.2500, L501.4010 #### [facility] [address] [facility] [place], [place], [address] TROPONIN-I Collected: 08/28/2018 Status: F Source: [place] 6:45 PM [facility] REPOSITORY TYPE CODE TESTS RESULT OUT OF RANGE REFERENCE UNITS LAB L501.4010 <0.045 ng/mL High 0.052 TROPONIN-I Result Comment: TROPONIN-I EXPECTED VALUES <0.045 Negative 0.045 - 0.590 Consistent with Cardiac Damage > OR = 0.600 Critical Value Not every elevated troponin is indicative of SC. These values should be used with clinical judgement in examining the patient's clinical picture for diagnosis. To establish a diagnosis of SC versus myocardial injury, there must be a demonstrated rise and/or fall in the troponin values, in addition to ischemic symptoms, EKG changes, new regional wall motion abnormality, and/or angiographical evidence. PLEASE NOTE: REFERENCE RANGES EDITED 18 Performed By: #### L500.2500, L501.4010 #### [facility] [address] [place], [place], [address] Observed: 08/25/2018 Status: F Source: [facility] 10:00 AM [facility] REPOSITORY . MICRO - Microbiology PROCEDURE: Urine Culture [*1] SOURCE: Urine BODY SITE: COLLECTED DATE/TIME: 08/25/2018 10:00 EST RECEIVED DATE/TIME: 08/26/2018 15:57 EST START DATE/TIME: 08/26/2018 15:57 EST FREE TEXT SOURCE: FINAL REPORTS Final Report [] Verified Date/Time/Personnel: 08/28/2018 08:15 EST 50,000 organisms per mL Mixed without predominant isolate(s). Sensitivity Testing not indicated. Probably contamination. Repeat culture suggested. PRELIMINARY REPORTS Preliminary Report [] Verified Date/Time/Personnel: 08/27/2018 08:47 EST No growth to date Performing Locations *1: This test was performed at: [facility], [address] [place] [address], [address] [place] [address] Performed By: #### CUR #### [address] Collected: 08/19/2018 Status: F Source: [facility] 9:36 AM [facility] REPOSITORY TYPE CODE TESTS RESULT OUT OF REFERENCE UNITS RANGE LAB GLU(LOINC) 80-115 mg/dL Glucose High Level 126 LAB NA(LOINC) 136-145 mmol/L Sodium Level 140 LAB K(LOINC) 3.5-5.1 mmol/L Potassium Level 3.6 LAB CL(LOINC) 98-107 mmol/L Chloride 101 LAB CO2(LOINC) 23-31 mmol/L CO2 24 LAB EBAL(LOINC mEq/L ) Electrolyte Balance 15.0 LAB BUN(LOINC) 7-18 mg/dL BUN 18 LAB CRE(LOINC) 0.55-1.02 mg/dL Creatinine Lvl (s) 0.61 LAB BC(LOINC) 7-27 ratio High BUN/Creatinine 30 Ratio LAB CA(LOINC) 8.4-10.2 mg/dL Calcium Lvl 9.0 LAB PROT(LOINC 6.4-8.2 G/dL ) Total Protein 7.2 LAB ALB(LOINC) 3.4-4.8 G/dL Albumin Level 3.6 LAB GLB(LOINC) G/dL Globulin 3.6 LAB AG(LOINC) 1.1-2.5 ratio Low A/G Ratio 1.0 LAB BILT(LOINC 0.2-1.0 mg/dL ) Bili Total 0.6 LAB AP(LOINC) 40-135 U/L Alk Phos 82 LAB AST(LOINC) 10-40 U/L AST/SGOT 30 LAB ALT(LOINC) 10-35 U/L ALT/SGPT 30 Performed By: #### CMP, LIPID, GFR #### [place] [address] LIPID Collected: 08/19/2018 Status: F Source: [facility] 9:36 AM [facility] REPOSITORY TYPE CODE TESTS RESULT OUT OF REFERENCE UNITS RANGE LAB CHOL(LOINC 0-200 mg/dL ) Cholesterol 121 Result Comment: Cholesterol Reference Interval: Less than 200 Desirable 200-239 Borderline high risk 240 and above High risk LAB TRIG(LOINC) 0-150 mg/dL Triglycerides High 197 Result Comment: Triglyceride Reference Interval: Less than 150 Normal 150-199 Borderline high risk 200-499 High risk 500 or higher Very high risk LAB HD(LOINC) 40-60 mg/dL HDL Low Cholesterol 32 LAB LDL(LOINC) 0-130 mg/dL LDL Cholesterol 50 Performed By: #### CMP, LIPID, GFR #### [place] [address] .GFR Collected: 08/19/2018 Status: F [facility] 9[facility] AM [facility] REPOSITORY TYPE CODE TESTS RESULT OUT OF REFERENCE UNITS RANGE LAB GFRAA(LOINC ml/min/1.73 ) sqm GFR 119 [place] Result Comment: GFR Population mean for , Non- Americans Ages 20-29 = 116 mL/min/1.73 sq.m. Ages 30-39 = 107 mL/min/1.73 sq.m. Ages 40-49 = 99 mL/min/1.73 sq.m. Ages 50-59 = 93 mL/min/1.73 sq.m. Ages 60-69 = 85 mL/min/1.73 sq.m. Ages 70+ = 75 mL/min/1.73 sq.m. Chronic Kidney Disease: Less than 60 mL/min/1.73 square meters End Stage Renal Disease: Less than 15 mL/min/1.73 square meters LAB GFRNO(LOINC) ml/min/1.73sqm GFR Non- 98 Result Comment: GFR Population mean for , Non- Americans Ages 20-29 = 116 mL/min/1.73 sq.m. Ages 30-39 = 107 mL/min/1.73 sq.m. Ages 40-49 = 99 mL/min/1.73 sq.m. Ages 50-59 = 93 mL/min/1.73 sq.m. Ages 60-69 = 85 mL/min/1.73 sq.m. Ages 70+ = 75 mL/min/1.73 sq.m. Chronic Kidney Disease: Less than 60 mL/min/1.73 square meters End Stage Renal Disease: Less than 15 mL/min/1.73 square meters Performed By: #### CMP, LIPID, GFR #### [place] [address] STRESS REPORT Observed: 02/27/2018 Status: F Source: [place] 11:06 AM [facility] REPOSITORY [facility] Cardiovascular Services [address] [place] [address] MR#: [id number] Acct: [id number] Name: MAKI CHURCH Rep #: [id number] : 1950 67 From: Te Arroyo MD Primary Care: Adin Huerta MD Status: REG CLI Ordering Dr: Sex: F C Stress Test Report Date: 02/27/2018 Procedure: Pharmacologic stress nuclear imaging study Indications: Chest pain; CAD; PCI Consent: Per the patient Procedure: The patient underwent pharmacologic (Regadenoson) evaluation with a peak heart rate of 98 beats per minute (63 predicted maximal heart rate) and a peak blood pressure of 170/82 mmHg. The baseline ECG demonstrated normal sinus rhythm; nonspecific T wave abnormality. The peak pharmacologic ECG demonstrated no obvious ECG changes. There was an isolated PVC during recovery. There was no complaint of chest discomfort during pharmacologic infusion or recovery. The examination was discontinued secondary to completion of protocol. Impression: 1. Pharmacologic (Regadenoson) evaluation 2. Peak pharmacologic ECG with no obvious ECG changes. 3. There was an isolated PVC during recovery 4. Nuclear images pending Myocardial perfusion imaging study: Technique: The patient was injected with 14.5 millicuries of technetium 99m Cardiolite and subsequently rest SPECT Cardiolite nuclear imaging was obtained in the horizontal long, vertical long, and short axis views. The patient underwent pharmacologic (Regadenoson) evaluation with a peak heart rate of 98 beats per minute (63 % percent predicted maximal heart rate) and a peak blood pressure of 170/82 mmHg. The patient was injected with 44.2 millicuries of technetium 99m Cardiolite and subsequently stress SPECT Cardiolite nuclear imaging was obtained in the horizontal long, vertical long, and short axis views. A gated Cardiolite study at peak stress was obtained. Interpretation: Rest and stress SPECT Cardiolite nuclear imaging status post realignment, normalization, and attenuation correction demonstrate relative uniform tracer uptake and myocardial perfusion appearing within normal limits. There is end systolic thickening and brightening. The gated Cardiolite study demonstrates myocardial thickening and inward wall motion. The reported LVEF is 73 %. Impression: 1. Rest and stress SPECT Cardiolite nuclear imaging demonstrate relative uniform tracer uptake and myocardial perfusion appearing within normal limits. 2. The gated Cardiolite study reports an LVEF of 73 %. This note was generated with LP Aminaation software. It may contain incorrect words, spelling, and punctuation that were not noted in checking the note before signing. 02/27/18 1106 <Electronically signed by Te Arroyo MD> Date Te Arroyo MD CC: Adin Huerta MD Date Dictated: 02/27/18 1103 Date Transcribed: 02/27/181102 Industrial Machine Operator: PM Signed LIPID Collected: 02/11/2018 Status: F Source: [place] [facility] 9:01 AM [facility] REPOSITORY TYPE CODE TESTS RESULT OUT OF REFERENCE UNITS RANGE LAB CHOL(LOINC 131-200 mg/dL ) Low Cholesterol 122 Result Comment: Cholesterol Reference Interval: Less than 200 Desirable 200-239 Borderline high risk 240 and above High risk LAB TRIG(LOINC) 40-150 mg/dL Triglycerides High 215 Result Comment: Triglyceride Reference Interval: Less than 150 Normal 150-199 Borderline high risk 200-499 High risk 500 or higher Very high risk LAB HD(LOINC) 35-90 mg/dL HDL Low Cholesterol 31 Result Comment: HDL Reference Interval: Less than 40 Low - high risk 60 or above Optimal/lowers risk LAB LDL(LOINC) 0-130 mg/dL LDL Cholesterol 48 Result Comment: LDL is a calculated result and requires a 12-hr fast. LDL Reference Interval: Less than 100 Optimal 100-129 Near or above optimal 130-159 Borderline high risk 160-189 High risk 190 and above Very high risk Performed By: #### LIPID, CMP, GFR #### [place] [address] [place], [place] [address] CMP Collected: 02/11/2018 Status: F Source: [facility] 9:01 AM [facility] REPOSITORY TYPE CODE TESTS RESULT OUT OF REFERENCE UNITS RANGE LAB GLU(LOINC) 80-115 mg/dL Glucose High Level 147 LAB NA(LOINC) 136-146 mEq/L Sodium Level 136 LAB K(LOINC) 3.5-5.1 mEq/L Potassium Level 3.9 LAB CL(LOINC) 98-107 mEq/L Chloride 102 LAB CO2(LOINC) 23-31 mEq/L CO2 25 LAB EBAL(LOINC mEq/L ) Electrolyte Balance 9.0 LAB BUN(LOINC) 7.0-18.0 mg/dL BUN 15.1 LAB CRE(LOINC) 0.6-1.2 mg/dL Creatinine Lvl (s) 0.8 LAB BC(LOINC) 7-27 ratio BUN/Creatinine 19 Ratio LAB CA(LOINC) 8.4-10.2 mg/dL Calcium Lvl 9.5 LAB PROT(LOINC 6.0-8.3 G/dL ) Total Protein 7.0 LAB ALB(LOINC) 3.4-4.8 G/dL Albumin Level 4.1 LAB GLB(LOINC) G/dL Globulin 2.9 LAB AG(LOINC) 1.1-2.5 ratio A/G Ratio 1.4 LAB BILT(LOINC 0.2-1.0 mg/dL ) Bili Total 0.5 LAB AP(LOINC) 40-135 IU/L Alk Phos 99 LAB AST(LOINC) 10-40 IU/L AST/SGOT 25 LAB ALT(LOINC) 10-35 IU/L ALT/SGPT 27 Performed By: #### LIPID, CMP, GFR #### [place] [address] [place], [place] [address] .GFR Collected: 02/11/2018 Status: F Source: [facility] 9:01 AM [facility] REPOSITORY TYPE CODE TESTS RESULT OUT OF REFERENCE UNITS RANGE LAB GFRAA(LOINC ml/min/1.73 ) sqm GFR 91 [place] Result Comment: GFR Population mean for , Non- Americans Ages 20-29 = 116 mL/min/1.73 sq.m. Ages 30-39 = 107 mL/min/1.73 sq.m. Ages 40-49 = 99 mL/min/1.73 sq.m. Ages 50-59 = 93 mL/min/1.73 sq.m. Ages 60-69 = 85 mL/min/1.73 sq.m. Ages 70+ = 75 mL/min/1.73 sq.m. Chronic Kidney Disease: Less than 60 mL/min/1.73 square meters End Stage Renal Disease: Less than 15 mL/min/1.73 square meters LAB GFRNO(LOINC) ml/min/1.73sqm GFR Non- >60 Result Comment: GFR Population mean for , Non- Americans Ages 20-29 = 116 mL/min/1.73 sq.m. Ages 30-39 = 107 mL/min/1.73 sq.m. Ages 40-49 = 99 mL/min/1.73 sq.m. Ages 50-59 = 93 mL/min/1.73 sq.m. Ages 60-69 = 85 mL/min/1.73 sq.m. Ages 70+ = 75 mL/min/1.73 sq.m. Chronic Kidney Disease: Less than 60 mL/min/1.73 square meters End Stage Renal Disease: Less than 15 mL/min/1.73 square meters Performed By: #### LIPID, CMP, GFR #### [address] [address] ALLERGIES ALLERGIES DATE TYPE / CODE NAME / CODE REACTION SEVERITY SOURCE 09/23/2018 Drug No Known Unknown [facility] Allergy/4160 Allergies/F00 [facility] [address](SNOMED 0547483(RXNOR Repository CT) M) ENCOUNTERS ENCOUNTERS ADMIT/DISCHARGE ACCOUNT NUMBER ADMITTING ENCOUNTER LOCATION SOURCE CLASS 09/30/2018/10/01/19 [id number] Ambulatory Flash Flash 19 [facility] ding:CLSPRoo Repository m: [id number] 09/14/2018/09/14/20 [id number] Ambulatory BMSBuilding: Flash 18 BMS.[facility] Repository 08/29/2018/09/01/20 [id number] Agyepong, Inpatient [address] ding:ICURoom Repository : [id number]: 1 08/29/2018 [id number] Agyepong, Ambulatory BMSBuilding: Flash Mott BMS..[facility] Repository 08/29/2018 [id number] Agyepong, Ambulatory BMSBuilding: Flash [place]ott BMS.[facility], [facility]1983 Repository 08/29/2018 [id number] Agyepong, Ambulatory BMSBuilding: Flash [place]ott BMS.[facility], [facility]1983 Repository 08/29/2018 [id number] Agyepong, Ambulatory BMSBuilding: Flash [facility] BMS.[facility] Repository 08/29/2018 [id number] Agyepong, Ambulatory BMSBuilding: Flash [place]ott BMS.[facility], [facility] Repository 08/29/2018 [id number] Ambulatory BMSBuilding: [facility] Repository 08/29/2018/09/01/20 [id number] Ambulatory BMSBuilding: [address] Repository 08/28/2018 [id number] Agyepong, Ambulatory BMSBuilding: Flash [place] BMS.[facility], [facility] Repository 08/28/2018 [id number] Agyepong, Ambulatory BMSBuilding: Flash [place]ott BMS.[facility], [facility] Repository 08/28/2018 [id number] Ambulatory BMSBuilding: [facility] Repository 08/25/2018/08/29/20 [id number] Ambulatory BBuilding:DR Fink [address] [place] [address] Repository 08/19/2018/08/23/20 [id number] Ambulatory BBuilding:DR Fink 18 [facility] Repository 02/27/2018 [id number] Ambulatory [facility] ding:[facility] Repository 02/27/2018 [id number] Ambulatory BMSBuilding: [facility] Repository 02/17/2018 [id number] Ambulatory BBuilding:RA Danae Silverio [facility] Repository 02/11/2018/02/16/20 [id number] Ambulatory [address]:[facility] Repository PAYERS PAYERS ENCOUNTER GUARANTOR PAYER SUBSCRIBER SOURCE 09/30/2018 MAKI S Primary MAKI S Flash [id number] E Insurance:MEDICARE CUNNINGHAMDOB: Community [place] PART A [facility] [id number], [place] Number: Repository [address]Jvp: 330 [id number] [phone] (HP) Date:2018-09-16 09/30/2018 Secondary MAKI S [place] Insurance:MEDICAIDPol CUNNINGHAMDOB: [facility] icy Number: [id number] Hospital [id number] Repository Date:2018-09-16 09/30/2018 Tertiary NOT GIVENUNK [place] Insurance:SELF PAY [facility] Effective Repository Date:2018-09-16 09/14/2018 MAKI S Primary MAKI S Flash [id number] E Insurance:MEDICARE CUNNINGHAMDOB: Community [place] PART A [facility] [id number], [place] Number: Repository [address]Cph: 330 [id number] [phone] (HP) Date:2018-08-31 09/14/2018 Secondary MAKI S [place] Insurance:MEDICAIDPol CUNNINGHAMDOB: Community icy Number: [id number] Hospital [id number] Repository Date:2018-08-31 09/14/2018 Tertiary NOT GIVENUNK Flash Insurance:SELF PAY [facility] Number: Effective Repository Date:2018-09-14 08/29/2018 MAKI S Primary MAKI S Flash [id number] E Insurance:MEDICARE CUNNINGHAMDOB: Community [place] PART A [facility] [id number] Hospital [address], [place] Number: Repository [address]Vfq: 330 [id number] [phone] (HP) Date:2018-08-28 08/29/2018 Secondary MAKI S Flash Insurance:MEDICAIDPol CUNNINGHAMDOB: Community icy Number: [id number] Hospital [id number] Repository Date:2018-08-28 08/29/2018 Tertiary NOT GIVENUNK Flash Insurance:SELF PAY [facility] Number: Effective Repository Date:2018-08-28 08/29/2018 MAKI S Primary MAKI S [place] [id number] E Insurance:MEDICARE CUNNINGHAMDOB: Community [place] PART A [facility] [id number], [place] Number: Repository [address]Gio: 330 [id number] [phone] () Date:2018-08-28 08/29/2018 Secondary MAKI S Flash Insurance:MEDICAIDPol CUNNINGHAMDOB: Community icy Number: [id number] Hospital [id number] Repository Date:2018-08-28 08/29/2018 Tertiary NOT GIVENUNK Flash Insurance:SELF PAY [facility] Number: Effective Repository Date:2018-08-29 08/29/2018 MAKI S Primary MAKI S Flash [id number] E Insurance:MEDICARE CUNNINGHAMDOB: Community [place] [facility] [id number], [place] Number: Repository [address]Zum: 330 [id number] [phone] () Date:2018-08-28 08/29/2018 Secondary MAKI S Flash Insurance:MEDICAIDPol CUNNINGHAMDOB: Community icy Number: [id number] Hospital [id number] Repository Date:2018-08-28 08/29/2018 Tertiary NOT GIVENUNK [place] Insurance:SELF PAY [facility] Number: Effective Repository Date:2018-08-29 08/29/2018 MAKI S Primary MAKI S Flash [id number] E Insurance:MEDICARE CUNNINGHAMDOB: Community [place] A [facility] [id number], [place] Number: Repository [address]Ziq: 330 [id number] [phone] () Date:2018-08-28 08/29/2018 Secondary MAKI S Flash Insurance:MEDICAIDPol CUNNINGHAMDOB: Community icy Number: [id number] Hospital [id number] Repository Date:2018-08-28 08/29/2018 Tertiary NOT GIVENUNK Flash Insurance:SELF PAY [facility] Number: Effective Repository Date:2018-08-29 08/29/2018 MAKI S Primary MAKI S [place] [id number] E Insurance:MEDICARE CUNNINGHAMDOB: [place] PART A [facility] [id number] [place] Number: Repository [address]Ynb: 330 [id number] [phone] () Date:2018-08-28 08/29/2018 Secondary MAKI S Flash Insurance:MEDICAIDPol CUNNINGHAMDOB: Community icy Number: [id number] Hospital [id number] Repository Date:2018-08-28 08/29/2018 Tertiary NOT GIVENUNK Flash Insurance:SELF PAY [facility] Number: Effective Repository Date:2018-08-29 08/29/2018 MAKI S Primary MAKI S Flash [id number] E Insurance:MEDICARE CUNNINGHAMDOB: [place] PART A [facility] [id number] Number: Repository [address]Zka: ([phone] [id number] [phone] () Date:2018-08-28 08/29/2018 Secondary MAKI S Flash Insurance:MEDICAIDPol CUNNINGHAMDOB: Community icy Number: [id number] Hospital [id number] Repository Date:2018-08-28 08/29/2018 Tertiary NOT GIVENUNK [place] Insurance:SELF PAY [facility] Number: Effective Repository Date:2018-08-29 08/29/2018 MAKI S Primary MAKI S [place] [id number] E Insurance:MEDICARE CUNNINGHAMDOB: [place] PART A [facility] [id number] Number: Repository [address]Qmt: 330 [id number] [phone] () Date:2018-08-28 08/29/2018 Secondary MAKI S [place] Insurance:MEDICAIDPol CUNNINGHAMDOB: Community icy Number: [id number] Hospital [id number] Repository Date:2018-08-28 08/29/2018 Tertiary NOT GIVENUNK Flash Insurance:SELF PAY [facility] Number: Effective Repository Date:2018-08-29 08/29/2018 MAKI S Primary MAKI S Flash [id number] E Insurance:MEDICARE CUNNINGHAMDOB: [facility] [id number] Number: Repository [address]Krb: 330 [id number] [phone] () Date:2018-08-28 08/29/2018 Secondary MAKI S Flash Insurance:MEDICAIDPol CUNNINGHAMDOB: [facility] icy Number: [id number] Hospital [id number] Repository Date:2018-08-28 08/29/2018 Tertiary NOT GIVENUNK Flash Insurance:SELF PAY [facility]: Effective Repository Date:2018-08-29 08/28/2018 MAKI S Primary MAKI S Flash [id number] E Insurance:MEDICARE CUNNINGHAMDOB: [facility] PART A [facility] [id number] Number: Repository [address]Uby: 330 [id number] [phone] () Date:2018-08-28 08/28/2018 Secondary MAKI S [place] Insurance:MEDICAIDPol CUNNINGHAMDOB: Community icy Number: [id number] Hospital [id number] Repository Date:2018-08-28 08/28/2018 Tertiary NOT GIVENUNK Flash Insurance:SELF PAY [facility] Number: Effective Repository Date:2018-08-28 08/28/2018 MAKI S Primary MAKI S Flash [id number] E Insurance:MEDICARE CUNNINGHAMDOB: [facility] PART A olic [id number] Hospital [address], [place] Number: Repository [address]Tpd: [phone] [id number] [phone] () Date:2018-08-28 08/28/2018 Secondary MAKI S [place] Insurance:MEDICAIDPol [facility]: [facility] icy Number: [id number] Hospital [id number] Repository Date:2018-08-28 08/28/2018 Tertiary NOT GIVENUNK Flash Insurance:SELF PAY [facility] Number: Effective Repository Date:2018-08-28 08/28/2018 MAKI S Primary [facility] S [facility] Insurance:MEDICARE CUNNINGHAMDOB: [facility] PART A olic [id number] Hospital [place], [place] Number: Repository [address]Drt: (330) [id number] [phone] () Date:2018-08-28 08/28/2018 Secondary MAKI S [place] Insurance:MEDICAIDPol [facility]: [facility] icy Number: [id number] Hospital [id number] Repository Date:2018-08-28 08/28/2018 Tertiary NOT GIVENUNK [place] Insurance:SELF PAY [facility] Number: Effective Repository Date:2018-08-28 08/25/2018 MAKI S [facility]:MED[facility]ARE [facility]UNTEMPLE[facility] DEVELOPMENTAL CENTERHAMDOB: [facility] E PART B INSC[employer]icy [id number] Repository [facility] [address]: [address] [facility] [address] [place] [id number] [facility], [place] [address]Fku: (330) Date:2018-08-25 [address]Com: [id number] [phone] ()Tel: (000) Name:[facility] () (WP) Administrators LLCPO 000-0000 (WP) [address] [address]px[place], [place] [address]RJ: 08/19/2018 MAKI S Primary MAKI S [facility] CUNNINGHAMDOB: Insurance:MEDICARE CUNNINGHAMDOB: Foundation E PART B INSCOPolicy [id number] Repository [facility] [address] Number: [address] [facility] [address] [id number], [place] [address]Fkr: (330) Date:2018-08-19Tel: [id number] [phone] (HP)Tel: (000) Name:[facility] (HP) (WP) Administrators LLCPO 000-0000 (WP) [address] [place] [address]MX: 02/27/2018 Maki S Primary Maki S Flash [id number] E Insurance:MEDICARE CunninghamDOB: [facility] PART A [facility] [id number] Number: Repository [address]Smz: 330 [id number] [phone] () Date:2018-02-20 02/27/2018 Secondary Maki S [place] Insurance:MEDICAIDPol [facility] ic Number: [id number] Hospital [id number] Repository Date:2018-02-20 02/27/2018 Tertiary NOT GIVENUNK [place] Insurance:SELF PAY [facility] Number: Effective Repository Date:2018-02-20 02/27/2018 Maki S Primary Maki S [place] [id number] Insurance:MEDICARE CunninghamDOB: [facility] PART A [facility] [id number] [facility] [address], [place] Number: Repository [address]Vqu: 330 [id number] [phone] () Date:2018-02-20 02/27/2018 Secondary Maki S Flash Insurance:MEDICAIDPol [facility]: [facility] icy Number: [id number] Hospital [id number] Repository Date:2018-02-20 02/27/2018 Tertiary NOT GIVENUNK [place] Insurance:SELF PAY [facility] Number: Effective Repository Date:2018-02-27 02/17/2018 MAKI S Primary MAKI [facility]: Insurance:MEDICARE [facility]: [facility] E PART BPolicy Number: [id number] Repository [facility] [id number] E [facility] [address], [place] Date:2018-02-[place], [place] [address]Tod: [phone] [id number]: Name:[facility] [id number] (HP)Tel: (000) Administrators LLCPO (HP) (WP) [address] [address]Zkhurcfgc, 000-0000 (WP) [place] [address]PX: 02/11/2018 MAKI S Primary MAKI [facility]: [facility] E PART BPolicy Number: [id number] Repository [facility] [id number] E [facility] [address], [place] Date:2018-02-11[place], [place] [address]Pgw: [phone] [id number]: Name:[facility] [id number] (HP)Tel: (000) Administrators LLCPO (HP) (WP) [address] [address]Bitijrpcf, 000-0000 (WP) [place] [address]YD:
== END 2018-09-01 10:03 | disposition home or self-care (01) | DRG 247 ==
LOC: ED 19:43 → PCU 21:06 → ICU 08-31 09:01
PROVIDERS: Internal Medicine Cardiovascular Disease; Admitting Provider Hospitalist; Emergency Provider Emergency Medicine; Family Provider Family Medicine; PCP Family Medicine; Referring Provider Hospitalist; Visit Provider Internal Medicine
DX: I21.4 Non-ST elevation (NSTEMI) myocardial infarction (principal); I47.2 Ventricular tachycardia; Z68.41 Body mass index [BMI] 40.0-44.9, adult; N30.00 Acute cystitis without hematuria; E11.51 Type 2 diabetes mellitus with diabetic peripheral angiopathy without gangrene; E66.01 Morbid (severe) obesity due to excess calories; I10 Essential (primary) hypertension; E78.5 Hyperlipidemia, unspecified; F17.210 Nicotine dependence, cigarettes, uncomplicated; Z79.899 Other long term (current) drug therapy; Z95.5 Presence of coronary angioplasty implant and graft; Z79.82 Long term (current) use of aspirin; Z79.02 Long term (current) use of antithrombotics/antiplatelets; I25.110 Atherosclerotic heart disease of native coronary artery with unstable angina pectoris
CPT/HCPCS: 36415; 71045; 80048; 80061; 83036; 83735; 84443; 84484; 85025; 85027; 85347; 85610; 85730; 92921; 92928; 93005; 93306; 93458; 97530; 97802; 99152; 99153; 99284; J7030; Q9967; A4216; C1725; C1769; C1874; C1887; C9600

== ENCOUNTER 2018-09-30 10:42 | Day surgery (SDC) | payer MEDICARE, MEDICAID, SELFPAY ==
[2018-08-31 11:49] VITALS: BMI 43.9
[2018-09-14 11:05] VITALS: BMI 43.3
[2018-09-23 07:07] VITALS: BMI 43.3
[2018-09-30] VITALS (16 sets, daily range): BP systolic 115–150; BP diastolic 50–83; PULSE 82–109; RESP 12–21; TEMP 36.6; O2SAT 94–98; BMI 45.3
[2018-09-30 14:31] LABS: ACT Activated Clotting Time 169 sec (74-137)
--- NOTE | 2018-09-30 14:37 | CL.I_ITS ---
Patient Name: ESPERANZA CHURCH Study Date: 09/30/2018 Performing: Ht: 59.84 inches 152 cm : 1950 Wt: 222.67 lbs 101 kg Age: 68 Gender: female BSA: 1.95 PROCEDURE(S) PERFORMED CLINICAL PROFILE AND CO-MORBIDITIES Indications: New Onset Angina <= 2 months, Worsening Angina, Stable Known CAD Heart Failure: None Stress/Imaging Stress/Image Study Performed: No Angina Classification Anginal Classification w/in 2 Weeks: CCS III CAD Presentations: Unstable angina. Comorbidities/Risk Factors: Current/Recent Smoker (< 1year) Hypertension Dyslipidemia Prior MD Prior PCI Peripheral Arterial Disease CONCLUSIONS Successful PTCA/RUTHY mid LAD with a 3.0 x 24 Promus Synergy stent; 75%-->0%, no dissection. RECOMMENDATIONS Highly recommend quitting all tobacco products Follow up with primary benefits sales consultant Risk factor modification ASA Indefinitley Plavix for at least 12 months Routine post interventional care Refer for Outpatient Cardiac Rehab Manual sheath removal per protocol Follow up with Dr. Oates Adjust anti HTN meds. Refer to Dr Harrison for LE PVD. Manual sheath removal given severe PVD. Medical management of proximal/mid LAD at bifurcation of DIAG. DESCRIPTION OF PROCEDURE The patient arrived to the procedure lab. The risks and benefits of the procedure as well as a full d escription of our services here and current unavailability of surgical backup were fully explained to the patient and/or their significant other prior to the catheterization. The Timeout was completed, verifying the correct patient and procedure. The patient's procedural site was prepped and draped in the usual fashion. Local anesthetic was given subcutaneously to right groin region with Lidocaine 2% Using a modified Seldinger technique,arterial access was obtained via the right femoral artery, a 6Fr 55cm sheath was inserted. . EBU 3.75 Guide catheter was inserted and engaged into the LCA. BMW Guide wire was advanced to the LAD. Angiogram performed pre balloon dilatation. Emerge 2.00x12 Balloon catheter was inserted. PTCA balloon inflated at 10 atms for 14 secs. PTCA balloon inflated at 10 atms for 11 secs. PTCA balloon i nflated at 10 atms for 11 secs. PTCA balloon inflated at 10 atms for 12 secs. Angiogram performed pos t balloon dilatation. Synergy 3.00x20 Drug Eluting stent was inserted. Drug Eluting stent was removed intact, failed to cross lesion Synergy 3.00x24 Drug Eluting stent was inserted. Angiogram performed post stent deployment. Arterial sheath was exchanged for a 6 Fr Sheath. Contrast was injected through the sheath and the Right Iliac and Femoral artery were assessed for possible closure device. INTERVENTION INFORMATION LESION SITE: LAD (Mid) Lesion Complexity: High/C, lesion at bifurcation: No, thrombus present: No, lesion length: 24 mm, cul prit lesion: Yes Pre Stenosis: 75 % PROCEDURE: Drug Eluting Stent with pre dilatation. Post Stenosis: 0 % Post intervention MOHINI flow: 3 COMPLICATIONS No Complications PROCEDURE MEDICATIONS Fentanyl 25 mcg IV Versed 1 mg IV Fentanyl 25 mcg IV Fentanyl 25 mcg IV Oxygen: 2 L/min via nasal cannula Heparin 6000 unit(s) IV 09/30/2018 13:59:44 Nitro 100 mcg IC 09/30/2018 14:01:45 Nitro 300 mcg IC 09/30/2018 14:10:08 Nitro 200 mcg IC 09/30/2018 14:13:04 Nitro glycerin 25mg / 250ml D5W @ 10 mcg/min IV started 09/30/2018 14:13:24 Nitro 300 mcg IC 09/30/2018 14:17:26 Nitro glycerin 25mg / 250ml D5W @ 15 mcg/min (increased rate) 09/30/2018 14:17:41 SUMMARY OF HEMODYNAMIC DATA Time AIR REST ECG 11:10:26 AO 208/82 (131) SA 14:00:53 AO 162/83 (114) 14:02:42
--- NOTE | 2018-09-30 15:00 | EKG12_ITS ---
Test Reason : POST PCI Blood Pressure : / mmHG Vent. Rate : 103 BPM Atrial Rate : 103 BPM P-R Int : 196 ms QRS Dur : 086 ms QT Int : 370 ms P-R-T Axes : 075 -15 035 degrees QTc Int : 484 ms Sinus tachycardia with occasional Premature ventricular complexes Low voltage QRS Borderline ECG When compared with ECG of 01-SEP-2018 04:33, Premature ventricular complexes are now Present Vent. rate has increased BY 42 BPM Confirmed by JENA HENDRICKSON, MELODIE ([id number]), purchasing expeditor MAYITO GONZALEZ ([id number]) on 10/05/2018 9:55:59 AM Referred By: Joe Oates Confirmed By:MELODIE BELLA MD
[2018-09-30] MEDS: Nitroglycerin Infusion 250 ML 3 MG IV (15:30)
[2018-09-30] MEDS: LORazepam 1 MG Tablet PO (15:54)
[2018-09-30] MEDS: Morphine 2 MG/ML Syringe IV ×2 (15:55→20:14)
[2018-09-30] MEDS: 0.9% Normal Saline 1,000 ML 150 ML IV (15:59)
[2018-09-30] MEDS: 0.9% NaCl Peripheral Flush Adult/Peds IV (20:14)
[2018-09-30] MEDS: Lisinopril 20 MG Tablet PO (21:46)
[2018-09-30] MEDS: Atorvastatin Calcium 80 MG Tablet PO (21:47)
[2018-09-30] MEDS: Carvedilol 6.25 MG Tablet PO (21:47)
[2018-10-01] VITALS (42 sets, daily range): BP systolic 126–185; BP diastolic 60–83; PULSE 63–98; RESP 12–22; TEMP 36.6–37.1; O2SAT 95–100; BMI 43.3
[2018-10-01] MEDS: hydrALAZINE 20 MG/ML Vial 10 MG IV (02:37)
[2018-10-01] MEDS: 0.9% NaCl Peripheral Flush Adult/Peds IV (02:41)
[2018-10-01 04:21] LABS: Hematocrit 43.7 % (37-47); Hemoglobin 14.1 g/dl (12.0-15.0); Mean Corp Hgb Conc 32.3 g/gl (32-36); Mean Corpuscular Hgb 31.3 pg (27.0-32.0); Mean Corpuscular Volume 97.1 fL (81-99); Mean Platelet Vol. 11.1 fl (6.2-12.0); Platelet Count 183 K/mm3 (150-450); RBC Distribution Width CV 14.9 % (11.6-14.6); RBC Distribution Width SD 52.6 fl (35.1-43.9); White Blood Count 9.2 K/mm3 (4.4-11.0)
[2018-10-01 04:33] LABS: Scan Indicated on CBC? Y/N NO
[2018-10-01 04:48] LABS: Anion Gap 8 (5-15); BUN 16 mg/dL (7-18); Calcium,Total 8.5 mg/dL (8.5-10.1); Chloride 109 mmol/L (98-107); Creatinine, Serum 0.59 mg/dL (0.55-1.02); EST Glomerular Filtration Rate 108 mL/min (>60); Est Glom Filt Rate - Afr Amer 131 mL/min (>60); Estimated Creatinine Clearance 39.75 ml/min; Glucose 124 mg/dL (74-106); Potassium 5.1 mmol/L (3.5-5.1); Sodium Level 143 mmol/L (136-145)
[2018-10-01] MEDS: hydroCHLOROthiazide 25 MG Tablet PO (06:13)
[2018-10-01] MEDS: amLODIPine 10 MG Tablet PO (06:13)
[2018-10-01] MEDS: Isosorbide Mononitrate 60 MG Tablet PO (06:13)
[2018-10-01] MEDS: Carvedilol 6.25 MG Tablet PO (06:13)
[2018-10-01] MEDS: Lisinopril 20 MG Tablet PO (06:13)
[2018-10-01] MEDS: Clopidogrel Bisulfate 75 MG Tablet PO (07:51)
[2018-10-01] MEDS: Ascorbic Acid 500 MG Tablet PO (07:51)
[2018-10-01] MEDS: Aspirin 325 MG Tablet PO (07:51)
[2018-10-01] MEDS: Multivitamins,Ther W-Minerals Tablet 1 TABLET PO (07:51)
[2018-10-01] MEDS: Calcium Carb/Vitamin D 1 TABLET Tablet PO (07:52)
--- NOTE | 2018-10-01 08:18 | CRPHASE1_ITS ---
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 External:: Giovani Alford PCP:: Adin Zaragoza Risk Factors/Lifestyle Smoking Status: Current every day smoker - I PPD FOR 50 YEARS Hx Hypertension: Yes Hx Diabetes Mellitus Type 2: Yes - PT DECLINES BEING A DIABETIC Hx Metabolic Disorders: Yes Hx Dyslipidemia: Yes Hx Obesity: Yes Height: 5 ft Weight:: 222 lb BMI: 43.3 Risk Factor for Sedentary Lifestyle: Highest Risk Family History: Family History (Last Updated 09/14/18 @ 11:17 by Taina Shah) Brother Cancer Past Cardiac Illness: Arrhythmias, Coronary Artery Disease, Previous PCI w/Stent Phase I Education Given On:: [place], Nutrition, Antiplatelet medication, CHF, Smoking cessation, Diabetes - Type I, Diabetes - Type II Issues Affecting Care:: Physical Medical/Surgical History Valve Disease/Replacement:: No Pulmonary:: Yes - COPD COPD:: Yes Diabetes Type II:: Yes - PT DENIES Hypertension:: Yes Dyslipidemia:: Yes Arrhythmias:: Yes - HX OF V TACH? PVD:: Yes PTCA:: Yes ICD:: No Pacemaker:: No Orthopedic:: Yes - USES WALKER Discharge/Home/Social Eval Discharge Disposition: Home - LIVES ALONE, DOES NOT DRIVE
--- NOTE | 2018-10-01 08:20 | CRPH1.INSTRU ---
General Education CAD and cardiac anatomy and function:: Not instructed Explanation of diagnoses and procedures:: Not instructed Sign/Symptoms of [place]:: Not instructed Antiplatelet therapy: Not instructed Proper use of NTG-SL: Not instructed Emergency procedures and activation of EMS: Not instructed Compliance of all prescribed medications: Not instructed Smoking Patient Nicotine/Smoking Risk Factors Are:: Cigarettes - STATES SHE SMOKES 1 PPD FOR PAST 50 YEARS Recommendations Include:: Participation in a smoking cessation program Nicotine/Smoking Response Code:: Needs reinforcement Dyslipidemia Patient Dyslipidemia Risk Factors Are:: Total Cholesterol Dyslipidemia Response Code:: Not instructed Overweight/Obesity Patient Overweight/Obesity Risk Factors Are:: Obesity - > or = 30 Overweight/Obesity:: Not instructed Hypertension Hypertension:: Not instructed Heart Disease Patient Heart Disease Risk Factors Are:: Previous cardiac event Heart Disease Response Code:: Not instructed Diabetes Diabetes:: Not instructed - PT DENIES BEING A TYPE II DIAB Metabolic Syndrome Patient Metabolic Syndrome Risk Factors Are [3 of 5]:: Waist circumference > 35 [female] or 40 [male], Hypertension Metabolic Syndrome Response Code:: Needs reinforcement, Not instructed Sedentary Patient Sedentary Risk Factors Are:: Lack of regular exercise Stress Stress Response Code:: Not instructed
--- NOTE | 2018-10-01 08:23 | CRPH1.INST_ITS ---
General Education CAD and cardiac anatomy and function:: Not instructed Explanation of diagnoses and procedures:: Not instructed Sign/Symptoms of [place]:: Not instructed Antiplatelet therapy: Not instructed Proper use of NTG-SL: Not instructed Emergency procedures and activation of EMS: Not instructed Compliance of all prescribed medications: Not instructed Smoking Patient Nicotine/Smoking Risk Factors Are:: Cigarettes - STATES SHE SMOKES 1 PPD FOR PAST 50 YEARS Recommendations Include:: Participation in a smoking cessation program Nicotine/Smoking Response Code:: Needs reinforcement Dyslipidemia Patient Dyslipidemia Risk Factors Are:: Total Cholesterol Dyslipidemia Response Code:: Not instructed Overweight/Obesity Patient Overweight/Obesity Risk Factors Are:: Obesity - > or = 30 Overweight/Obesity:: Not instructed Hypertension Hypertension:: Not instructed Heart Disease Patient Heart Disease Risk Factors Are:: Previous cardiac event Heart Disease Response Code:: Not instructed Diabetes Diabetes:: Not instructed - PT DENIES BEING A TYPE II DIAB Metabolic Syndrome Patient Metabolic Syndrome Risk Factors Are [3 of 5]:: Waist circumference > 35 [female] or 40 [male], Hypertension Metabolic Syndrome Response Code:: Needs reinforcement, Not instructed Sedentary Patient Sedentary Risk Factors Are:: Lack of regular exercise Stress Stress Response Code:: Not instructed
--- NOTE | 2018-10-01 09:07 | PCM.DC.CCA ---
Discharge Diet: No Restrictions - You may continue your normal diet. Discharge Activity: Return to Normal Activity May resume sexual activity in: 1 week - if no groin problems occur. Lifting Restrictions: 10 pounds and also avoid any pushing or pulling for 3 days after your test. Call your doctor if your incision/area has: Increased Pain/ Swelling, Increased Redness, Foul Smelling Discharge, Swelling at the incision site Call your doctor if you observe: Fever of 101 or Higher Remove Dressing in (days):: 1 Additional Dressing/Incision Instructions:: Keep the dressing (bandage) on until the next morning. You may then shower, but do not take a tub bath for 5 days after your test. It is normal to have some tenderness and discomfort at the puncture site. Sometimes bruising also occurs. However, if pain, numbness, or coldness occurs below the puncture site (in your leg, toes, arms or fingers) call your doctor at once. You may have a small, marble sized knot at the puncture site. This is normal. Do not rub it. It will go away in 4-6 weeks. Bleeding can occur from the area where the puncture was done. Blood may spurt or drip from the site. If blood spurts, apply pressure right away to stop bleeding and call 911. Although rare, bleeding into the tissue (hematoma) can also occur. If this happens, a large, firm area goose egg under the skin will appear. If any of these occur, lie down as flat as you can and have someone apply firm pressure to the cath site with a gauze pad or a clean washcloth for 10-15 minutes. Call 911 or go to the Emergency Department. Additional Instructions: You need to stay on your Plavix for at least one year before it may be stopped. We switched your metoprolol to Coreg. [facility] This medication is also taken twice a day. At your F/U appt we will discuss cardiac rehab further Allergies/Adverse Reactions: Allergies No Known Allergies Allergy (Verified 09/23/18 07:31) Medications to take at Discharge RX: Amlodipine [Norvasc] 10 mg PO DAILY 04/10/15 RX: Clopidogrel Bisulfate [Plavix] 75 mg PO DAILY 10/17/15 RX: Hydrochlorothiazide [Hctz] 25 mg PO DAILY 10/17/15 RX: Acetaminophen [Tylenol Arthritis] 650 mg PO Q4H PRN PRN 08/28/18 RX: Ascorbic Acid [Vitamin C] 500 mg PO DAILY@0800 08/28/18 RX: Aspirin 325 mg PO DAILY@0800 08/28/18 RX: Calcium Carb/Vitamin D [Caltrate-600 With Vit D Tab] 1 tab PO DAILY@0800 08/28/18 RX: Glucosam/Rashaun-Msm1/C/Godfrey/Bosw [Osteo Bi-Flex Caplet] 1 tab PO DAILY 08/28/18 RX: Multivit-Min/FA/Lycopen/Lutein [Adults 50 Plus Multivitamin Tb] 1 tab PO DAILY 08/28/18 RX: [place]-3 Fatty Acids/Fish Oil [[facility] Fish Oil 1,200 mg Softgel] 1 cap PO BID 08/28/18 RX: Nitroglycerin [Nitrostat] 0.4 mg SUBLINGUAL Q5M PRN #1 bottle 09/01/18 atorvastatin 80 mg tablet 80 mg PO QHS #30 tab 09/14/18 isosorbide mononitrate ER 30 mg tablet,extended release 24 hr 30 mg PO DAILY #30 tab 09/14/18 lisinopril 20 mg tablet 20 mg PO BID #60 tab 09/14/18 RX: Carvedilol [Coreg (Beta Darwin)] 6.25 mg PO BID #60 tablet 10/01/18 The following prescriptions were given: RX: Carvedilol [Coreg (Beta Darwin)] 6.25 mg PO BID #60 tablet Primary Care Physician: Adin Zaragoza MD [Primary Care Provider] - Test Results: Test results from this visit will be discussed in further detail at your follow-up appointment, if applicable. Please Follow Up With: Will Smyth NP-C - call the office if you need the time, this was schedule prior to your cath When: 10/12 Cardiac Rehabilitation Info Cardiac Rehabilitation Program Information: Cardiac Rehabilitation is important for patients like you who are recovering from a heart problem. Cardiac rehabilitation programs are recognized as integral to the continued care of the patient with coronary heart disease. The cardiac rehabilitation program is designed to optimize a patient's physical, psychological, and social functioning. Health resident care director work in cardiac rehabilitation programs and assist you with getting the treatments you need to get stronger and healthier - like exercise, healthy eating habits, and medications. Cardiac rehabilitation has been show to help people with heart problems live longer and have better life enjoyment than people who do not go to cardiac rehabilitation. Please contact the Cardiac Rehabilitation Program at [facility] at in two weeks if you have not heard from them.
--- NOTE | 2018-10-01 09:10 | DCINST_ITS ---
Discharge Diet: No Restrictions - You may continue your normal diet. Discharge Activity: Return to Normal Activity May resume sexual activity in: 1 week - if no groin problems occur. Lifting Restrictions: 10 pounds and also avoid any pushing or pulling for 3 days after your test. Call your doctor if your incision/area has: Increased Pain/ Swelling, Increased Redness, Foul Smelling Discharge, Swelling at the incision site Call your doctor if you observe: Fever of 101 or Higher Remove Dressing in (days):: 1 Additional Dressing/Incision Instructions:: Keep the dressing (bandage) on until the next morning. You may then shower, but do not take a tub bath for 5 days after your test. It is normal to have some tenderness and discomfort at the puncture site. Sometimes bruising also occurs. However, if pain, numbness, or coldness occurs below the puncture site (in your leg, toes, arms or fingers) call your doctor at once. You may have a small, marble sized knot at the puncture site. This is normal. Do not rub it. It will go away in 4-6 weeks. Bleeding can occur from the area where the puncture was done. Blood may spurt or drip from the site. If blood spurts, apply pressure right away to stop bleeding and call 911. Although rare, bleeding into the tissue (hematoma) can also occur. If this happens, a large, firm area goose egg under the skin will appear. If any of these occur, lie down as flat as you can and have someone apply firm pressure to the cath site with a gauze pad or a clean washcloth for 10-15 minutes. Call 911 or go to the Emergency Department. Additional Instructions: You need to stay on your Plavix for at least one year before it may be stopped. We switched your metoprolol to Coreg. A new Rx was sent to [facility]. This medi cation is also taken twice a day. At your F/U appt we will discuss cardiac rehab further Allergies/Adverse Reactions: Allergies No Known Allergies Allergy (Verified 09/23/18 07:31) Medications to take at Discharge RX: Amlodipine [Norvasc] 10 mg PO DAILY 04/10/15 RX: Clopidogrel Bisulfate [Plavix] 75 mg PO DAILY 10/17/15 RX: Hydrochlorothiazide [Hctz] 25 mg PO DAILY 10/17/15 RX: Acetaminophen [Tylenol Arthritis] 650 mg PO Q4H PRN PRN 08/28/18 RX: Ascorbic Acid [Vitamin C] 500 mg PO DAILY@0800 08/28/18 RX: Aspirin 325 mg PO DAILY@0800 08/28/18 RX: Calcium Carb/Vitamin D [Caltrate-600 With Vit D Tab] 1 tab PO DAILY@0800 08/28/18 RX: Glucosam/Rashaun-Msm1/C/Godfrey/Bosw [Osteo Bi-Flex Caplet] 1 tab PO DAILY 08/28/18 RX: Multivit-Min/FA/Lycopen/Lutein [Adults 50 Plus Multivitamin Tb] 1 tab PO DAILY 08/28/18 RX: [place]-3 Fatty Acids/Fish Oil [[facility]vs Fish Oil 1,200 mg Softgel] 1 cap PO BID 08/28/18 RX: Nitroglycerin [Nitrostat] 0.4 mg SUBLINGUAL Q5M PRN #1 bottle 09/01/18 atorvastatin 80 mg tablet 80 mg PO QHS #30 tab 09/14/18 isosorbide mononitrate ER 30 mg tablet,extended release 24 hr 30 mg PO DAILY #30 tab 09/14/18 lisinopril 20 mg tablet 20 mg PO BID #60 tab 09/14/18 RX: Carvedilol [Coreg (Beta Darwin)] 6.25 mg PO BID #60 tablet 10/01/18 The following prescriptions were given: RX: Carvedilol [Coreg (Beta Darwin)] 6.25 mg PO BID #60 tablet Primary Care Physician: Adin Zaragoza MD [Primary Care Provider] - Test Results: Test results from this visit will be discussed in further detail at your follow- up appointment, if applicable. Please Follow Up With: Will Smyth NP-C - call the office if you need the time, this was schedule prior to your cath When: 10/12 Cardiac Rehabilitation Info Cardiac Rehabilitation Program Information: Cardiac Rehabilitation is important for patients like you who are recovering from a heart problem. Cardiac rehabilitation programs are recognized as integral to the continued care of the patient with coronary heart disease. The cardiac rehabilitation program is designed to optimize a patient's physical, psychological, and social functioning. Health healthcare network pricing consultant work in cardiac rehabilitation programs and assist you with getting the treatments you need to get stronger and healthier - like exercise, healthy eating habits, and medications. Cardiac rehabilitation has been show to help people with heart problems live longer and have better life enjoyment than people who do not go to cardiac rehabilitation. Please contact the Cardiac Rehabilitation Program at [facility] at in two weeks if you have not heard from them.
--- NOTE | 2018-10-01 10:00 | EKG12_ITS ---
Test Reason : AM EKG Blood Pressure : / mmHG Vent. Rate : 077 BPM Atrial Rate : 077 BPM P-R Int : 148 ms QRS Dur : 092 ms QT Int : 440 ms P-R-T Axes : 020 -16 -17 degrees QTc Int : 497 ms Normal sinus rhythm Normal ECG When compared with ECG of 30-SEP-2018 15:34, MANUAL COMPARISON REQUIRED, DATA IS UNCONFIRMED Confirmed by JENA HENDRICKSON, MELODIE ([id number]), commissioning editor MAYITO GONZALEZ ([id number]) on 10/05/2018 9:55:26 AM Referred By: Joe Oates Confirmed By:MELODIE BELLA MD
--- OUTSIDE RECORDS SUMMARY | 2018-12-05 05:57 | XMS RPT_ITS ---
:1950 Author Organization OHIP Support Name Relationship Address Phone R Unavailable Unavailable Unavailable RADHA WILLIS Unavailable Unavailable + [place] R Unavailable Unavailable Unavailable R Unavailable Unavailable Unavailable HAVEN, DRE Unavailable [address] + [place] [address] R Unavailable Unavailable Unavailable HAVEN, DRE Unavailable [address] + [place] [address] R Unavailable Unavailable Unavailable R Unavailable Unavailable Unavailable R Unavailable Unavailable Unavailable R Unavailable Unavailable Unavailable R Unavailable Unavailable Unavailable HAVEN, DRE Unavailable [address] + [place] [address] R Unavailable Unavailable Unavailable R Unavailable Unavailable [...] [address] + [place] [address] R Unavailable Unavailable Unavailable D Unavailable Unavailable Unavailable HAVEN, DRE Unavailable [address] + [place] [address] NONE Unavailable Unavailable Unavailable NONE Unavailable Unavailable [...] HUERTA MD Primary Care Unavailable ADIN HUERTA Primary Care Unavailable Pantera Pizano Admitting Unavailable Pantera Pizano Referring Unavailable Natasha Rodriguez Consulting Unavailable Larissa Schulz Attending Unavailable Agyepong, Pantera Admitting Unavailable Agyepong, Pantera Attending Unavailable Agyepong, Pantera Referring Unavailable [facility] Unavailable Agyepong, Pantera Consulting Unavailable Agyepong, Pantera Admitting Unavailable Agyepong, Pantera Referring Unavailable [facility] Unavailable Michael, Natasha Consulting Unavailable Sementi, Larissa Attending Unavailable Sementi, Larissa Consulting Unavailable Agyepong, Pantera Admitting Unavailable Michael, Natasha Attending Unavailable Agyepong, Pantera Referring Unavailable [facility] Unavailable Michael, Natasha Consulting Unavailable Sementi, Larissa Consulting Unavailable Agyepong, Pantera Admitting Unavailable Sementi, Larissa Attending Unavailable Agyepong, Pantera Referring Unavailable [facility] Unavailable Michael, Natasha Consulting Unavailable Sementi, Larissa Consulting Unavailable Sementi, Larissa Attending Unavailable Agyepong, Pantera Admitting Unavailable Agyepong, Pantera Referring Unavailable [facility] Unavailable Michael, Natasha Consulting Unavailable Sementi, Larissa Consulting Unavailable ADIN HUERTA Attending Unavailable HUERTAADIN Referring Unavailable [facility] Unavailable Agyepong, Pantera Admitting Unavailable [place], Giovani Attending Unavailable Agyepong, Pantera Referring Unavailable [facility] Unavailable Michael, Natasha Consulting Unavailable Sementi, Larissa Consulting Unavailable Agyepong, Pantera Admitting Unavailable Sementi, Larissa Attending Unavailable Agyepong, Pantera Referring Unavailable [facility] Unavailable Michael, Natasha Consulting Unavailable Sementi, Larissa Consulting Unavailable Will Smyth Attending Unavailable [facility] Referring Unavailable [facility] Unavailable Joe Oates Attending Unavailable Joe Oates Referring Unavailable Michael, Natasha Consulting Unavailable Roc[place], Giovani Attending Unavailable Agyepong, Pantera Referring Unavailable Roc[place], Giovani Attending Unavailable Agyepong, Pantera Referring Unavailable [place], [place] Attending Unavailable Sementi, Larissa Referring Unavailable [place] Attending Unavailable ADIN HUERTA Referring Unavailable PROBLEMS PROBLEMS DATE TYPE CONDITION / CODE ATTENDING STATUS SOURCE Unknown R94.31 - Abnormal Roc[place], Giovani Active [place] [facility] electrocardiogram Community [ECG] [EKG] / Hospital R94.31(ICD-10) Repository Unknown I47.2 - Ventricular [place], Giovani Active [place] [facility] tachycardia / Community I47.2(ICD-10) Hospital Repository Unknown I10 - Essential Roc[place], [place] Active [place] (primary) hypertension Community / I10(ICD-10) Hospital Repository Unknown Z95.5 - Presence of [place], [place] Active [place] [facility] coronary angioplasty Community implant and graft / Hospital Z95.5(ICD-10) Repository Admitting Urinary tract DEANNA HENDRICKSON, Active [place] [address] Diagnosis infection, site not ADIN DCait [facility] specified / Repository N39.0(ICD-10) Admitting Type 2 diabetes DEANNA HENDRICKSON, Active [place] [address] Diagnosis mellitus without ADIN D. [facility] complications / Repository E11.9(ICD-10) Unknown R07.89 - Other chest ADNI HUERTA Active [place] Anneliese pain / R07.89(ICD-10) [facility] Repository Admitting Essential (primary) DEANNA HENDRICKSON, Active [place] [address] Diagnosis hypertension / ADIN Hathaway [facility] I10(ICD-10) Repository Admitting Mixed hyperlipidemia / DEANNA HENDRICKSON, Active [place] [address] Diagnosis E78.2(ICD-10) ADIN D. [facility] Repository PROCEDURES PROCEDURES No Procedure Records FoundRESULTS RESULTS 12 LEAD ELECTROCARDIOGRAM Observed: 10/05/2018 Status: F Source: [place] 9:56 AM [facility] Cardiovascular Services [address] [place] [address] 12 Lead EKG 09/30/18 1534 MR#: [id number] Acct: [id number] Name: MAKI CHURCH Rep #: [id number] : 1950 68 From: Giovani Alford MD Attending Dr: Joe Oates MD Status: DEP [facility] Ordering Dr: Joe Oates MD Date: 09/30/18 Location: [facility] Sex: F C Admitted: Test Reason : [...] 42 BPM Confirmed by GIOVANI ALFORD MD ([id number]), city editor MAYITO GONZALEZ ([id number]) on 10/05/2018 9:55:59 AM Referred By: Joe Oates Confirmed By:GIOVANI ALFORD MD 10/05/18 0956 Date Giovani Alford MD CC: Joe Oates MD; Adin Huerta MD Signed 12 LEAD ELECTROCARDIOGRAM Observed: 10/05/2018 Status: F Source: [place] 9:55 AM [facility] Cardiovascular Services [address] [place] [address] 12 Lead EKG 10/01/18 0523 MR#: [id number] Acct: [id number] Name: MAKI CHURCH Rep #: [id number] : 1950 68 From: Giovani Alford MD Attending Dr: Joe Oates MD Status: [facility] Ordering Dr: Joe Oates MD Date: 10/01/18 Location: [facility] Sex: F C Admitted: Test Reason : [...] IS UNCONFIRMED Confirmed by GIOVANI ALFORD MD ([id number]), city editor MAYITO GONZALEZ ([id number]) on 10/05/2018 9:55:26 AM Referred By: Joe Oates Confirmed By:GIOVANI ALFORD MD 10/05/18 0955 Date Gioavni Alford MD CC: Joe Oates MD; Adin Huerta MD Signed DISCHARGE INSTRUCTION Observed: 10/01/2018 Status: F Source: [place] 10:13 AM [facility] Medical Records Department [address] [place] [address] Instructions for Home/Discharge Instructions 10/01/18 0907 MR#: [id number] Acct: [id number] Name: MAKI CHURCH Rep #: [id number] : 1950 68 From: Eun JACK PCP: [...] Tb] 1 tab PO DAILY 08/28/18 RX: Ragan-3 Fatty Acids/Fish Oil [Cvs Fish Oil 1,200 [...] patient's physical, psychological, and social functioning. Health animal care giver work in cardiac rehabilitation programs and assist you with getting the treatments you need to get stronger and healthier - like exercise, healthy eating habits, and medications. Cardiac rehabilitation has been show to help people with heart problems live longer and have better life enjoyment than people who do not go to cardiac rehabilitation. Please contact the Cardiac Rehabilitation Program at [facility] at in two weeks if you have not heard from them. 10/01/18 1013 <Electronically signed by Eun JACK> Date Eun JACK CC: Natasha Rodriguez MD; Adin Huerta MD Signed CBC-COMPLETE BLOOD CNT Collected: 10/01/2018 Status: F Source: [place] NO DIFF 4:00 AM [facility] TYPE CODE TESTS RESULT OUT OF [...] MPV 11.1 Performed By: #### L100.0500 #### [facility] [address] [place], [address] BASIC METABOLIC Collected: 10/01/2018 Status: F Source: [place] PROFILE (BMP) 4:00 AM [facility] TYPE CODE TESTS RESULT OUT OF [...] 8 GAP Performed By: #### L500.2500 #### [facility] [address] [place], [place], [address] ACT ACTIVATED CLOTTING Collected: 09/30/2018 Status: F Source: [place] TIME 2:17 PM [facility] TYPE CODE TESTS RESULT OUT OF RANGE REFERENCE UNITS LAB L9100.0100 74-137 sec High ACTk CLOT 169 TIME Performed By: #### L9100.0100 #### [facility] Point of Care [address] [place] [address] CONSULTATION Observed: 09/24/2018 Status: F Source: [place] 4:04 PM [facility] Medical Records Department [address] [place] [address] Consultation 08/29/18 1003 MR#: [id number] Acct: [id number] Name: MAKI CHURCH Rep #: [id number] : 1950 68 From: Natasha Rodriguez MD PCP: Adin Huerta MD Status: DIS IN Y Location: ICU [place] [address] Problem List (1) Chest pain Status: Acute [...] stents Psychiatric History: No pertinent psych hx TRAFFIC SERGEANT History: No pertinent TRAFFIC SERGEANT history - *Family History Maternal Family History: [...] (Auto) 64.3, Lymph % (Auto) 9.0 L, Riley % (Auto) 17.3 H, Eos % (Auto) [...] She is aware of risks of another [place], cardiac arrhythmias and sudden cardiac . She [...] LEAD ELECTROCARDIOGRAM Observed: 09/04/2018 Status: F Source: [place] 2:24 PM [facility] Cardiovascular Services [address] [place] [address]78 12 Lead EKG 09/01/18 0433 MR#: [id number] Acct: [id number] Name: MAKI CHURCH Rep #: [id number] : 1950 68 From: Giovani Alford MD [...] UNCONFIRMED Confirmed by ROCÍO HENDRICKSON, GIOVANI ([id number]), city editor MILTON CALLEJAS ([id number]) on 09/04/2018 2:23:57 PM Referred By: Pantera iPzano Confirmed By:GIOVANI ALFORD MD 09/04/18 1424 Date Giovani Alford MD CC: Larissa Schulz; Joe Oates MD; Pantera Pizano MD; Adin Huerta MD Signed 12 LEAD ELECTROCARDIOGRAM Observed: 09/04/2018 Status: F Source: [place] 2:24 PM [facility] Cardiovascular Services [address] [place] [address] 12 Lead EKG 08/31/18 1050 MR#: [id number] Acct: [id number] Name: MAKI CHURCH Rep #: [id number] : 1950 68 From: Giovani Alford MD [...] UNCONFIRMED Confirmed by ROCÍO HENDRICKSON, GIOVANI ([id number]), city editor MILTON CALLEJAS ([id number]) on 09/04/2018 2:24:06 PM Referred By: Pantera Pizano Confirmed By:GIOVANI ALFORD MD 09/04/18 1424 Date Giovani Alford MD CC: Larissa Schulz; Joe Oates MD; Pantera Pizano MD; Adin Huerta MD Signed 12 LEAD ELECTROCARDIOGRAM Observed: 09/02/2018 Status: F Source: [place] 4:[address] [facility] REPOSITORY [facility] Cardiovascular Services [address] [place] [address] 12 Lead EKG 08/29/18 0538 MR#: [id number] Acct: [id number] Name: MAKI CHURCH Rep #: [id number] : 1950 68 From: Giovani Alford MD [...] UNCONFIRMED Confirmed by ROCÍO HENDRICKSON, GIOVANI ([id number]), city editor MILTON CALLEJAS ([id number]) on 09/02/2018 4:01:46 PM Referred By: Pantera Pizano Confirmed By:GIOVANI ALFORD MD 09/02/18 1601 Date Giovani Alford MD CC: Larissa Schulz; Pantera Pizano MD; Adin Huerta MD Signed 12 LEAD ELECTROCARDIOGRAM Observed: 09/02/2018 Status: F Source: [place] 4:[address] [facility] REPOSITORY [facility] Cardiovascular Services [address] [place] [address] 12 Lead EKG 08/28/18 2150 MR#: [id number] Acct: [id number] Name: MAKI CHURCH Rep #: [id number] : 1950 68 From: Giovani Alford MD [...] UNCONFIRMED Confirmed by ROCÍO HENDRICKSON, GIOVANI ([id number]), city editor MILTON CALLEJAS ([id number]) on 09/02/2018 4:02:27 PM Referred By: Pantera Pizano Confirmed By:GIOVANI ALFORD MD 09/02/18 1602 Date Giovani Alford MD CC: Larissa Schulz; Pantera Pizano MD; Adin Huerta MD Signed 12 LEAD ELECTROCARDIOGRAM Observed: 09/02/2018 Status: F Source: [place] 3:55 PM [facility] Cardiovascular Services [address] [place] [address] 12 Lead EKG 08/31/18 0548 MR#: [id number] Acct: [id number] Name: MAKI CHURCH Rep #: [id number] : 1950 68 From: Giovani Alford MD [...] REQUIRED, DATA IS UNCONFIRMED Confirmed by GIOVANI AFLORD MD ([id number]), city editor MILTON CALLEJAS ([id number]) on 09/02/2018 3:55:22 PM Referred By: Pantera Pizano Confirmed By:GIOVANI ALFORD MD 09/02/18 5744 Date Giovani Alford MD CC: Larissa Schulz; Pantera Pizano MD; Adin Huerta MD Signed 12 LEAD ELECTROCARDIOGRAM Observed: 09/02/2018 Status: F Source: [place] 3:50 PM [facility] Cardiovascular Services [address] [place] [address] 12 Lead EKG 08/28/18 1855 MR#: [id number] Acct: [id number] Name: MAKI CHURCH Rep #: [id number] : 1950 68 From: Giovani Alford MD [...] Abnormal ECG Confirmed by GIOVANI ALFORD MD ([id number]), city editor MILTON CALLEJAS ([id number]) on 09/02/2018 3:50:12 PM Referred By: Pantera Pizano Confirmed By:GIOVANI ALFORD MD 09/02/18 0847 Date Giovani Alford MD CC: Larissa Schulz; ED PHYSICIAN PROVIDER; Pantera Pizano MD; Adin Huerta MD Signed DISCHARGE SUMMARY Observed: 09/01/2018 Status: F Source: [place] 5:58 PM [facility] Medical Records Department [address] [place] [address] Discharge Summary 09/01/18 0841 MR#: [id number] Acct: [id number] Name: MAKI CHURCH Rep #: [id number] : 1950 68 From: Rene Schulz DO PCP: Adin Huerta MD Status: DIS IN Y Location: ICU [id number] Discharge Date and Diagnosis Date of Admission: [...] RBC 4.[address] [facility] None Procedures: Cardiac catheterization [...] who presented to the emergency department at [facility] on 08/28/2018 complaining of chest pain. She [...] no bleeding. She will follow-up in the [facility] office with the physician's respiratory care assistant in 2 weeks. General: alert, oriented [...] no cyanosis This note was generated with [employer] dictation software. It may contain incorrect words, [...] Multivitamin Tb] 1 tab PO DAILY 08/28/18 Ragan-3 Fatty Acids/Fish Oil [Cvs Fish Oil 1,200 [...] Follow Up With: Giovani Alford MD When: PLUM PACKER or PA in Rocío's office in 2 [...] [place] at discharge?: Yes Done w/ Acute [place] measure.: Yes Code Visit Inpatient E AND M: [id number] Disch Hosp 09/01/18 4451 <Electronically signed by Rene Schulz DO> Date M James Schulz [facility] Signature (if applicable): Date CC: Larissa Schulz; Giovani Alford MD; Adin Huerta MD Signed ECHOCARDIOGRAM COMPLETE Observed: 09/01/2018 Status: F Source: [place] 12:45 PM [facility] Cardiovascular Services [address] [place] [address] Echo Complete 09/01/18 0808 MR#: [id number] Acct: [id number] Name: MAKI CHURCH Rep #: [id number] : 1950 68 From: Giovani Alford MD [...] Dictated: 09/01/18 0808 Date Transcribed: 09/01/18 124 Radiologic Technologist Chief: Signed DISCHARGE INSTRUCTION Observed: 09/01/2018 Status: F Source: [place] 8:41 AM [facility] Medical Records Department [address] [facility] [place] [address] [place] [address] Instructions for Home/Discharge Instructions 09/01/18827 MR#: [id number] Acct: [id number] Name: MAKI CHURCH Rep #: [id number] : 1950 68 From: Rene Schulz DO [...] Multivitamin Tb] 1 tab PO DAILY 08/28/18 Ragan-3 Fatty Acids/Fish Oil [Cvs Fish Oil 1,200 [...] Follow Up With: Giovani Alford MD When: PLUM PACKER or PA in [place]'s office in 2 weeks 09/01/18 0841 <Electronically signed by Rene Schulz DO> Date Rene Schulz DO CC: Natasha Rodriguez MD; Giovani Alford MD; Adin Huerta MD CBC-COMPLETE BLOOD CNT Collected: 09/01/2018 Status: F Source: [place] NO DIFF 3:50 AM [facility] TYPE CODE TESTS RESULT OUT OF [...] MPV 10.4 Performed By: #### L100.0500 #### [facility] [place], [address] BASIC METABOLIC Collected: 09/01/2018 Status: F Source: [place] PROFILE (BMP) 3:50 AM [facility] TYPE CODE TESTS RESULT OUT OF [...] GAP 9 Performed By: #### L500.2500 #### [facility] [address] [place], [address] ACT ACTIVATED CLOTTING Collected: 08/31/2018 Status: F Source: [place] TIME 11:34 AM [facility] TYPE CODE TESTS RESULT OUT OF RANGE REFERENCE UNITS LAB L9100.0100 74-137 sec Normal ACTk CLOT 136 TIME Performed By: #### L9100.0100 #### [facility] Point of Care [address] [place] [address] ACT ACTIVATED CLOTTING Collected: 08/31/2018 Status: F Source: [place] TIME 9:25 AM [facility] TYPE CODE TESTS RESULT OUT OF RANGE REFERENCE UNITS LAB L9100.0100 74-137 sec High ACTk CLOT 175 TIME Performed By: #### L9100.0100 #### [facility] Point of Care [address] [place] [address] CBC-COMPLETE BLOOD CNT Collected: 08/31/2018 Status: F Source: [place] NO DIFF 3:54 AM [facility] TYPE CODE TESTS RESULT OUT OF [...] MPV 11.4 Performed By: #### L100.0500 #### [facility] [address] [place] [place], [address] PROTHROMBIN TIME W/INR Collected: 08/31/2018 Status: F Source: [place] 3:54 AM [facility] TYPE CODE TESTS RESULT OUT OF RANGE REFERENCE UNITS LAB L300.4150 11.7-14.9 SECONDS Normal PROTIME 13.8 LAB L300.4200 Normal INR 1.1 Performed By: #### L300.3900, L300.4310 #### [facility] [address] [facility] [place], [address] PARTIAL THROMBOPLAST Collected: 08/31/2018 Status: F Source: [place] TIME 3:54 AM [facility] TYPE CODE TESTS RESULT OUT OF RANGE REFERENCE UNITS LAB L300.4310 24.1-36.2 Seconds Normal PTT 31.4 Performed By: #### L300.3900, L300.4310 #### [facility] [address] [facility] [place], [address] BASIC METABOLIC Collected: 08/31/2018 Status: F Source: [place] PROFILE (BMP) 3:54 AM [facility] TYPE CODE TESTS RESULT OUT OF [...] GAP 10 Performed By: #### L500.2500 #### [facility] [address] [place], [address] BASIC METABOLIC Collected: 08/30/2018 Status: F Source: [place] PROFILE (BMP) 8:54 AM [facility] TYPE CODE TESTS RESULT OUT OF [...] 7 Performed By: #### L500.2500, L501.5200 #### [facility] [address] [place], [place], [address] MAGNESIUM Collected: 08/30/2018 Status: F Source: [place] 8:54 AM [facility] TYPE CODE TESTS RESULT OUT OF RANGE REFERENCE UNITS LAB L501.5200 1.6-2.6 mg/dL Normal MG 2.2 Performed By: #### L500.2500, L501.5200 #### [facility] [address] [facility] [address] CBC-COMPLETE BLOOD CNT Collected: 08/30/2018 Status: F Source: [place] NO DIFF 8:54 AM [facility] TYPE CODE TESTS RESULT OUT OF [...] MPV 10.5 Performed By: #### L100.0500 #### [facility] [address] [place], [place], [address] HEMOGLOBIN A1C Collected: 08/30/2018 Status: F Source: [place] 8:54 AM [facility] TYPE CODE TESTS RESULT OUT OF RANGE REFERENCE UNITS LAB L501.9985 4.2-6.3 % High HGB A1C 6.9 Performed By: #### L501.9985 #### [facility] [address] [place], [address] HISTORY AND PHYSICAL Observed: 08/29/2018 Status: F Source: [place] EXAM 6:28 AM [facility] Medical Records Department [address] [place] [address] History and Physical 08/28/182040 MR#: [id number] Acct: [id number] Name: MAKI CHURCH Rep #: [id number] : 1950 68 From: Pantera Pizano MD PCP: Adin Huerta MD Status: ADM NELIDA Y Location: [place] [address] Problem List (1) NSTEMI (non-ST elevated myocardial [...] stents Psychiatric History: No pertinent psych hx TRAFFIC SERGEANT History: No pertinent TRAFFIC SERGEANT history Lives: Alone Smoking Status: Current every [...] all cause mortality risk, new or recurrent [place], or severe recurrent ischemia requiring urgent revascularization. [...] disease (hypertension; hypercholesterolemia; obesity; current smoking; prior [place].) Admit to a monitored bed on PCU [...] chemoprophylaxis. Code Visit OBSV E AND M: 43448 Initial observation care L3 08/29/18 0628 <Electronically signed by Pantera Pizano MD> Date Pantera Pizano MD Cosigner Signature: Date (if applicable) CC: Pantera Pizano MD; Adin Huerta MD Signed CBC-COMPLETE BLOOD CNT Collected: 08/29/2018 Status: F Source: [place] NO DIFF 5:30 AM [facility] TYPE CODE TESTS RESULT OUT OF [...] MPV 11.3 Performed By: #### L100.0500 #### [facility] [address] [place], [address] PROTHROMBIN TIME W/INR Collected: 08/29/2018 Status: F Source: [place] 5:30 AM [facility] TYPE CODE TESTS RESULT OUT OF RANGE REFERENCE UNITS LAB L300.4150 11.7-14.9 SECONDS High PROTIME 15.0 LAB L300.4200 Normal INR 1.2 Performed By: #### L300.3900, L300.4310 #### [facility] [address] [facility] [place], [address] PARTIAL THROMBOPLAST Collected: 08/29/2018 Status: F Source: [place] TIME 5:30 AM [facility] TYPE CODE TESTS RESULT OUT OF REFERENCE UNITS RANGE LAB L300.4310 24.1-36.2 Seconds High PTT 42.5 Performed By: #### L300.3900, L300.4310 #### [facility] [address] [place], [address] BASIC METABOLIC Collected: 08/29/2018 Status: F Source: [place] PROFILE (BMP) 5:30 AM [facility] TYPE CODE TESTS RESULT OUT OF [...] 9 Performed By: #### L500.2500, L500.4100 #### [facility] [address] [place], [address] LIPID PROFILE Collected: 08/29/2018 Status: F Source: [place] 5:30 AM [facility] TYPE CODE TESTS RESULT OUT OF [...] 31 Performed By: #### L500.2500, L500.4100 #### [facility] [address] [place], [address] TROPONIN-I Collected: 08/29/2018 Status: F Source: [place] 1:05 AM [facility] Order Comment: 'TROP' Serial specimen #1, #2 or #3: 3 TYPE CODE TESTS RESULT OUT OF RANGE REFERENCE UNITS LAB L501.4010 <0.045 ng/mL High 0.094 TROPONIN-I Result Comment: TROPONIN-I EXPECTED VALUES <0.045 Negative 0.045 - 0.590 Consistent with Cardiac Damage > OR = 0.600 Critical Value Not every elevated troponin is indicative of [place]. These values should be used with clinical judgement in examining the patient's clinical picture for diagnosis. To establish a diagnosis of [place] versus myocardial injury, there must be a demonstrated rise and/or fall in the troponin values, in addition to ischemic symptoms, EKG changes, new regional wall motion abnormality, and/or angiographical evidence. PLEASE NOTE: REFERENCE RANGES EDITED 18 Performed By: #### L501.4010 #### [facility] [address] [facility] [place], [address] EMERGENCY DEPARTMENT Observed: 08/29/2018 Status: F Source: [place] SUMMARY 12:06 AM [facility] Medical Records Department [address] [facility] [place] [address] [place] [address] Emergency Department Summary 08/28/182036 MR#: [id number] Acct: [id number] Name: MAKI CHURCH Rep #: [id number] : 1950 68 From: Sabrina Ludwig MD [...] Chest pain This note was generated with [employer] dictation software. It may contain incorrect words, [...] problems, contact your Primary Care Provider. Call [facility] ([phone]) or report to the closest Emergency Room. Call 911 if necessary. 08/29/18 0006 <Electronically signed by Sabrina Ludwig MD> Date Sabrina Ludwig MD Cosigner Signature (If Indicated): Date CC: Adin Huerta MD TROPONIN-I Collected: 08/28/2018 Status: F Source: FLASH 9:45 PM [facility] Order Comment: 'TROP' Serial specimen #1, #2 or #3: 2 TYPE CODE TESTS RESULT OUT OF RANGE REFERENCE UNITS LAB L501.4010 <0.045 ng/mL High 0.079 TROPONIN-I Result Comment: TROPONIN-I EXPECTED VALUES <0.045 Negative 0.045 - 0.590 Consistent with Cardiac Damage > OR = 0.600 Critical Value Not every elevated troponin is indicative of [place]. These values should be used with clinical judgement in examining the patient's clinical picture for diagnosis. To establish a diagnosis of [place] versus myocardial injury, there must be a demonstrated rise and/or fall in the troponin values, in addition to ischemic symptoms, EKG changes, new regional wall motion abnormality, and/or angiographical evidence. PLEASE NOTE: REFERENCE RANGES EDITED 18 Performed By: #### L501.4010 #### [facility] [address] [facility] [address] [place], [place], [address] THYROID STIM HORMONE Collected: 08/28/2018 Status: F Source: FLASH (TSH) 9:45 PM [facility] TYPE CODE TESTS RESULT OUT OF RANGE REFERENCE UNITS LAB L501.9520 0.358-3.74 uIU/mL Normal TSH 1.05 Performed By: #### L501.9520 #### [facility] [address] [place], [address] CHEST 1 VIEW Observed: 08/28/2018 Status: F Source: FLASH (PORTABLE) 7:28 PM [facility] Imaging Services [address] [place] [address] Chest 1 View (Portable) MR#: [id number] Acct: [id number] Name: CHURCHMAKI PARISI Rep #: [id number] : 1950 F 68 From: John Kitchen MD PCP: Adin Huerta MD Status: REG ER Study: Chest 1 View (Portable) Date of Exam: 08/28/18 Exam# [id number] Ordering Dr: Sabrina Ludwig MD STUDY: X-RAY [...] CC: Sabrina Ludwig MD; Adin Huerta MD Radiologic Technologist Chief: Signed CBC W/DIFF, AUTOMATED Collected: 08/28/2018 Status: F Source: FLASH 6:45 PM [facility] TYPE CODE TESTS RESULT OUT OF [...] Normal MACROCYTE Performed By: #### L100.0100 #### [facility] [address] [place], [address] BASIC METABOLIC Collected: 08/28/2018 Status: F Source: [place] PROFILE (BMP) 6:45 PM [facility] TYPE CODE TESTS RESULT OUT OF [...] 11 Performed By: #### L500.2500, L501.4010 #### [facility] [address] [facility]. [place], [place], [address] TROPONIN-I Collected: 08/28/2018 Status: F Source: [place] 6:45 PM [facility] TYPE CODE TESTS RESULT OUT OF RANGE REFERENCE UNITS LAB L501.4010 <0.045 ng/mL High 0.052 TROPONIN-I Result Comment: TROPONIN-I EXPECTED VALUES <0.045 Negative 0.045 - 0.590 Consistent with Cardiac Damage > OR = 0.600 Critical Value Not every elevated troponin is indicative of [place]. These values should be used with clinical judgement in examining the patient's clinical picture for diagnosis. To establish a diagnosis of [place] versus myocardial injury, there must be a demonstrated rise and/or fall in the troponin values, in addition to ischemic symptoms, EKG changes, new regional wall motion abnormality, and/or angiographical evidence. PLEASE NOTE: REFERENCE RANGES EDITED 18 Performed By: #### L500.2500, L501.4010 #### [facility] [address] [place], [place], [address] Observed: 08/25/2018 Status: F Source: [facility] 10:00 AM [facility] REPOSITORY . MICRO - Microbiology PROCEDURE: Urine [...] Locations *1: This test was performed at: [facility], [address] [place] [address], [address] [place] [address] Performed By: #### CUR #### [address] Collected: 08/19/2018 Status: F Source: [facility] 9:36 AM [facility] REPOSITORY TYPE CODE TESTS RESULT OUT OF [...] Performed By: #### CMP, LIPID, GFR #### [place] [address] LIPID Collected: 08/19/2018 Status: F Source: [facility] 9:36 AM [facility] REPOSITORY TYPE CODE TESTS RESULT OUT OF [...] Performed By: #### CMP, LIPID, GFR #### [place] [address] .GFR Collected: 08/19/2018 Status: F [facility] AM [facility] REPOSITORY TYPE CODE TESTS RESULT OUT OF REFERENCE UNITS RANGE LAB GFRAA(LOINC ml/min/1.73 ) sqm GFR 119 Mongolian Result Comment: GFR Population mean for , [...] Performed By: #### CMP, LIPID, GFR #### [place] [address] STRESS REPORT Observed: 02/27/2018 Status: F Source: [place] 11:06 AM [facility] Cardiovascular Services [address] [place] [address] MR#: [id number] Acct: [id number] Name: MAKI CHURCH Rep #: [id number] : 1950 67 From: Te Arroyo MD [...] 73 %. This note was generated with [employer] software. It may contain incorrect words, spelling, and punctuation that were not noted in checking the note before signing. 02/27/18 1106 <Electronically signed by Te Arroyo MD> Date Te Arroyo MD CC: Adin Huerta MD Date Dictated: 02/27/18 1103 Date Transcribed: 02/27/181102 Radiologic Technologist Chief: PM Signed LIPID Collected: 02/11/2018 Status: F Source: [facility] 9:01 AM [facility] REPOSITORY TYPE CODE TESTS RESULT OUT OF [...] Performed By: #### LIPID, CMP, GFR #### [place] [address] [place], [place] [address] CMP Collected: 02/11/2018 Status: F Source: [facility] 9:01 AM [facility] REPOSITORY TYPE CODE TESTS [...] Performed By: #### LIPID, CMP, GFR #### [place] [address] [place], [place] [address] .GFR Collected: 02/11/2018 Status: F Source: [facility] 9:01 AM [facility] REPOSITORY TYPE CODE TESTS RESULT OUT OF REFERENCE UNITS RANGE LAB GFRAA(LOINC ml/min/1.73 ) sqm GFR 91 Mongolian Result Comment: GFR Population mean for , [...] Performed By: #### LIPID, CMP, GFR #### [address] [address] ALLERGIES ALLERGIES DATE TYPE / CODE NAME / CODE REACTION SEVERITY SOURCE 09/23/2018 Drug No Known Unknown [facility] Allergy/4160 Allergies/F00 [facility] [address]222(SNOMED 5007425(RXNOR Repository CT) M) ENCOUNTERS ENCOUNTERS ADMIT/DISCHARGE ACCOUNT NUMBER ADMITTING ENCOUNTER LOCATION SOURCE CLASS 09/30/2018/10/01/19 [id number] Ambulatory Flash Flash 19 [facility] ding:CLSPRoo Repository m: [id number] 09/14/2018/09/14/20 [id number] Ambulatory BMSBuilding: Flash 18 BMS.[facility] Repository 08/29/2018/09/01/20 [id number] Agyepong, Inpatient [address] ding:ICURoom Repository : [id number]: 1 08/29/2018 [id number] Agyepong, Ambulatory BMSBuilding: Flash [place]ott BMS..[facility] Repository 08/29/2018 [id number] Agyepong, Ambulatory BMSBuilding: Flash [place] BMS.[facility] Repository 08/29/2018 [id number] Agyepong, Ambulatory BMSBuilding: Flash [place]ott BMS.[facility] Repository 08/29/2018 [id number] Agyepong, Ambulatory BMSBuilding: Flash [place] BMS.[facility] Repository 08/29/2018 [id number] Agyepong, Ambulatory BMSBuilding: Flash [place]ott BMS.[facility] Repository 08/29/2018 [id number] Ambulatory BMSBuilding: [facility] Repository 08/29/2018/09/01/20 [id number] Ambulatory BMSBuilding: [address] Repository 08/28/2018 [id number] Agyepong, Ambulatory BMSBuilding: Flash [place]ott BMS.[facility] Repository 08/28/2018 [id number] Agyepong, Ambulatory BMSBuilding: Flash [place] BMS.[facility] Repository 08/28/2018 [id number] Ambulatory BMSBuilding: [facility] Repository 08/25/2018/08/29/20 [id number] Ambulatory BBuilding:DR Fink [address] [place] [address] Repository 08/19/2018/08/23/20 [id number] Ambulatory BBuilding:DR Fink 18 [facility] Repository 02/27/2018 [id number] Ambulatory [facility] ding:[facility] Repository 02/27/2018 [id number] Ambulatory BMSBuilding: [facility] Repository 02/17/2018 [id number] Ambulatory BBuilding:RA Danae Silverio [facility] Repository 02/11/2018/02/16/20 [id number] Ambulatory [address]:[facility] Repository PAYERS PAYERS ENCOUNTER GUARANTOR PAYER SUBSCRIBER SOURCE 09/30/2018 MAKI S Primary MAKI S Flash [id number] E Insurance:MEDICARE CUNNINGHAMDOB: Community [place] PART A [facility] [id number], [place] Number: Repository [address]Cca: 330 [id number] [phone] (HP) Date:2018-09-16 09/30/2018 Secondary MAKI S [place] Insurance:MEDICAIDPol CUNNINGHAMDOB: [facility] icy Number: [id number] Hospital [id number] Repository Date:2018-09-16 09/30/2018 Tertiary NOT GIVENUNK [place] Insurance:SELF PAY [facility] Number: Effective Repository Date:2018-09-16 09/14/2018 MAKI S Primary MAKI S Flash [id number] E Insurance:MEDICARE CUNNINGHAMDOB: Community [place] PART A [facility] [id number], [place] Number: Repository [address]Kva: 330 [id number] [phone] (HP) Date:2018-08-31 09/14/2018 Secondary MAKI S [place] Insurance:MEDICAIDPol CUNNINGHAMDOB: Community icy Number: [id number] Hospital [id number] Repository Date:2018-08-31 09/14/2018 Tertiary NOT GIVENUNK Flash Insurance:SELF PAY [facility] Number: Effective Repository Date:2018-09-14 08/29/2018 MAKI S Primary MAKI S Flash [id number] E Insurance:MEDICARE CUNNINGHAMDOB: Community [place] PART A [facility] [id number] Hospital [place] Number: Repository [address]Wla: 330 [id number] [phone] (HP) Date:2018-08-28 08/29/2018 Secondary MAKI S Flash Insurance:MEDICAIDPol CUNNINGHAMDOB: Community icy Number: [id number] Hospital [id number] Repository Date:2018-08-28 08/29/2018 Tertiary NOT GIVENUNK Flash Insurance:SELF PAY [facility] Number: Effective Repository Date:2018-08-28 08/29/2018 MAKI S Primary MAKI S [place] [id number] E Insurance:MEDICARE CUNNINGHAMDOB: Community [place] PART A [facility] [id number], [place] Number: Repository [address]Xhv: 330 [id number] [phone] () Date:2018-08-28 08/29/2018 Secondary MAKI S Flash Insurance:MEDICAIDPol CUNNINGHAMDOB: Community icy Number: [id number] Hospital [id number] Repository Date:2018-08-28 08/29/2018 Tertiary NOT GIVENUNK Flash Insurance:SELF PAY [facility] Number: Effective Repository Date:2018-08-29 08/29/2018 MAKI S Primary MAKI S Flash [id number] E Insurance:MEDICARE CUNNINGHAMDOB: Community [place] PART A [facility] [id number], [place] Number: Repository [address]Uke: 330 [id number] [phone] () Date:2018-08-28 08/29/2018 Secondary MAKI S Flash Insurance:MEDICAIDPol CUNNINGHAMDOB: Community icy Number: [id number] Hospital [id number] Repository Date:2018-08-28 08/29/2018 Tertiary NOT GIVENUNK [place] Insurance:SELF PAY [facility] Number: Effective Repository Date:2018-08-29 08/29/2018 MAKI S Primary MAKI S Flash [id number] E Insurance:MEDICARE CUNNINGHAMDOB: Community [place] PART A [facility] [id number], [place] Number: Repository [address]Vln: 330 [id number] [phone] () Date:2018-08-28 08/29/2018 Secondary MAKI S Flash Insurance:MEDICAIDPol CUNNINGHAMDOB: Community icy Number: [id number] Hospital [id number] Repository Date:2018-08-28 08/29/2018 Tertiary NOT GIVENUNK Flash Insurance:SELF PAY [facility] Number: Effective Repository Date:2018-08-29 08/29/2018 MAKI S Primary MAKI S [place] [id number] E Insurance:MEDICARE CUNNINGHAMDOB: Community [place] PART A [facility] [id number] [place] Number: Repository [address]Zej: 330 [id number] [phone] () Date:2018-08-28 08/29/2018 Secondary MAKI S Flash Insurance:MEDICAIDPol CUNNINGHAMDOB: Community icy Number: [id number] Hospital [id number] Repository Date:2018-08-28 08/29/2018 Tertiary NOT GIVENUNK Flash Insurance:SELF PAY [facility] Number: Effective Repository Date:2018-08-29 08/29/2018 MAKI S Primary MAKI S Flash [id number] E Insurance:MEDICARE CUNNINGHAMDOB: Community [place] PART A [facility] [id number] Number: Repository [address]Qpr: (330 [id number] [phone] () Date:2018-08-28 08/29/2018 Secondary MAKI S Flash Insurance:MEDICAIDPol CUNNINGHAMDOB: Community icy Number: [id number] Hospital [id number] Repository Date:2018-08-28 08/29/2018 Tertiary NOT GIVENUNK [place] Insurance:SELF PAY [facility] Number: Effective Repository Date:2018-08-29 08/29/2018 MAKI S Primary MAKI S [place] [id number] E Insurance:MEDICARE CUNNINGHAMDOB: Community [place] PART A [facility] [id number] Number: Repository [address]Nab: 330 [id number] [phone] () Date:2018-08-28 08/29/2018 Secondary MAKI S [place] Insurance:MEDICAIDPol CUNNINGHAMDOB: Community icy Number: [id number] Hospital [id number] Repository Date:2018-08-28 08/29/2018 Tertiary NOT GIVENUNK Flash Insurance:SELF PAY [facility] Number: Effective Repository Date:2018-08-29 08/29/2018 MAKI S Primary MAKI S Flash [id number] E Insurance:MEDICARE CUNNINGHAMDOB: [facility] [id number] Number: Repository [address]Ocz: 330 [id number] [phone] () Date:2018-08-28 08/29/2018 Secondary MAKI S Flash Insurance:MEDICAIDPol CUNNINGHAMDOB: [facility] icy Number: [id number] Hospital [id number] Repository Date:2018-08-28 08/29/2018 Tertiary NOT GIVENUNK Flash Insurance:SELF PAY [facility] Number: Effective Repository Date:2018-08-29 08/28/2018 MAKI S Primary MAKI S Flash [id number] E Insurance:MEDICARE CUNNINGHAMDOB: [facility] PART A [facility] [id number] Number: Repository [address]Ewn: 330 [id number] [phone] () Date:2018-08-28 08/28/2018 Secondary MAKI S [place] Insurance:MEDICAIDPol CUNNINGHAMDOB: Community icy Number: [id number] Hospital [id number] Repository Date:2018-08-28 08/28/2018 Tertiary NOT GIVENUNK Flash Insurance:SELF PAY [facility] Number: Effective Repository Date:2018-08-28 08/28/2018 MAKI S Primary MAKI S Flash [id number] E Insurance:MEDICARE CUNNINGHAMDOB: [facility] PART A olic [id number] Hospital [place], [place] Number: Repository [address]Kbj: ([phone] [id number] [phone] () Date:2018-08-28 08/28/2018 Secondary MAKI S [place] Insurance:MEDICAIDPol [facility]: [facility] icy Number: [id number] Hospital [id number] Repository Date:2018-08-28 08/28/2018 Tertiary NOT GIVENUNK Flash Insurance:SELF PAY [facility] Number: Effective Repository Date:2018-08-28 08/28/2018 MAKI S Primary [facility] S [facility] [facility] Insurance:MEDICARE CUNNINGHAMDOB: [facility] PART A olic [id number] [facility] [address], [place] Number: Repository [address]Bke: [phone] [id number] [phone] () Date:2018-08-28 08/28/2018 Secondary MAKI S [place] Insurance:MEDICAIDPol [facility]ITAL[facility]ING[facility]AMDOB: [facility] icy Number: [id number] Hospital [id number] Repository Date:2018-08-28 08/28/2018 Tertiary NOT GIVENUNK [place] Insurance:SELF PAY [facility] Number: Effective Repository Date:2018-08-28 08/25/2018 MAKI S [facility]:MEDICARE [facility] HOSPITAL[facility]AMDOB: [facility] E PART B [employer] [id number] Repository [facility] [address] Number: E [facility] [address] [facility], [place] [id number] [facility] [place] [address]Nej: (330) Date:2018-08-25 [address]300[address]Tgu: [id number] [phone] ()Tel: (000) Name:[facility] () (WP) Administrators LLCPO 000-0000 (WP) [address] [address], [place] [address]IT: 08/19/2018 MAKI S Primary MAKI S [facility] CUNNINGHAMDOB: Insurance:MEDICARE CUNNINGHAMDOB: [facility] E PART B INSC[employer] [id number] Repository [facility] [address] Number: E [facility] [address] [id number] [place], [place] [address]Msj: (330) Date:2018-08-19Tel: [phone] (HP)Tel: (000) Name:[facility] (HP) (WP) Administrators LLCPO 000-0000 (WP) [address] [place] [address]DD: 02/27/2018 Maki S Primary Maki S Flash [id number] E Insurance:MEDICARE CunninghamDOB: [facility] PART A [facility] [id number] Number: Repository [address]Sbd: 330 [id number] [phone] () Date:2018-02-20 02/27/2018 Secondary Maki S [place] Insurance:MEDICAIDPol [facility] ic Number: [id number] Hospital [id number] Repository Date:2018-02-20 02/27/2018 Tertiary NOT GIVENUNK [place] Insurance:SELF PAY [facility] Number: Effective Repository Date:2018-02-20 02/27/2018 Maki S Primary Maki S [place] [id number] E Insurance:MEDICARE CunninghamDOB: [facility] PART A [facility] [id number] Hospital [address], [place] Number: Repository [address]Zpf: 330 [id number] [phone] () Date:2018-02-20 02/27/2018 Secondary Maki S Flash Insurance:MEDICAIDPol [facility]: [facility] icy Number: [id number] Hospital [id number] Repository Date:2018-02-20 02/27/2018 Tertiary NOT GIVENUNK [place] Insurance:SELF PAY Community [facility] Number: Effective Repository Date:2018-02-27 02/17/2018 MAKI S Primary MAKI [facility]: Insurance:MEDICARE [facility] E PART BPolicy Number: [id number] Repository [facility] [id number] E [facility] [address], [place] Date:2018-02-17[place], [place] [address]Oqk: [phone] [phone]: Name:[facility] [phone] (HP)Tel: (000) Administrators LLCPO (HP) (WP) [address] [address]Tom[address]wtii, 000-0000 (WP) [place] [address]SI: 02/11/2018 MAKI S Primary MAKI [facility] Insurance:MEDICARE [facility]: [facility] E PART BPolicy Number: [id number] Repository [facility] [id number] E [facility] [address], [place] Date:2018-02-11[place], [place] [address]Tkk: [phone] [phone]: Name:[facility] [phone] (HP)Tel: (000) Administrators LLCPO (HP) (WP) [address] [address]Adbtswgbp, 000-0000 (WP) [place] [address]BF:
== END 2018-10-01 10:15 | disposition home or self-care (01) ==
LOC: CLSP 10:49 → ICU 10-01 09:32
PROVIDERS: Family Provider Family Medicine; PCP Family Medicine; Referring Provider Internal Medicine Cardiovascular Disease; Visit Provider Internal Medicine Cardiovascular Disease
DX: I25.119 Atherosclerotic heart disease of native coronary artery with unspecified angina pectoris (principal); I10 Essential (primary) hypertension; E78.2 Mixed hyperlipidemia; F17.200 Nicotine dependence, unspecified, uncomplicated; Z98.61 Coronary angioplasty status; I21.4 Non-ST elevation (NSTEMI) myocardial infarction; E11.9 Type 2 diabetes mellitus without complications; I73.9 Peripheral vascular disease, unspecified
CPT/HCPCS: 80048; 85027; 85347; 92928; 93005; 99152; 99153; J7030; J7040; A4216; C1725; C1769; C1874; C1887; C1894; C9600; Q9967

== ENCOUNTER → 2018-11-09 12:21 | Outpatient (CLI) | payer MEDICARE, MEDICAID, SELFPAY ==
[2018-09-30 15:49] VITALS: BMI 45.3
[2018-10-01 08:20] VITALS: BMI 43.3
[2018-10-26 10:29] VITALS: BMI 44.1
--- NOTE | 2018-11-09 12:28 | ART_ITS ---
Reason For Study: atherosclerosis Left Segmental Pressures Left brachial= 179mmHg. Left posterior tibial artery = 187mmHg. Left dorsalis pedis artery = 180mmHg. The left dorsalis pedis waveforms are triphasic. The left posterior tibial artery waveforms are triphasic. Right Segmental Pressures Right brachial= 199mmHg. Right posterior tibial artery = 106mmHg. Right dorsalis pedis artery = 98mmHg. The right dorsalis pedis waveforms are monophasic. The right posterior tibial artery waveforms are monophasic. Indices The right ankle brachial index by the dorsalis pedis is .49. The right ankle brachial index by the posterior tibial artery is .53. The left ankle brachial index by the dorsalis pedis is .9. The left ankle brachial index by the posterior tibial artery is .94. Brachial pressures checked x2. Interpretation Summary 1. Right leg with moderate occlussive disease and kacey 0.53 with biphasic to monophasic flow. 2. Left leg with no significant stenosis at rest with kacey 0.94 and triphasic flow. Ordering Physician: Chet Harrison Performed By: EFFIE PITTS Kaylah
== END ==
PROVIDERS: Family Provider Family Medicine; PCP Family Medicine; Referring Provider Surgery Vascular Surgery; Visit Provider Surgery Vascular Surgery
DX: I70.213 Atherosclerosis of native arteries of extremities with intermittent claudication, bilateral legs (principal)
CPT/HCPCS: 93922

== ENCOUNTER → 2019-04-21 | Outpatient (CLI) | payer MEDICARE, MEDICAID, SELFPAY ==
[2018-10-01 08:20] VITALS: BMI 43.3
[2019-03-24 09:41] VITALS: BMI 43.3
--- NOTE | 2019-04-21 08:47 | ADUL_ITS ---
Reason For Study: Atherosclerosis Right Velocities Ext. Iliac Artery, dist = 228.3 cm./sec. Common Femoral Artery, mid = 186.2 cm./sec. Supf Femoral Artery, prox = 157.1 cm./sec. Supf Femoral Artery, mid = 108.2 cm./sec. Supf Femoral Artery, dist. = 47 cm./sec. Profunda Femoral Artery = 263.1 cm./sec. Popliteal Artery, prox. = 18.3 cm./sec. Popliteal Artery, mid = 17.8 cm./sec. Popliteal Artery, dist = 15.3 cm./sec. Post. Tibial Artery, prox = 17.1 cm./sec. Post. Tibial Artery, mid = 26.8 cm./sec. Post. Tibial Artery, dist = 22.5 cm./sec. Ant. Tibial Artery, prox = 27.5 cm./sec. Ant. Tibial Artery, mid = 20.7 cm./sec. Ant. Tibial Artery, dist = 59 cm./sec. PeroA not visualized due to pt body habitus. Procedure Exam performed in department. Interpretation Summary 1. right pofunda with moderate stenosis. No other significant stenosis but SFa goes from triphasic to monophasic flow. Ordering Physician: Chet Harrison Referring Physician: Ryan Zaragoza Performed By: Jolly Jenkins RVT
--- NOTE | 2019-04-21 08:47 | ART_ITS ---
Reason For Study: Atherosclerosis Procedure A bilateral lower extremity continuous wave Doppler with analog waveform analysis and ankle brachial indexes. Left Segmental Pressures Left brachial= 155mmHg. Left posterior tibial artery = 181mmHg. Left dorsalis pedis artery = 175mmHg. Left digit = 125 mmHg. The left dorsalis pedis waveforms are triphasic. The left posterior tibial artery waveforms are triphasic. Right Segmental Pressures Right brachial= 158mmHg. Right posterior tibial artery = 84mmHg. Right dorsalis pedis artery = 73mmHg. Right digit = 78 mmHg. The right dorsalis pedis waveforms are monophasic. The right posterior tibial artery waveforms are monophasic. Indices The right ankle brachial index by the dorsalis pedis is 0.46. The right ankle brachial index by the posterior tibial artery is 0.53. The right digital-brachial index is 0.49. The left ankle brachial index by the dorsalis pedis is 1.11. The left ankle brachial index by the posterior tibial artery is 1.15. The left digital-brachial index is 0.79. Interpretation Summary 1. right leg moderate occlussive disease with DILLON 0.53. 2. Left leg normal study at rest with DILLON 1.15. Ordering Physician: Chet Harrison Referring Physician: Adin Zaragoza Performed By: Jolly Jenkins RVT
== END | disposition home or self-care (01) ==
LOC: CVS 08:45
PROVIDERS: Family Provider Family Medicine; PCP Family Medicine; Referring Provider Surgery Vascular Surgery; Visit Provider Surgery Vascular Surgery
DX: I70.213 Atherosclerosis of native arteries of extremities with intermittent claudication, bilateral legs (principal); M79.609 Pain in unspecified limb
CPT/HCPCS: 93922; 93926

== ENCOUNTER 2019-05-21 16:17 | Inpatient (IN) | payer MEDICARE, MEDICAID, SELFPAY ==
[2018-10-01 08:20] VITALS: BMI 43.3
[2019-03-24 09:41] VITALS: BMI 43.3
[2019-05-21 16:20] VITALS: BP 142/67; PULSE 74; RESP 18; TEMP 36.8; O2SAT 95; BMI 46.9
--- NOTE | 2019-05-21 16:28 | CM.ED ---
SOCIAL WORK PATIENT BROUGHT IN BY [facility] UNRESPONSIVE. NO FAMILY PRESENT AT THIS TIME. AGUILA GAYLE, ASSURANCE SOURCING MANAGER, TRAVEL [place].
[2019-05-21] MEDS: Etomidate 20 MG/10 ML Vial IV (16:34)
[2019-05-21 16:36] VITALS: PULSE 69; RESP 25; O2SAT 98
--- NOTE | 2019-05-21 16:37 | CT_ITS ---
We are attempting to reach an attending provider to discuss findings. An addendum with communication details will be sent when the communication is complete. HISTORY:UNRESPONSIVE UNRESPONSIVE TECHNIQUE: Multiple axial images were obtained of the brain without intravenous contrast. A radiation dose optimization technique was used for this scan. IV Contrast dosage and agent: None. COMPARISON: None FINDINGS: # of images incl. paperwork: 259 INFARCT: None HEMORRHAGE: There is a large intraparenchymal hemorrhage involving the right frontal parietal and temporal lobe. This measures approximately 6.83 cm AP by 3.84 cm transverse by approximately 6.22 cm craniocaudad with a volume of approximately 82.35 cc. There is midline shift [id number] of approximately 1.7 cm. There is diffuse subarachnoid hemorrhage as well as intraventricular hemorrhage involving the right lateral ventricle and the fourth ventricle is not well visualized but contains blood. The third ventricle is also poorly visualized but contains blood. There is enlargement of the left ventricle including the temporal horn when compared to the right. There is loss of the basilar cisterns. These contain hemorrhage also. These findings are suspicious for herniation. There is probably a small subdural component seen involving the right temporal lobe anteriorly on image 16 series 102 PARENCHYMAL ATTENUATION:There is vasogenic edema surrounding the hemorrhage. MASS: None MIDLINE SHIFT: 1.7 cm left to right BASAL CISTERNS: Markedly narrowed and containing subarachnoid hemorrhage VENTRICLES: The right lateral ventricle and the fourth ventricle are effaced. The left lateral ventricle is enlarged. The third ventricle contains blood PARANASAL SINUSES:Mucosal thickeningair-fluid level are all within the left maxillary sinus. Also within the ethmoid sinuses and the left sphenoid sinus MASTOID AIR CELLS: Clear ORBITS:No acute pathology CALVARIUM: No acute pathology OTHER TISSUES: There is an endotracheal tube as well as a nasogastric tube with the distal portion not visualized ASPECTS Score for Acute Strokes: 10 CT/Brain/Head without Contrast IMPRESSION: Large right cortical cerebral hemorrhage as discussed. There is subfalcine herniation with 1.7 cm left to right midline shift. Loss of the basilar cisterns. Enlargement of the left lateral ventricle. There is also intraventricular hemorrhage and subarachnoid hemorrhage. Findings may be secondary to hypertensive hemorrhage, aneurysm rupture or underlying neoplasm that bled. There is also probably a small subdural component in the right temporal lobe Vasogenic edema surrounds the hemorrhage Suspect impending tentorial herniation as well as uncal herniation Individualized dose optimization techniques were used for this CT. at 1742 Reported and signed by: Hanny Franco DO Electronically Signed: Hanny Franco DO at 17:40 EDT Tel , Service support ,
--- NOTE | 2019-05-21 16:38 | EKG12_ITS ---
Test Reason : UNRESPONSIVE Blood Pressure : / mmHG Vent. Rate : 067 BPM Atrial Rate : 138 BPM P-R Int : 000 ms QRS Dur : 086 ms QT Int : 460 ms P-R-T Axes : 000 -12 008 degrees QTc Int : 486 ms Accelerated Junctional rhythm Nonspecific ST abnormality Abnormal ECG Confirmed by ABNER GOTTLIEB ([id number]), web editor ANTONIO OATES ([id number]) on 05/24/2019 2:19:42 PM Referred By: John Pal Confirmed By:ABNER GOTTLIEB
[2019-05-21] MEDS: Midazolam 2 MG/2 ML Syringe IV (16:55)
[2019-05-21 17:03] VITALS: BP 115/59; PULSE 74; RESP 19; TEMP 38.2; O2SAT 99
[2019-05-21 17:10] LABS: Bedside Glucose 185 mg/dL (70-110)
[2019-05-21 17:11] LABS: Bacteria 0 SEEN /hpf (None Seen); Mucous, Urine 0 SEEN /hpf (<or=2+); Squamous Epithelial Cells - UA 0 SEEN /hpf (5-10)
[2019-05-21 17:13] LABS: Color, Urine Yellow (Yellow); Glucose, Dipstick Normal (Normal); Ketone-Dipstick 5 mg/dl (Negative); Leukocyte Esterase-Dipstick 25 /ul (Negative); Nitrite-Dipstick Negative (Negative); Occult Blood-Urine 250 /ul (Negative); Protein-Dipstick 100 mg/dl (Negative); Urine Bilirubin Dipstick Negative (Negative); Urine Clarity Cloudy (Clear); Urine Urobilinogen Normal (Normal)
--- NOTE | 2019-05-21 17:22 | NURSING ---
CALLED [facility] FOR TRANSFER.
[2019-05-21] MEDS: 0.9% Normal Saline 1,000 ML 150 ML IV (17:23)
--- NOTE | 2019-05-21 17:25 | RAD_ITS ---
HISTORY:INTUBATION INTUBATION EXAM: XR Chest 1 View: COMPARISON: August 28, 2018 FINDINGS: # of images incl. paperwork: 1 LINES/DEVICES: Endotracheal tube with the tip approximately 3.9 cm proximal to the gaby There is a NG tube with the tip at least in the stomach LUNGS: Mild vascular prominence. No consolidation, edema or effusion. No pneumothorax. MEDIASTINUM AND CARDIOVASCULAR STRUCTURES: Cardiac silhouette not enlarged. BONES AND SOFT TISSUES: Unremarkable. RAD/Chest 1 View (Portable) IMPRESSION: ET tube with the tip approximately 3.9 cm proximal to the gaby NG tube in the stomach Mild vascular prominence at 1743 Reported and signed by: Hanny Franco DO Electronically Signed: Hanny Franco DO at 17:42 EDT Tel , Service support ,
[2019-05-21 17:35] LABS: Red Blood Cells-Urine > 100 SEEN /hpf (0-5); White Blood Cells 0-5 SEEN /hpf (0-5)
--- NOTE | 2019-05-21 17:36 | CM.ED ---
SOCIAL WORK PATIENT'S COUSIN HERE AND UPDATED ON PATIENT'S STATUS AND PLAN OF CARE BY DR. STEVENS. PLAN FOR TRANSFER TO [facility]. COUSIN ATTEMPTING TO CONTACT PATIENT'S SISTER AT THIS TIME. AGUILA GAYLE, PUBLICATIONS EDITOR, TRUMPET TEACHER.
[2019-05-21] MEDS: dexAMETHasone 10 MG/ML Vial IV (17:46)
[2019-05-21 18:05] VITALS: BP 128/69; PULSE 67; RESP 18; TEMP 38.6; O2SAT 100
--- NOTE | 2019-05-21 18:08 | CM.ED ---
SOCIAL WORK COUSIN REPORTING PATIENT WOULD NOT WANT TO COMPLETE SURGERY, NO EXTRAORDINARY MEASURES. INFORMED COUSIN, DRE ROSEN WILL NEED TO SPEAK WITH PATIENT'S NEXT OF KIN, SISTER- RADHA HUI. COUSIN PROVIDED THIS WORKER WITH CONTACT INFORMATION FOR RADHA- . ATTEMPTED TO CONTACT SISTER X3. NO ANSWER, UNABLE TO LEAVE MESSAGE. AGUILA GAYLE, SALES COMMISSIONS ANALYST, BLEND TECHNICIAN.
[2019-05-21 18:17] LABS: Absolute Lymphocyte Count 0.99 X10^3/uL (0.83-4.51); Absolute Neutrophil Count 14.1 X10^3/uL (2.0-7.7); Basophil# 0.03 X10^3/uL; Basophil% 0.2 % (0-1); Eosinophil# 0.14 X10^3/uL; Eosinophils% 0.8 % (0-5); Hematocrit 51.5 % (37-47); Hemoglobin 17.2 g/dL (12.0-15.0); Lymphocyte # 0.99 X10^3/ul (4.0); Lymphocyte % 5.6 % (19-41); Mean Corp Hgb Conc 33.4 g/dL (32-36); Mean Corpuscular Hgb 30.9 pg (27.0-32.0); Mean Corpuscular Volume 92.5 fL (81-99); Monocyte# 2.28 X10^3/uL; Monocyte% 12.9 % (0-10); NRBC Flagged by Analyzer 0 % (0-5); Neutrophil # 14.14 X10^3/uL (2.7-7.7); Neutrophil % 79.9 % (47-70); POSITIVE DIFFERENTIAL YES; Platelet Count 229 K/mm3 (150-450); RBC Distribution Width CV 13.2 % (11.6-14.6); RBC Distribution Width SD 44.6 fl (35.1-43.9); Red Blood Count 5.57 M/mm3 (4.2-5.4); White Blood Count 17.7 K/mm3 (4.4-11.0)
--- NOTE | 2019-05-21 18:20 | CM.ED ---
SOCIAL WORK RECEIVED CALL BACK FROM PATIENT'S SISTER, RADHA HUI. PER SISTER, PATIENT WOULD NOT WANT TO BE INTUBATED. DR. JUARZE AT PATIENT'S BEDSIDE. SISTER ON PHONE WITH DR. JUAREZ AT THIS TIME. AGUILA GAYLE, POLITICAL ANALYST, CRIME LABORATORY ANALYST.
[2019-05-21 18:29] LABS: International Normalized Ratio 1.2; Prothrombin Time (Protime)PT. 15.2 SECONDS (11.7-14.9)
[2019-05-21 18:30] LABS: Partial Thromboplast Time 31.4 Seconds (24.1-36.2)
--- NOTE | 2019-05-21 18:33 | ED.DCSUM_ITS ---
- ER Visit Summary Date of Service: 05/21/19 Chief Complaint: [Unresponsive ] History of Present Illness: The patient is a 68 F [presents from home via EMS. Patient's cousin had not heard from the patient for 2 days which was unusual and so she went to check on her and found her on her couch and unresponsive. EMS was contacted. Patient has history of coronary artery disease, hypertension, high cholesterol, peripheral vascular disease. Patient cannot give any history.] Physical Examination: [HEENT-PERRLA, EOMI. Cranial nerves II through XII grossly intact. TMs clear. Mucous membranes moist. No adenopathy. Patient has vomit around her mouth and left side of her neck. Patient is unresponsive. Patient does not follow commands. Cardiovascular-regular rate and rhythm without murmur or ectopy Lungs-coarse breath sounds bilaterally. Abdomen-normoactive bowel sounds, soft, nontender, no rebound or rigidity, no peritoneal signs. Extremities-intact ?4, normal range of motion, normal pulses, atraumatic] Test Results: [] CBC and chemistries pending. EKG obtained arrival showed sinus rhythm with a ventricular rate [address] scan of the brain showed an intraparenchymal right-sided hemorrhage with subdural component and 1.7 cm of midline shift and early uncal herniation. Emergency Department Course and Treatment: [Patient on arrival was intubated using a 7.5 ET tube. Patient was given 20 mg of etomidate and 100 mg succinylcholine. Chest x-ray obtained showed good placement of ET tube. Patient had good color change.] Treatment Plan: [Patient was discussed with her cousin and her sister and they both agreed that patient would not want any life-sustaining measures. They understand that odds of survival regardless of treatment here are minimal. Patient's cousin and sister both in agreement that they do not want anything more done in one patient made comfortable and comfort care only.] This was discussed with hospitalist Dr. Pal who also spoke with the patient's sister and asked that we extubate the patient and patient will be admitted until she should and be made comfortable. Disposition: [Admit] Impression: [Intracranial hemorrhage-comfort measures only ] This note was generated with [employer] software. It may contain incorrect words, spelling, and punctuation that were not noted in review of the chart prior to signing ED Disposition - Plan for ED Patient: Referrals: Adin Zaragoza MD [Primary Care Provider] -
[2019-05-21 18:41] LABS: ALB/GLOB Ratio 0.8 RATIO (0.9-2.4); AST(SGOT) 60 U/L (15-37); Alanine Aminotransfer ALT/SGPT 43 U/L (13-56); Albumin, Serum 3.3 g/dL (3.2-5.0); Alkaline Phosphatase 101 U/L (45-117); Anion Gap 9 (5-15); BUN 24 mg/dL (7-18); BUN/Creat Ratio 25.3 RATIO (10-20); Chloride 108 mmol/L (98-107); Creatinine, Serum 0.95 mg/dL (0.55-1.02); EST Glomerular Filtration Rate 63 mL/min (>60); Est Glom Filt Rate - Afr Amer 76 mL/min (>60); Estimated Creatinine Clearance 48.19 ml/min; Globulin 4.3 g/dL (2.2-4.2); Glucose 165 mg/dL (74-106); Potassium 3.6 mmol/L (3.5-5.1); Protein, Total 7.6 g/dL (6.4-8.2); Sodium Level 146 mmol/L (136-145)
[2019-05-21 18:50] LABS: Differential Indicated SCAN CRITERIA MET
[2019-05-21 18:51] LABS: Anisocytosis RARE; Macrocytosis RARE; Platelet Estimate ADEQUATE (ADEQ); Red Cell Morphology N CHROM NORMAL (NORM C&C)
[2019-05-21 19:03] LABS: Lactic Acid 3.3 mmol/L (0.4-2.0)
--- NOTE | 2019-05-21 19:14 | HP.PCM_ITS ---
Problem List (1) ICH (intracerebral hemorrhage) Status: Acute Qualifiers: Intracerebral hemorrhage etiology: traumatic Encounter type: initial encounter Laterality: right Loss of consciousness presence/duration: with LOC of unspecified duration Qualified Code(s): S06.349A - Traumatic hemorrhage of right cerebrum with loss of consciousness of unspecified duration, initial encounter (2) Obtundation Status: Acute (3) NSTEMI (non-ST elevated myocardial infarction) Status: Resolved History of Present Illness Date of Admission: 05/21/19 Chief Complaint: unresponsive The patient is a 68 year old F found unresponsive at her home. History obtained through the emergency room physician as well as the patient's cousin as patient is intubated and unresponsive. Patient's cousin states that the patient calls her every day around 3 and did not call her today and went to her apartment and patient was found unresponsive. Patient was brought to the hospital and intubated. Patient was found to have a large right-sided cerebral hemorrhage with shift. I was brought on board for disposition in the hospital. I made recommendation of talking with the patient's next of kin, who would be her sister. They are unable to do so until later were actually spoke with the patient's sister, Rand and stated that condition was terminal and recommended de-escalation of care and hospice. Rand agreed and patient was subsequently extubated in the emergency room. Patient still with sonorous respirations but is currently hemodynamically stable and will be sent to the medical surgical unit with a hospice consultation if the patient does survive overnight. [] Past Medical History Past Medical History (Chronic Problems): Chronic Problems (Last Reviewed 03/24/19 @ 10:41 by Giovani Alford MD) Peripheral vascular occlusive disease (Chronic) RLE Atherosclerosis of coronary artery of [place] heart without angina pectoris (Chronic) PCI-RUTHY-Mid LCX w/ 2.5 X 20 mm Promus Synergy & POBA-Ostium of OM1 & OM2 08/31/2018; PCI-RUTHY-MID LAD w/ 3.0 X 24 mm Promus Synergy 09/30/2018. Essential (primary) hypertension (Chronic) Nicotine dependence (Chronic) History of coronary artery stent placement (Chronic 09/30/18) Stent-Prox LAD and LCx ?; PCI-RUTHY-Mid LCX w/ 2.5 X 20 mm Promus Synergy & POBA-Ostium of OM1 & OM2 08/31/2018; PCI-RUTHY-MID LAD w/ 3.0 X 24 mm Promus Synergy 09/30/2018. Hyperlipidemia (Chronic) Medical History: Medical History (Last Reviewed 05/21/19 @ 19:18 by John Pal DO) Peripheral vascular occlusive disease (Chronic) I73.9 RLE Atherosclerosis of coronary artery of [place] heart without angina pectoris (Chronic) I25.10 PCI-RUTHY-Mid LCX w/ 2.5 X 20 mm Promus Synergy & POBA-Ostium of OM1 & OM2 08/31/2018; PCI-RUTHY-MID LAD w/ 3.0 X 24 mm Promus Synergy 09/30/2018. Essential (primary) hypertension (Chronic) I10 Nicotine dependence (Chronic) F17.200 NSVT (nonsustained ventricular tachycardia) (Resolved) I47.2 NSTEMI (non-ST elevated myocardial infarction) (Resolved) I21.4 Hyperlipidemia (Chronic) E78.5 Diabetes mellitus type 2 in obese E11.69, E66.9 Morbid obesity E66.01 Allergies cilostazol [From Pletal] Adverse Reaction (Verified 03/24/19 10:27) dizzy Home Medications: Ambulatory Orders Medication Instructions Recorded Amlodipine [Norvasc] 10 mg PO DAILY 05/21/19 Aspirin 325 mg PO DAILY@0800 05/21/19 Atorvastatin Calcium [Lipitor] 80 mg PO QHS 05/21/19 Carvedilol [Coreg] 6.25 mg PO BID 05/21/19 Clopidogrel Bisulfate [Clopidogrel] 75 mg PO DAILY 05/21/19 Hydrochlorothiazide [Hctz] 25 mg PO DAILY 05/21/19 Isosorbide Mononitrate [Isosorbide 30 mg PO DAILY 05/21/19 Mononitrate ER] Lisinopril [Zestril] 20 mg PO BID 05/21/19 Surgical History: Surgical History (Last Reviewed 05/21/19 @ 19:18 by John Pal DO) History of coronary artery stent placement (Chronic) Onset Date: 09/30/18 Z95.5 Stent-Prox LAD and LCx ?; PCI-RUTHY-Mid LCX w/ 2.5 X 20 mm Promus Synergy & POBA-Ostium of OM1 & OM2 08/31/2018; PCI-RUTHY-MID LAD w/ 3.0 X 24 mm Promus Synergy 09/30/2018. History of open reduction and internal fixation (ORIF) procedure Z98.890 gabriela in right femur History of open reduction and internal fixation (ORIF) procedure Z98.890 pins left femur Surgical History: - - Leg surgery secondary to trauma, coronary artery stents Psychiatric History: No pertinent psych hx TAKER OFF History: No pertinent TAKER OFF history Smoking Status: Unknown if ever smoked - *Family History Maternal Family History: Family History (Last Reviewed 03/24/19 @ 10:41 by Giovani Alford MD) Brother Cancer History Items: No pertinent history Paternal Family History: Family History (Last Reviewed 03/24/19 @ 10:41 by Giovani Alford MD) Brother Cancer History Items: Heart Disease Review of Systems Comment: Unable to obtain as patient is intubated and unresponsive. Please see HPI for further details VTE Information - Inpt Only VTE Present on Admission: No VTE Mechan Device Prophylaxis: None VTE Pharm Prophylaxis ordered?: No Reason prophylaxis not ordered:: Hospice Care Patient Problems: Active and Suspected Problems (Last Reviewed 03/24/19 @ 10:41 by Giovani Alford MD) ICH (intracerebral hemorrhage) (Acute) Obtundation (Acute) - Physical Exam General: - - Obtunded. Afebrile. HEENT: Atraumatic, Normocephalic, - - Pupils are dilated and unreactive. No icterus. Oral: - - The tracheal tube and orogastric tube in place Neck: No Nodes, Thyroid Normal Size and Texture Lungs: Clear to auscultation, Normal air movement, No rhonchi, No wheeze, No rales Cardiovascular: Regular rate, Regular Rhythm, Normal S1, Normal S2, No murmurs Abdomen: Bowel Sounds Present, Soft, Non Tender, Non-Distended, No Hepato- splenomegaly Extremities: No edema, No Calf Tenderness Skin: No rashes, No breakdown Musculoskeletal: No Tenderness to Palpation of Joints or Extremities, No Muscle Wasting Neurological: - - Absent corneal reflex. Patient has extensor posturing. Vital Signs Temp Pulse Resp BP Pulse Ox 38.6 C H 67 18 128/69 H 100 05/21/19 18:05 05/21/19 18:05 05/21/19 18:05 05/21/19 18:05 05/21/19 18:05 Oxygen Delivery Method Room Air Weight: 120.202 kg Body Mass Index (BMI) 46.9 Finger Stick Blood Glucose 185 Laboratory Tests Past 24 Hrs 05/21/19 05/21/19 05/21/19 17:00 17:59 17:59 WBC 17.7 H RBC 5.57 H Hgb 17.2 H Hct 51.5 H MCV 92.5 MCH 30.9 MCHC 33.4 RDW Std Deviation 44.6 H RDW Coeff of [place] 13.2 Plt Count 229 MPV 11.0 Immature Gran % (Auto) 0.600 Neut % (Auto) 79.9 H Lymph % (Auto) 5.6 L Garrard % (Auto) 12.9 H Eos % (Auto) 0.8 Baso % (Auto) 0.2 Absolute Neuts (auto) 14.1 H Absolute Lymphs (auto) 0.99 Nucleated RBC % 0 Differential Comment SEE COMMENT Diff Path Review May foll Platelet Estimate ADEQUATE RBC Morphology N CHROM Anisocytosis RARE Macrocytosis RARE PT 15.2 H INR 1.2 APTT 31.4 Sodium Potassium Chloride Carbon Dioxide Anion Gap BUN Creatinine Estim Creat Clear Calc Est GFR (MDRD) Af Amer Est GFR (MDRD) Non-Af BUN/Creatinine Ratio Glucose Lactic Acid Calcium Total Bilirubin AST ALT Alkaline Phosphatase CK Isoenzymes CK-MM (CK-3) CK-MB (CK-2) CK-BB (CK-1) Troponin I Total Protein Albumin Globulin Albumin/Globulin Ratio Urine Color Yellow Urine Clarity Cloudy Urine pH 8.0 Ur Specific [place] 1.010 Urine Protein 100 H Urine Glucose (UA) Normal Urine Ketones 5 H Urine Occult Blood 250 H Urine Nitrite Negative Urine Bilirubin Negative Urine Urobilinogen Normal Ur Leukocyte Esterase 25 H Urine RBC > 100 SEEN Urine WBC 0-5 SEEN Ur Squamous Epith Cells 0 SEEN Urine Bacteria 0 SEEN Urine Mucus 0 SEEN 05/21/19 05/21/19 05/21/19 17:59 17:59 17:59 WBC RBC Hgb Hct MCV MCH MCHC RDW Std Deviation RDW Coeff of [place] Plt Count MPV Immature Gran % (Auto) Neut % (Auto) Lymph % (Auto) Garrard % (Auto) Eos % (Auto) Baso % (Auto) Absolute Neuts (auto) Absolute Lymphs (auto) Nucleated RBC % Differential Comment Diff Path Review Platelet Estimate RBC Morphology Anisocytosis Macrocytosis PT INR APTT Sodium 146 H Potassium 3.6 Chloride 108 H Carbon Dioxide 29.0 Anion Gap 9 BUN 24 H Creatinine 0.95 Estim Creat Clear Calc 48.19 Est GFR (MDRD) Af Amer 76 Est GFR (MDRD) Non-Af 63 BUN/Creatinine Ratio 25.3 H Glucose 165 H Lactic Acid 3.3 H Calcium 9.0 Total Bilirubin 0.80 AST 60 H ALT 43 Alkaline Phosphatase 101 CK Isoenzymes Pending CK-MM (CK-3) Pending CK-MB (CK-2) Pending CK-BB (CK-1) Pending Troponin I 0.712 H* Total Protein 7.6 Albumin 3.3 Globulin 4.3 H Albumin/Globulin Ratio 0.8 L Urine Color Urine Clarity Urine pH Ur Specific [place] Urine Protein Urine Glucose (UA) Urine Ketones Urine Occult Blood Urine Nitrite Urine Bilirubin Urine Urobilinogen Ur Leukocyte Esterase Urine RBC Urine WBC Ur Squamous Epith Cells Urine Bacteria Urine Mucus POC Glucose 05/21/19 17:08 POC Glucose 185 H Clinical Impression(s) from Imaging Studies Brain CT 05/21/19 16:37 IMPRESSION: Large right cortical cerebral hemorrhage as discussed. There is subfalcine herniation with 1.7 cm left to right midline shift. Loss of the basilar cisterns. Enlargement of the left lateral ventricle. There is also intraventricular hemorrhage and subarachnoid hemorrhage. Findings may be secondary to hypertensive hemorrhage, aneurysm rupture or underlying neoplasm that bled. There is also probably a small subdural component in the right temporal lobe Vasogenic edema surrounds the hemorrhage Suspect impending tentorial herniation as well as uncal herniation Individualized dose optimization techniques were used for this CT. at 1742 Reported and signed by: Hanny Franco DO Electronically Signed: Hanny Franco DO at 17:40 EDT Tel , Service support , ADDENDUM: 05/21/19 1754 IMPRESSION: Large right cortical cerebral hemorrhage as discussed. There is subfalcine herniation with 1.7 cm left to right midline shift. Loss of the basilar cisterns. Enlargement of the left lateral ventricle. There is also intraventricular hemorrhage and subarachnoid hemorrhage. Findings may be secondary to hypertensive hemorrhage, aneurysm rupture or underlying neoplasm that bled. There is also probably a small subdural component in the right temporal lobe Vasogenic edema surrounds the hemorrhage Suspect impending tentorial herniation as well as uncal herniation Individualized dose optimization techniques were used for this CT. at 1742 Reported and signed by: Hanny Franco DO N.B. : The above information has been verbally conveyed by Hanny Franco DO to Dr. Dov Hernandez MD, on 05/21/2019 17:43:47 (ET). Electronically Signed: Hanny Franco DO at 17:40 EDT Tel , Service support , Chest X-Ray 05/21/19 17:25 IMPRESSION: ET tube with the tip approximately 3.9 cm proximal to the gaby NG tube in the stomach Mild vascular prominence at 1743 Reported and signed by: Hanny Franco DO Electronically Signed: Hanny Franco DO at 17:42 EDT Tel , Service support , Assessment/Plan All Active Problems (Last Reviewed 03/24/19 @ 10:41 by Giovani Alford MD) ICH (intracerebral hemorrhage) (Acute) Obtundation (Acute) NSVT (nonsustained ventricular tachycardia) (Resolved) NSTEMI (non-ST elevated myocardial infarction) (Resolved) 1. Intracranial hemorrhage * Also noted some herniation of 1.7 cm left of the right midline shift. * Suspected traumatic, perhaps from a fall but also complicated by the fact that she is on aspirin and clopidogrel * , even with aggressive management is imminent * Plan is for hospice care and so no transfer to tertiary facility and de- escalation of care. 2. Non-STEMI * Unclear if primary or secondary favoring the latter, however * As patient is hospice care will not pursue any additional work-up and management at this time 3. VTE prophylaxis: Not indicated as patient is hospice care Advanced care planning: Spent 20 minutes discussing with the patient's sister, Rand, and her cousin. Explained that the prognosis is dismal and terminal. Recommended comfort measures and de-escalation of care. The patient sister agreed but also her cousin was in agreement stating that patient would never want this anyways. Patient was terminally extubated in the emergency room and I will focus strictly on comfort measures here on out. If patient does survive t he night then hospice to see and dissipation for inpatient hospice if patient does survive. Life expectancy is hours to days. Code Visit Inpatient E&M: 95437 Init Hosp L3 Procedures: 86420 Advncd Care Plan 30 Min
[2019-05-21 20:09] VITALS: BP 152/74; PULSE 76; RESP 22
[2019-05-21 20:39] VITALS: BP 171/82; PULSE 77; RESP 18
--- NOTE | 2019-05-21 21:10 | NURSING ---
Pt arrived to room 322, this RN immediately called into room. Pt with agonal breaths. at 2109, confirmed with Patric Flores RN. Cousin at bedside.
--- NOTE | 2019-05-21 21:40 | PCM.DEATH ---
Preliminary Cause of Intracranial hemorrhage Date of Admission: 05/21/19 Date of : 05/21/19 - Principle Diagnosis Intracranial hemorrhage Problem List: Active and Suspected Problems (Last Reviewed 05/21/19 @ 19:18 by John Pal DO) ICH (intracerebral hemorrhage) (Acute) Obtundation (Acute) Hospital Course Patient is a 68-year-old female with a significant history of CAD status post stent; diabetes mellitus; hypertension; morbid obesity; nicotine dependence who presented to the emergency department because of unresponsiveness. Because patient's cousin did not hear from patient which appeared to be unusual patient's cousin went to check on patient and realized that the patient was unresponsive. Patient was brought to the emergency department. At the emergency department patient was intubated because of low Renick Coma Scale. CT of the head showed large intraventricular hemorrhage and subarachnoid hemorrhage with subfalcine herniation; and left to right midline shift. Also patient had non-ST elevation SD as her troponin was severely elevated. After clarification of CODE STATUS with family it was determined that patient would not want any life-saving measures in the setting of poor prognosis. Patient was extubated and admitted to medical surgical unit for comfort care. As soon as she arrived at the medical surgical unit two nurses confirm the patient had no pulse or respiration and that she was . Time of was 2109. Date of was 05-21-2019. Patient was examined by physician. Patient had no gag reflex. Her pupils were fixed dilated and nonreactive. Patient had no pulses. She had no heart or lung sounds. Patient had . Code Visit Inpatient E&M: [id number] [facility] Hosp
--- NOTE | 2019-05-21 21:45 | NURSING ---
This Rn was in the room when Sarai Bae was talking to the pts sister Rand Givens, in [place]. Rand verbalized to this Rn Agatha Flores that Luz Bae will be the one to decide on which home Maki Gillis will go. Luz will call the nursing credit and loan collections supervisor 05/22/19 to let them know which home to call.
[2019-05-21 22:11] LABS: Reflex Lactate? Y
[2019-05-24 13:25] LABS: Pathologist Review Reviewed
[2019-05-24 16:07] LABS: Creatine Kinase MB 1 % (0-3); Creatine Kinase MM 99 % (97-100); Creatine Kinase,Total,Serum 1110 U/L (24-173); Macro I 0 % (Not Observed); Macro II 0 % (Not Observed)
[2019-05-25 09:58] LABS: Creatine Kinase BB 0 % (0)
== END 2019-05-21 21:10 | DRG 64 ==
LOC: ED 16:26 → MS3 21:24
PROVIDERS: Emergency Provider Emergency Medicine; Family Provider Family Medicine; PCP Family Medicine
DX: I62.9 Nontraumatic intracranial hemorrhage, unspecified (principal); I21.4 Non-ST elevation (NSTEMI) myocardial infarction; Z68.42 Body mass index [BMI] 45.0-49.9, adult; E66.01 Morbid (severe) obesity due to excess calories; Z51.5 Encounter for palliative care; I25.10 Atherosclerotic heart disease of native coronary artery without angina pectoris; I10 Essential (primary) hypertension; E78.00 Pure hypercholesterolemia, unspecified; E11.9 Type 2 diabetes mellitus without complications; I25.2 Old myocardial infarction; Z95.5 Presence of coronary angioplasty implant and graft; Z79.82 Long term (current) use of aspirin
CPT/HCPCS: 31500; 51702; 70450; 71045; 80053; 81001; 82550; 82552; 82962; 83605; 84484; 85025; 85610; 85730; 93005; 94002; 99251; 99285; J7030; J7040; A4216; G0463